=== PATIENT | male | born 1955 | race Caucasian/White ===

== ENCOUNTER 2019-05-18 20:25 | Emergency (ER) | payer MEDICARE, MEDICAID, SELFPAY ==
[2019-05-18 20:44] VITALS: BP 121/67; PULSE 94; RESP 13; TEMP 36.2; O2SAT 99
[2019-05-18 21:15] VITALS: RESP 14
--- NOTE | 2019-05-18 21:28 | ED.WOUNDLAC ---
HPI - Wound/Laceration General Chief Complaint: Wound/Laceration Stated Complaint: toe will not stop bleeding Time Seen by Provider: 05/18/19 20:50 Source: patient Mode of arrival: ambulatory Limitations: no limitations History of Present Illness HPI narrative: Omero is a 64-year-old male patient. He presents ambulatory to the emergency room. He states that he was trimming his toenails. He apparently just pulled the left great toenail out completely. He had bleeding. He was unable to control it at home and he came to the emergency room ambulatory. Denies any pain. Omero is a very poor historian. He did not bring any of his medication bottles with him. . He says that he is on some kind of blood thinner does not know what it is. He does not get regular blood tests for INR. He does not know why he is on a the blood thinner. He denies [place]. He denies history of stroke. Not sure about DVT or PE. However, mother time Omero arrived in the ER, he is completely asymptomatic. There was no bleeding from the left great toenail area. The nail bed is clean. This was further cleansed with wound cleanser. Sterile pressure dressings were applied. Omero says that he will follow-up with his family physician tomorrow. He has no complaints at this time. Onset (ago): minute(s) ( 30 minutes ago) Extremity Location: Left: foot Place: home Context: accidental Associated symptoms: other ( Accidentally pulled of the left great toenail while trying to trim it) Treatments prior to arrival: other ( applied pressure at home) Related Data Home Medications Medication Instructions Recorded Confirmed Unable to Obtain Home Medications 05/18/19 05/18/19 Allergies Allergy/AdvReac Type Severity Reaction Status Date / Time No Known Allergies Allergy Verified 05/18/19 20:43 Review of Systems Review of Systems: All systems reviewed & are unremarkable except as noted in HPI and below Constitutional: Constitutional: Reports as per HPI, Reports no additional constitutional complaints, Denies chills and Denies fever(s) Eyes: Eyes: Reports as per HPI, Reports no additional eye complaints and Denies change in vision ENT: Reports system reviewed and no additional complaints, except as documented, Denies epistaxis and Denies sore throat Cardiovascular: Cardiovascular: Reports as per HPI, Reports no additional cardiovascular complaints, Denies chest pain and Denies radiating jaw, neck or arm pain Respiratory: Respiratory: Reports as per HPI, Denies cough and Denies dyspnea Gastrointestinal: Gastrointestinal: Reports as per HPI, Denies abdominal pain, Denies nausea and Denies vomiting Musculoskeletal: Musculoskeletal: Reports no additional musculoskeletal complaints and Denies back pain Integumentary/Breasts: Skin/Breast: Reports system reviewed and no additional complaints, except as docu Comments: please see HPI narrative for details Neurologic: Reports system reviewed and no additional complaints, except as documented, Reports as per HPI, Denies dizziness, Denies focal weakness and Denies weakness Psychiatric: Psychiatric: Reports no additional psychiatric complaints and Denies anxiety Endocrine: Endocrine: Reports no additional endocrine complaints, Denies polydipsia and Denies polyuria Hematologic/Lymphatic: Hematologic/Lymphatic: Reports no additional hematologic/lymphatic complaints and Reports as per HPI Comments: please see HPI narrative. Omero says that he is on some kind of blood thinner but does not know what it is. Allergic/Immunologic: Allergic/Immunologic: Reports no additional allergic/immunologic complaints, Reports as per HPI, Denies lip swelling and Denies tongue swelling PMF Past Medical History Medical History (Updated 05/18/19 @ 21:40 by Jorge Chacko MD) Medical history unknown Surgical History Surgical History (Updated 05/18/19 @ 21:36 by Jorge Chacko MD) No significant past surgical history Social H
== END 2019-05-18 21:15 | disposition home or self-care (01) ==
PROVIDERS: Emergency Provider Surgery; PCP Family Medicine
DX: S91.209A Unspecified open wound of unspecified toe(s) with damage to nail, initial encounter (principal); W45.8XXA Other foreign body or object entering through skin, initial encounter
CPT/HCPCS: 99282

== ENCOUNTER 2019-09-15 23:49 | Inpatient (IN) | payer MEDICARE, MEDICAID, SELFPAY ==
--- NOTE | ~2019-09-15 | CT_ITS ---
EXAMINATION: CT brain wo con DATE: 09/16/2019 01:04 INDICATION: Syncope. Prefall laceration. Contusion top of the head. TECHNIQUE: Computed tomography (CT) of the head was performed without intravenous contrast. The dose- length product was 681.00 mGy-cm. The mA was adjusted according to patient size. Iterative reconstruc tion technique was employed. COMPARISON: CT dated 02/14/2018 FINDINGS: There are scattered mild periventricular and subcortical white matter changes, most likely related to small vessel ischemic disease (microangiopathy). No acute intracranial hemorrhage, infarct ion, mass or mass effect. No ventriculomegaly or midline shift. Basilar cisterns are patent. Mucosal thickening right maxillary sinus. Mastoids are pneumatized. No depressed skull fractures. Right front al scalp hematoma. No underlying skull fracture. IMPRESSION: 1. No acute intracranial abnormality. 2: Chronic age-related findings. 3: Right maxillary sinusitis. Reviewed, dictated and finalized at location A.
--- NOTE | ~2019-09-15 | CT_ITS ---
EXAMINATION: CT cervical spine wo con DATE: 09/16/2019 01:04 INDICATION: Syncope. Neck pain. TECHNIQUE: Computed tomography (CT) of the cervical spine was performed without intravenous contrast. The dose-length product was 497 mGy-cm. Automated exposure control and iterative reconstruction tech nique were employed. COMPARISON: None FINDINGS: No acute fracture or traumatic malalignment. Straightening of cervical lordosis. There is d egenerative anterolisthesis at C3-4. There is incomplete fusion of the C1 ring, developmental variant . Odontoid process within normal limits. Moderate multilevel uncinate hypertrophy. Lung apices are no rmal. IMPRESSION: 1. No acute abnormality of the cervical spine. Reviewed, dictated and finalized at location A.
[2019-09-15 23:50] VITALS: BP 102/63; PULSE 84; RESP 16; TEMP 35.6; O2SAT 97
[2019-09-16] VITALS (13 sets, daily range): BP systolic 83–116; BP diastolic 47–76; PULSE 88–121; RESP 14–18; TEMP 36.4–37; O2SAT 95–98; BMI 27.4
--- NOTE | 2019-09-16 | ECG_ITS ---
Measurements Intervals [place] Rate: 86 P: -6 MD: 166 QRS: 75 QRSD: 137 T: 35 QT: 392 QTc: 470 Interpretive Statements SINUS RHYTHM RIGHT BUNDLE BRANCH BLOCK ABNORMAL ECG Electronically Signed On 09-16-2019 7:17:08 CDT by Jim Ruiz D.O.
--- NOTE | 2019-09-16 | ED.SYNCOPE ---
HPI - Syncope General Chief Complaint: Fall Stated Complaint: pain Time Seen by Provider: 09/16/19 00:02 Source: patient and EMS Mode of arrival: EMS History of Present Illness HPI narrative: 64-year-old male patient was transported to the ER by EMS from his apartment. Apparently the EMS was called for an unresponsive male of by the neighbor stated the EMS on arrival found the patient initially not answering but immediately he woke up and open his eyes and started responding to them. The EMS noted a lot of blood on the floor and the reilly and apparently the patient had fallen several times the patient does not have recall of any falls. He has apparently passed out. Patient has a history of syncopal episodes and on of this month he was seen by the same EMS crew and [place] [facility] [place] taken to [facility] and apparently had a cardiac workup where he was diagnosed with coronary artery disease but no stents were placed. The patient states that he did have several beers this evening but does not remember falling and has no further addition to his history. He does complain about pain in the head. He denies doing any drugs and does admit to smoking. Patient does admit to using blood thinners. Um he is unclear about the loss of consciousness or feeling faint. He is not complaining of any pain in the neck however he has a C-collar in place. Patient is denying any pain in the chest or abdomen or the extremities. Related Data Home Medications Medication Instructions Recorded Confirmed aripiprazole 5 mg PO DAILY 09/16/19 09/16/19 atorvastatin 40 mg PO HS 09/16/19 09/16/19 clopidogrel 75 mg PO DAILY 09/16/19 09/16/19 duloxetine 60 mg PO DAILY 09/16/19 09/16/19 famotidine 20 mg PO DAILY 09/16/19 09/16/19 lamotrigine 200 mg PO DAILY 09/16/19 09/16/19 meclizine 25 mg PO PRN 09/16/19 09/16/19 metoprolol succinate 25 mg PO DAILY 09/16/19 09/16/19 mirtazapine 15 mg PO DAILY 09/16/19 09/16/19 naproxen 500 mg PO PRN 09/16/19 09/16/19 omeprazole 40 mg PO DAILY 09/16/19 09/16/19 quetiapine 200 mg PO DAILY 09/16/19 09/16/19 tamsulosin 0.4 mg PO DAILY 09/16/19 09/16/19 Allergies Allergy/AdvReac Type Severity Reaction Status Date / Time No Known Allergies Allergy Verified 06/01/19 09:13 Review of Systems Review of Systems: All systems reviewed & are unremarkable except as noted in HPI and below PMFSH Past Medical History Medical History (Updated 09/16/19 @ 01:46 by Elzbieta Shelley MD) CAD (coronary artery disease) GERD (gastroesophageal reflux disease) Hyperlipidemia Hypertension Medical history unknown Surgical History Surgical History (Updated 09/16/19 @ 01:06 by Elzbieta Shelley MD) No significant past surgical history No significant past surgical history Social History Social History (Updated 09/16/19 @ 00:19 by Elzbieta Shelley MD) Years smoked: 40 Smoking status: Current every day smoker Alcohol intake: current Substance use: never Living arrangements: alone Exam Const: General: no acute distress, alert and ill appearing Nutritional Appearance: well nourished Orientation/consciousness: patient oriented x3 Limitations: no limitations HENMT: Head: normal to inspection and laceration (Frontal scalp) Ears: external ears normal Face and sinus: normal facial exam Eyes: Conjunctivae: conjunctivae normal Pupils: Equal, round and reactive pupils present EOM: EOMs intact bilaterally Neck: Neck: normal visual inspection Chest: Chest palpation & inspection: normal inspection of the chest and no tenderness Other: C Collar in place Resp: Effort & Inspection: normal respiratory effort, no retractions and no use of accessory muscles Auscultation: clear to auscultation bilaterally, no rhonchi, no wheezes and lung sounds not diminished Cardio: Rate: regular rate Rhythm: regular rhythm GI: Auscultation: normal bowel sounds Other: soft and nontender abdomen with
[2019-09-16 00:15] LABS: Basophils Absolute Auto 0.04 K/mm3 (0.00-0.10); Basophils Percent Auto 0.4 % (0.0-1.0); Eosinophils Absolute Auto 0.22 K/mm3 (0.02-0.50); Hematocrit 26.8 % (40.0-54.0); Hemoglobin 9.1 g/dL (14.0-18.0); Immature Granulocyte Absolute 0.09 K/mm3 (0.00-0.00); Immature Granulocyte Percent A 0.8 % (0.0-0.0); Lymphocytes Absolute Auto 3.17 K/mm3 (1.10-4.50); Lymphocytes Percent Auto 28.2 % (18.0-42.0); Mean Corpuscular Hemoglobin 30.4 pg (27.0-31.0); Mean Corpuscular Volume 89.6 fL (78.0-102.0); Mean Platelet Volume 8.4 fl (8.7-11.0); Monocytes Absolute Auto 0.98 K/mm3 (0.10-0.90); Monocytes Percent Auto 8.7 % (2.0-11.0); Neutrophils Absolute Auto 6.8 K/mm3 (1.7-7.2); Neutrophils Percent Auto 59.9 % (50.0-70.0); Platelet Count Result 341 K/mm3 (150-420); Red Blood Count 2.99 M/mm3 (4.70-6.10); Red Cell Distribution Width 14.8 % (11.6-14.4); White Blood Count 11.3 K/mm3 (4.8-10.8)
[2019-09-16 00:22] LABS: INR 1.1; Prothrombin Time 11.1 Seconds (9.64-11.0)
[2019-09-16 00:27] LABS: Alanine Aminotransferase 13 U/L (16-63); Albumin Level 3.2 g/dL (3.4-5.0); Anion Gap 14.5 mmol/L (7-16); Aspartate Amino Transferase 15 U/L (15-37); Bilirubin,Total 0.2 mg/dL (0.00-1.00); Blood Urea Nitrogen 8 mg/dL (7-18); Calcium 7.8 mg/dL (8.5-10.1); Carbon Dioxide 24 mmol/L (21-32); Chloride 91 mmol/L (98-108); Estimated CRCL calculation 56 ml/min; Estimated Glomerular Filt Rate > 60; Ethanol 59 mg/dL (0-6); Glucose 147 mg/dL (70-99); Osmolality Calculated 263 mOsm/kg (285-295); Potassium 3.5 mmol/L (3.5-5.1); Sodium 126 mmol/L (136-145); Total Protein 5.8 g/dL (6.4-8.2)
[2019-09-16 00:29] LABS: Add Urine Microscopic? NO; Appearance Urine Clear (Clear); Bilirubin Urine Negative (Negative); Blood Urine Negative (Negative); Color Urine Yellow (Yellow); Glucose Urine UA Negative (Negative); Ketones Urine Negative (Negative); Leukocyte Esterase Ur Negative (Negative); Nitrate Urine Negative (Negative); Protein Urine Negative (Negative); Specific Grav Ur <= 1.005 (1.010-1.020); Urobilinogen Urine 0.2 mg/dL (0.2-1.0); pH Urine 6.5 (5.0-8.0)
[2019-09-16 00:36] LABS: Alkaline Phosphatase 65 U/L (46-116)
[2019-09-16 00:38] LABS: Troponin I < 0.02 ng/mL (0.00-0.056)
--- NOTE | 2019-09-16 00:44 | PC.NURSE ---
1 L NS BOLUS STARTED BY SAAS COMPLETE AT THIS TIME.
--- NOTE | 2019-09-16 00:46 | PC.NURSE ---
REPORT PROVIDED TO JACKLYN DOUGLAS
--- NOTE | 2019-09-16 01:11 | PC.NURSE ---
CT reports received, pts. head lac. cleansed and prepped for alethea. Pt. remains A&Ox3.
[2019-09-16] MEDS: LIDOCAINE HCL 1% LOCAL INJ 20 ML VIAL (01:16)
[2019-09-16 02:43] LABS: Magnesium 1.5 mg/dL (1.8-2.4)
[2019-09-16] MEDS: SODIUM CHLORIDE 0.9% IV 1,000 ML 120 ML IV CONT (03:41)
--- NOTE | 2019-09-16 04:16 | PC.NURSE ---
Dr. Shelley called to clarify diet order. Order received and noted.
--- NOTE | 2019-09-16 04:36 | PC.NURSE ---
Pt alert, oriented, forgetful. Pt has history of memory deficits . Librado in place to head, intact, no weeping of fluids. Naranjo in place draining clear yellow urine.
--- NOTE | 2019-09-16 06:04 | PC.NURSE ---
Telemetry continues SR.
--- NOTE | 2019-09-16 08:38 | PM.IMHP ---
H&P: HPI History of Present Illness Chief complaint: syncope postural hypotension Narrative: Omero Spangler is a 64 year old male that presented to the ED today post fall patient has a past medical history CAD, GERD, hyperlipidemia, hypertension , alcohol addiction and syncope. According to patient he went to bed approximately 8:00 p.m. after having 6 beers he can remember anything after going to bed. Patient's medical records indicate that his neighbor called EMS because he was unresponsive. When EMS arrived patient was found on the floor with a lot of blood on the floor . Patient had a similar episode on September 08 2019 and was transported to [facility]. Patient was diagnosed with CAD and stented by Dr. Meza. patient did that his lightheadedness has been approximately 6 months. his vital signs are 115/76, 100, 16, 97.5, 97% on room air He noted that when he stands up too quickly he gets lightheaded and feels like he is going to faint. patient did receive a laceration to his right frontal head. there is approximately [address] he also has a hematoma to his left parietal scalp. while patient was in the ED patient received IV fluid CT of the head with cervical spinal negative for fractures, intercranial hemorrhage or dislocation. EKG sinus rhythm, patient's sodium level 126 with a blood alcohol level of 59 troponin was negative white count 11. C-collar was placed on patient by EMS. Patient admitted for posteural hypotension, hyponatremia, anemia and syncope. it was reported by nursing staff that patient was unable to stand today for blood pressure due to dizziness, lightheadedness and feeling faint. Review of Systems Review of Systems: Narrative: CONSTITUTIONAL :No weight loss, fever, chills, weakness or fatigue.feeling faint and lightheaded HEENT: Eyes: No diplopia or blurred vision. ENT: No earache, sore throat or runny nose. CARDIOVASCULAR: No pressure, squeezing, strangling, tightness, heaviness or aching about the chest, neck, axilla or epigastrium. RESPIRATORY: No cough, shortness of breath, PND or orthopnea. GASTROINTESTINAL: No nausea, vomiting or diarrhea. GENITOURINARY: No dysuria, frequency or urgency. MUSCULOSKELETAL: No muscle, back pain, joint pain or stiffness. SKIN: laceration to the right side of head. NEUROLOGIC: No paresthesias, fasciculations, seizures or weakness. PSYCHIATRIC: No disorder of thought or mood. ENDOCRINE: No heat or cold intolerance, polyuria or polydipsia. HEMATOLOGICAL: No easy bruising or bleeding. [facility] Past Medical History Medical History (Updated 09/16/19 @ 01:46 by Elzbieta Shelley MD) CAD (coronary artery disease) GERD (gastroesophageal reflux disease) Hyperlipidemia Hypertension Medical history unknown Surgical History Surgical History (Updated 09/16/19 @ 01:06 by Elzbieta Shelley MD) No significant past surgical history No significant past surgical history Family History Family History (Updated 09/16/19 @ 04:24 by Kiara Cui LPN) Father Cancer Mother Cancer Social History Social History (Updated 09/16/19 @ 00:19 by Elzbieta Shelley MD) Years smoked: 40 Smoking status: Former smoker Tobacco type: cigarettes Second hand tobacco smoke exposure: Yes Alcohol intake: current Substance use: never Living arrangements: alone Gender identity (if verbalized by the patient): Male Spiritual care concerns: No Meds Home Medications and Allergies Home Medications Medication Instructions Recorded Confirmed Type aripiprazole 5 mg PO DAILY 09/16/19 09/16/19 History atorvastatin 40 mg PO HS 09/16/19 09/16/19 History clopidogrel 75 mg PO DAILY 09/16/19 09/16/19 History duloxetine 60 mg PO DAILY 09/16/19 09/16/19 History famotidine 20 mg PO DAILY 09/16/19 09/16/19 History lamotrigine 200 mg PO DAILY 09/16/19 09/16/19 History meclizine 25 mg PO PRN 09/16/19 09/16/19 History metoprolol succinate 25 mg PO DAILY 09/16/19
[2019-09-16] MEDS: DULoxetine HCL 30 MG CAPSULE.DR 60 MG PO (09:38)
[2019-09-16] MEDS: MIDODRINE HCL 2.5 MG TABLET 10 MG PO ×3 (09:39→17:12)
[2019-09-16] MEDS: FAMOTIDINE 20 MG TABLET PO (09:40)
[2019-09-16] MEDS: MIRTAZAPINE 15 MG TABLET PO (09:40)
[2019-09-16] MEDS: CLOPIDOGREL BISULFATE 75 MG TABLET PO (09:40)
[2019-09-16] MEDS: PANTOPRAZOLE 40 MG TABLET PO (09:40)
[2019-09-16] MEDS: lamoTRIgine 100 MG TABLET 200 MG PO (09:40)
[2019-09-16] MEDS: THIAMINE HCL 100 MG TABLET PO (10:12)
[2019-09-16] MEDS: FOLIC ACID 1 MG TABLET PO (10:12)
[2019-09-16] MEDS: ARIPIPRAZOLE 10 MG TABLET 5 MG PO (10:25)
[2019-09-16 10:59] LABS: Hematocrit 23.5 % (40.0-54.0); Hemoglobin 8.2 g/dL (14.0-18.0); Mean Corpuscular HGB Conc 34.9 g/dL (32.0-36.0); Mean Corpuscular Hemoglobin 30.9 pg (27.0-31.0); Mean Corpuscular Volume 88.7 fL (78.0-102.0); Mean Platelet Volume 8.3 fl (8.7-11.0); Platelet Count Result 281 K/mm3 (150-420); Red Blood Count 2.65 M/mm3 (4.70-6.10); Red Cell Distribution Width 14.9 % (11.6-14.4); White Blood Count 9.6 K/mm3 (4.8-10.8)
[2019-09-16 11:09] LABS: Creatinine Urine 14.81 mg/dL (40-278); Potassium Urine Random 13.4 mmol/L (12-62); Sodium Urine Random 11 mmol/L (20-110)
[2019-09-16 11:25] LABS: Alanine Aminotransferase 16 U/L (16-63); Albumin Level 3.3 g/dL (3.4-5.0); Anion Gap 10.1 mmol/L (7-16); Aspartate Amino Transferase 13 U/L (15-37); Bilirubin,Total 0.3 mg/dL (0.00-1.00); Blood Urea Nitrogen 9 mg/dL (7-18); Calcium 8.2 mg/dL (8.5-10.1); Carbon Dioxide 28 mmol/L (21-32); Chloride 100 mmol/L (98-108); Estimated CRCL calculation 64 ml/min; Estimated Glomerular Filt Rate > 60; Glucose 113 mg/dL (70-99); Osmolality Calculated 277 mOsm/kg (285-295); Potassium 4.1 mmol/L (3.5-5.1); Sodium 134 mmol/L (136-145)
[2019-09-16 11:41] LABS: Alkaline Phosphatase 69 U/L (46-116)
[2019-09-16 11:42] LABS: Total Protein Urine Random 11.6 mg/dL (0.0-11.9)
[2019-09-16 12:24] LABS: Magnesium 1.9 mg/dL (1.8-2.4)
[2019-09-16] MEDS: MAGNESIUM SULF 2 GM/WATER 50ML 2 GM/50 ML BAG IVPB (12:40)
[2019-09-16] MEDS: ONDANSETRON INJ 4 MG/2 ML VIAL IV PUSH (13:22)
[2019-09-16] MEDS: SODIUM CHLORIDE 0.9% IV 1,000 ML 50 ML IV CONT (14:12)
--- NOTE | 2019-09-16 15:53 | PC.NURSE ---
PT NEIGHBOR KEN CAN WATER RESOURCES BUSINESS SEGMENT LEADER WHEN DISCHARGED, PLEASE CALL: [phone]
--- NOTE | 2019-09-16 19:37 | PC.NURSE ---
PT SISTER CALLED FOR UPDATE ON PATIENT STATUS, PASSWORD OLGA GIVEN, UPDATE PROVIDED. SISTER REPORTS THAT NEIGHBOR CAN NO LONGER ORDER MANAGEMENT SPECIALIST PATIENT AT DISCHARGE, TO PLEASE CALL HER AT [phone] OR [phone] WHEN PATIENT DISCHARGED.
[2019-09-16] MEDS: ATORVASTATIN 40 MG TABLET PO (20:35)
--- NOTE | 2019-09-16 23:51 | PM.EVENT ---
Event Note Event Note Event Note: I examined the patient and reviewed the chart. I discussed the patient's care with Tran Weaver APN and agree with her assessment and plan.
[2019-09-17] VITALS (8 sets, daily range): BP systolic 102–126; BP diastolic 61–79; PULSE 85–98; RESP 18; TEMP 36.7–37; O2SAT 95–96
[2019-09-17 05:28] LABS: Hematocrit 22.8 % (40.0-54.0); Hemoglobin 7.8 g/dL (14.0-18.0); Mean Corpuscular HGB Conc 34.2 g/dL (32.0-36.0); Mean Corpuscular Volume 90.5 fL (78.0-102.0); Mean Platelet Volume 8.5 fl (8.7-11.0); Platelet Count Result 306 K/mm3 (150-420); Red Blood Count 2.52 M/mm3 (4.70-6.10); Red Cell Distribution Width 15.3 % (11.6-14.4); White Blood Count 6.8 K/mm3 (4.8-10.8)
[2019-09-17 05:46] LABS: Alanine Aminotransferase 15 U/L (16-63); Albumin Level 3.2 g/dL (3.4-5.0); Alkaline Phosphatase 66 U/L (46-116); Anion Gap 10.3 mmol/L (7-16); Aspartate Amino Transferase 13 U/L (15-37); Bilirubin,Total 0.2 mg/dL (0.00-1.00); Blood Urea Nitrogen 8 mg/dL (7-18); Calcium 8.1 mg/dL (8.5-10.1); Carbon Dioxide 29 mmol/L (21-32); Chloride 100 mmol/L (98-108); Estimated CRCL calculation 70 ml/min; Estimated Glomerular Filt Rate > 60; Glucose 104 mg/dL (70-99); Magnesium 2.1 mg/dL (1.8-2.4); Osmolality Calculated 278 mOsm/kg (285-295); Potassium 4.3 mmol/L (3.5-5.1); Sodium 135 mmol/L (136-145); Total Protein 6.1 g/dL (6.4-8.2)
--- NOTE | 2019-09-17 08:32 | P.DS_ITS ---
DS: Admitting Diagnosis Admitting Diagnosis Admitting Diagnosis: Syncope and collapse DS: Discharge Diagnosis Discharge Diagnosis (1) Syncope: Code(s): R55 - Syncope and collapse Status: Acute Assessment and Plan: * possibly secondary to alcohol use versus orthostatic hypertension versus hyponatremia * improved * lying 125/75 with a heart rate of 91 sitting 126/79 with a heart rate of 94 standing 121/61 with heart rate of * continue midodrine 10 mg p.o. t.i.d. 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 * EKG sinus rhythm with right bundle block branch * CT of the head and cervical spine negative for fractures, hemorrhage or dislocation * patient with laceration to the right frontal [address] also hematoma to the left parietal scalp * alcohol level 59, patient consumes a 6 pack of beer daily * troponins negative (2) Postural hypotension: Code(s): I95.1 - Orthostatic hypotension Status: Acute Assessment and Plan: * refer to syncope and collapse (3) Hyponatremia: Code(s): E87.1 - Hypo-osmolality and hyponatremia Status: Acute Assessment and Plan: * resolved * patient's sodium on admission 126, call patient's primary care physician office December patient's sodium level was 135. Assuming the patient baselines is135. today patient's sodium level was 135 (4) Anemia: Code(s): D64.9 - Anemia, unspecified Status: Acute Assessment and Plan: * patient H&H 9.1 and 26.8. 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 Meza * September 10 patient diagnosed with CAD stent placed * continue atorvastatin (6) GERD (gastroesophageal reflux disease): Code(s): K21.9 - Gastro-esophageal reflux disease without esophagitis Status: Acute Assessment and Plan: * continue Protonix (7) Hypertension: Code(s): I10 - Essential (primary) hypertension Status: Acute Assessment and Plan: * patient blood pressure stable * metoprolol and Flomax will restart, metoprolol will be decreased to half the amount * (8) Hyperlipidemia: Code(s): E78.5 - Hyperlipidemia, unspecified Status: Acute Assessment and Plan: * continue Plavix (9) Alcohol use: Code(s): Z72.89 - Other problems related to lifestyle Status: Acute Assessment and Plan: * patient educated on alcohol cessation * consult case coordination for referrals for counseling * patient denying alcohol use DS: Summary Hospital Course Hospital Course: Omero Spangler is a 64 year old male that presented to the ED post fall. He has a past medical history CAD, GERD, hyperlipidemia, hypertension , alcohol addiction and syncope. According to patient he went to bed approximately 8:00 p.m. after having 6 beers. he can not remember anything after going to bed. Patient's medical records indicate that his neighbor called EMS because he was unresponsive. When EMS arrived patient was found on the floor with a lot of blood on the floor . Patient had a similar episode on September 08 2019 and was transported to [facility]. Patient was diagnosed with CAD and stented by Dr. Meza. patient did note that his lightheadedness started approximately 6 months ago. He noted that when he stands up too quickly he gets lighth
--- NOTE | 2019-09-17 08:32 | PM.DS ---
DS: Admitting Diagnosis Admitting Diagnosis Admitting Diagnosis: Syncope and collapse DS: Discharge Diagnosis Discharge Diagnosis (1) Syncope: Code(s): R55 - Syncope and collapse Status: Acute Assessment and Plan: possibly secondary to alcohol use versus orthostatic hypertension versus hyponatremia improved lying 125/75 with a heart rate of 91 sitting 126/79 with a heart rate of 94 standing 121/61 with heart rate of continue midodrine [address] 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 EKG sinus rhythm with right bundle block branch CT of the head and cervical spine negative for fractures, hemorrhage or dislocation patient with laceration to the right frontal [address] also hematoma to the left parietal scalp alcohol level 59, patient consumes a 6 pack of beer daily troponins negative (2) Postural hypotension: Code(s): I95.1 - Orthostatic hypotension Status: Acute Assessment and Plan: refer to syncope and collapse (3) Hyponatremia: Code(s): E87.1 - Hypo-osmolality and hyponatremia Status: Acute Assessment and Plan: resolved patient's sodium on admission 126, call patient's primary care physician office December patient's sodium level was 135. Assuming the patient baselines is135. today patient's sodium level was 135 (4) Anemia: Code(s): D64.9 - Anemia, unspecified Status: Acute Assessment and Plan: patient H&H 9.1 and 26.8. patient is at baseline (5) CAD (coronary artery disease): Code(s): I25.10 - Atherosclerotic heart disease of [place] coronary artery without angina pectoris Status: Acute Assessment and Plan: patient lathe setup operator is Dr. Meza September 10 patient diagnosed with CAD stent placed continue atorvastatin (6) GERD (gastroesophageal reflux disease): Code(s): K21.9 - Gastro-esophageal reflux disease without esophagitis Status: Acute Assessment and Plan: continue Protonix (7) Hypertension: Code(s): I10 - Essential (primary) hypertension Status: Acute Assessment and Plan: patient blood pressure stable metoprolol and Flomax will restart, metoprolol will be decreased to half the amount (8) Hyperlipidemia: Code(s): E78.5 - Hyperlipidemia, unspecified Status: Acute Assessment and Plan: continue Plavix (9) Alcohol use: Code(s): Z72.89 - Other problems related to lifestyle Status: Acute Assessment and Plan: patient educated on alcohol cessation consult case coordination for referrals for counseling patient denying alcohol use DS: Summary Hospital Course Hospital Course: Omero Spangler is a 64 year old male that presented to the ED post fall. He has a past medical history CAD, GERD, hyperlipidemia, hypertension , alcohol addiction and syncope. According to patient he went to bed approximately 8:00 p.m. after having 6 beers. he can not remember anything after going to bed. Patient's medical records indicate that his neighbor called EMS because he was unresponsive. When EMS arrived patient was found on the floor with a lot of blood on the floor . Patient had a similar episode on September 08 2019 and was transported to [facility]. Patient was diagnosed with CAD and stented by Dr. Meza. patient did note that his lightheadedness started approximately 6 months ago. He noted that when he stands up too quickly he gets lightheaded and feels like he is going to faint. patient did receive a laceration to his right frontal head. there is approximately [address] he also has a hematoma to his left parietal scalp. patient was placed on mididrone 10 mg tid He will discharge on this. Patient was also prescribed Lopressor 25 mg daily. I contacted Dr. Meza office to inform them of patient admission and informed them that patient Lop
[2019-09-17] MEDS: lamoTRIgine 100 MG TABLET 200 MG PO (08:56)
[2019-09-17] MEDS: ARIPIPRAZOLE 10 MG TABLET 5 MG PO (08:56)
[2019-09-17] MEDS: CLOPIDOGREL BISULFATE 75 MG TABLET PO (08:57)
[2019-09-17] MEDS: FAMOTIDINE 20 MG TABLET PO (08:57)
[2019-09-17] MEDS: MIDODRINE HCL 2.5 MG TABLET 10 MG PO (08:57)
[2019-09-17] MEDS: MIRTAZAPINE 15 MG TABLET PO (08:57)
[2019-09-17] MEDS: THIAMINE HCL 100 MG TABLET PO (08:58)
[2019-09-17] MEDS: FOLIC ACID 1 MG TABLET PO (08:58)
[2019-09-17] MEDS: PANTOPRAZOLE 40 MG TABLET PO (08:58)
[2019-09-17] MEDS: DULoxetine HCL 30 MG CAPSULE.DR 60 MG PO (08:58)
--- NOTE | 2019-09-17 17:41 | PM.EVENT ---
Event Note Event Note Event Note: I have examined the patient and reviewed the chart. I discussed the patient's care with Tran Weaver APN and agree with her assessment and plan.
== END 2019-09-17 11:40 | disposition home or self-care (01) | DRG 312 ==
LOC: CHSED 09-16 01:46 → CHS2ND 09-16 03:19
PROVIDERS: Nurse Practitioner; Admitting Provider Emergency Medicine; Emergency Provider Emergency Medicine; PCP Family Medicine; Visit Provider Emergency Medicine
DX: R55 Syncope and collapse (principal); E87.1 Hypo-osmolality and hyponatremia; I95.81 Postprocedural hypotension; D64.9 Anemia, unspecified; S01.01XA Laceration without foreign body of scalp, initial encounter; J32.0 Chronic maxillary sinusitis; I25.10 Atherosclerotic heart disease of native coronary artery without angina pectoris; K21.9 Gastro-esophageal reflux disease without esophagitis; E78.5 Hyperlipidemia, unspecified; I10 Essential (primary) hypertension; F10.20 Alcohol dependence, uncomplicated; W19.XXXA Unspecified fall, initial encounter; Z87.891 Personal history of nicotine dependence
CPT/HCPCS: 12002; 36415; 70450; 72125; 80053; 80307; 81003; 81050; 82570; 83735; 84133; 84156; 84300; 84484; 85025; 85027; 85610; 93005; 97161; 99283; 99285; A9270; J1650; J2405; J3475; J7030

== ENCOUNTER 2019-09-26 10:27 | Emergency (ER) | payer MEDICARE, MEDICAID, SELFPAY ==
[2019-09-26 10:36] VITALS: BP 112/67; PULSE 101; RESP 15; TEMP 37.1; O2SAT 98
--- NOTE | 2019-09-26 10:51 | ED.GENADULT ---
HPI - General Adult General Chief complaint: Unspecified Stated complaint: Stryker in head Source: patient History of Present Illness HPI narrative: 64-year-old patient presents with some staple removal that were placed approximately 1 week ago had 6 alethea placed in the right frontal scalp approximately 1 week ago after he fell causing laceration and alethea were placed. Patient is well doing well with no current events, no headaches no nausea vomiting the area looks well approximated with no redness no drainage no fever or chills. MD complaint: This is a 64-year-old patient that presents with some staple removal. Onset (ago): week(s) Location: head Relieving factors: none Exacerbating factors: none Associated symptoms: denies other symptoms Treatments prior to arrival: none Related Data Home Medications Medication Instructions Recorded Confirmed aripiprazole 5 mg PO DAILY 09/16/19 09/16/19 atorvastatin 40 mg PO HS 09/16/19 09/16/19 clopidogrel 75 mg PO DAILY 09/16/19 09/16/19 duloxetine 60 mg PO DAILY 09/16/19 09/16/19 famotidine 20 mg PO DAILY 09/16/19 09/16/19 lamotrigine 200 mg PO DAILY 09/16/19 09/16/19 meclizine 25 mg PO PRN 09/16/19 09/16/19 mirtazapine 15 mg PO DAILY 09/16/19 09/16/19 naproxen 500 mg PO PRN 09/16/19 09/16/19 omeprazole 40 mg PO DAILY 09/16/19 09/16/19 quetiapine 200 mg PO DAILY 09/16/19 09/16/19 tamsulosin 0.4 mg PO DAILY 09/16/19 09/16/19 Allergies Allergy/AdvReac Type Severity Reaction Status Date / Time No Known Allergies Allergy Verified 06/01/19 09:13 Review of Systems Review of Systems: All systems reviewed & are unremarkable except as noted in HPI and below PMFSH Past Medical History Medical History CAD (coronary artery disease) GERD (gastroesophageal reflux disease) Hyperlipidemia Hypertension Medical history unknown Surgical History Surgical History No significant past surgical history No significant past surgical history Family History Family History Father Cancer Mother Cancer Social History Social History Years smoked: 40 Smoking status: Former smoker Tobacco type: cigarettes Second hand tobacco smoke exposure: Yes Alcohol intake: current Substance use: never Gender identity (if verbalized by the patient): Male Spiritual care concerns: No Exam Const: General: no acute distress and alert Orientation/consciousness: patient oriented x3 HENMT: Head: normal to inspection Eyes: Conjunctivae: conjunctivae normal Pupils: Equal, round and reactive pupils present Neck: Neck: normal visual inspection Chest: Chest palpation & inspection: normal inspection of the chest Resp: Effort & Inspection: normal respiratory effort Auscultation: clear to auscultation bilaterally Cardio: Rate: regular rate Rhythm: regular rhythm GI: GI Palp: Yes Soft to palpation Skin: Wounds: wounds noted ( Six stables removed from right frontal scalp) Neuro: General: patient oriented x3, moves all extremities, no meningeal signs and no focal motor deficits Psych: Mental Status: mental status grossly normal Course Course Emergency Course: patient had 6 alethea removed from right frontal scalp patient tolerated procedure well. Vital Signs Vital signs: Vital Signs Temperature 37.1 C 09/26/19 10:36 Pulse Rate 101 H 09/26/19 10:36 Respiratory Rate 09/26/19 10:36 Blood Pressure 112/67 09/26/19 10:36 Pulse Oximetry 98 09/26/19 10:36 Temperature 37.1 C 09/26/19 10:36 Pulse Rate 101 H 09/26/19 10:36 Respiratory Rate 15 09/26/19 10:36 Blood Pressure 112/67 09/26/19 10:36 Pulse Oximetry 98 09/26/19 10:36 Procedures Other Procedure Procedure 1: Other Procedure: Six stables removed from rig
== END 2019-09-26 11:04 | disposition home or self-care (01) ==
PROVIDERS: Emergency Provider Emergency Medicine; PCP Family Medicine
DX: Z48.02 Encounter for removal of sutures (principal)
CPT/HCPCS: 99281

== ENCOUNTER 2019-09-27 12:31 | Observation (INO) | payer MEDICARE, MEDICAID, SELFPAY ==
[2019-09-27] VITALS (13 sets, daily range): BP systolic 91–128; BP diastolic 53–76; PULSE 84–114; RESP 15–20; TEMP 36.2–37.1; O2SAT 96–100; BMI 25.9
--- NOTE | ~2019-09-27 | CT_ITS ---
EXAMINATION: CT brain wo con DATE: 09/27/2019 13:25 INDICATION: Syncope. TECHNIQUE: Computed tomography (CT) of the head was performed without intravenous contrast. The mA wa s adjusted according to patient size. Iterative reconstruction technique was employed. The dose-lengt h product was 681.00 mGy-cm. COMPARISON: Head CT 09/16/2019 FINDINGS: There are scattered areas of low attenuation in the cerebral white matter, which is within normal limits for the patient's age. There is no intracranial hemorrhage, acute infarction, or abnorm al intracranial mass lesion. The ventricles are normal in size. There is mucosal thickening in the pa ranasal sinuses. The orbits are normal. The mastoid air cells are normal. IMPRESSION: 1. Normal aging brain. Reviewed, dictated and finalized at location A. IMPRESSION: 1. Normal aging brain.
--- NOTE | ~2019-09-27 | XR_ITS ---
EXAMINATION: XR chest 2V DATE: 09/27/2019 13:24 INDICATION: Tachycardia. Falls. TECHNIQUE: Frontal and lateral views of the chest were obtained. COMPARISON: Chest single view 10/08/2018, chest CT 11/23/2018 FINDINGS: The chest demonstrates clear lungs without pneumonia, pleural effusion, or pneumothorax. Th e heart size is normal. IMPRESSION: 1. No acute cardiopulmonary disease. Reviewed, dictated and finalized at location A.
--- NOTE | 2019-09-27 12:34 | ECG_ITS ---
Measurements Intervals [place] Rate: 119 P: 40 [place]: 173 QRS: 70 QRSD: 130 T: 25 QT: 322 QTc: 454 Interpretive Statements SINUS TACHYCARDIA RIGHT BUNDLE BRANCH BLOCK BASELINE ARTIFACT- I, II, III, AVR, AVL, AVF, V2 ABNORMAL ECG Electronically Signed On 09-28-2019 6:48:09 CDT by Jim Ruiz D.O.
--- NOTE | 2019-09-27 12:43 | ED.WEAKNESS ---
HPI - Weakness General Chief complaint: Fall Stated complaint: Ambulance Time Seen by Provider: 09/27/19 12:34 Source: patient Mode of arrival: ambulatory Limitations: no limitations History of Present Illness HPI Narrative: 64-year-old man brought to the emergency department today after falling at home. He was brought by EMS. He was alert on arrival. He states that he has been feeling weak when he stands up and very lightheaded. He also complains of some mild epigastric pain. He states he last ate last night when he had a hamburger. He denies any recent alcohol use. He has had no vomiting, diarrhea, black stools, bloody stools, bruising, rash, leg swelling, shortness of breath, or chest pain. He denies headache. Denies history of GI bleeding. MD Complaint: generalized weakness Onset (ago): day(s) (1-2) Duration: intermittent Location: generalized Migration: none Severity: severe Relieving factors: rest and other ( Sitting or lying down) Exacerbating factors: other (standing) Context: recent illness Associated symptoms: syncope Related Data Home Medications Medication Instructions Recorded Confirmed aripiprazole 5 mg PO DAILY 09/16/19 09/27/19 atorvastatin 40 mg PO HS 09/16/19 09/27/19 clopidogrel 75 mg PO DAILY 09/16/19 09/27/19 duloxetine 60 mg PO DAILY 09/16/19 09/27/19 famotidine 20 mg PO DAILY 09/16/19 09/27/19 lamotrigine 200 mg PO DAILY 09/16/19 09/27/19 meclizine 25 mg PO PRN 09/16/19 09/27/19 mirtazapine 15 mg PO DAILY 09/16/19 09/27/19 naproxen 500 mg PO PRN 09/16/19 09/27/19 omeprazole 40 mg PO DAILY 09/16/19 09/27/19 quetiapine 400 mg PO HS 09/16/19 09/27/19 tamsulosin 0.4 mg PO DAILY 09/16/19 09/27/19 aspirin 81 mg PO DAILY 09/27/19 09/27/19 folic acid 1 mg PO DAILY 09/27/19 09/27/19 lamotrigine 150 mg PO QA 09/27/19 09/27/19 Allergies Allergy/AdvReac Type Severity Reaction Status Date / Time No Known Allergies Allergy Verified 06/01/19 09:13 Review of Systems Constitutional: Constitutional: Denies chills, Denies fever(s) and Reports weakness Eyes: Eyes: Denies change in vision and Denies photophobia ENT: Denies dysphagia, Denies nasal congestion and Denies sore throat Cardiovascular: Cardiovascular: Reports chest pain, Denies rapid heart rate, Denies radiating jaw, neck or arm pain and Denies slow heart rate Respiratory: Respiratory: Denies cough, Denies dyspnea and Denies wheezing Gastrointestinal: Gastrointestinal: Reports as per HPI, Reports abdominal pain, Denies diarrhea, Denies nausea and Denies vomiting Genitourinary: Genitourinary: Denies hematuria, Denies dysuria and Denies urinary frequency Musculoskeletal: Musculoskeletal: Denies back pain, Denies arthralgias and Denies joint swelling Integumentary/Breasts: Skin/Breast: Denies pruritus, Denies erythema and Denies rash Neurologic: Denies vertigo, Denies dizziness and Denies syncope Psychiatric: Psychiatric: Reports anxiety and Denies depression Endocrine: Endocrine: Denies polydipsia and Denies polyuria Hematologic/Lymphatic: Hematologic/Lymphatic: Denies easy bleeding and Denies easy bruising Allergic/Immunologic: Allergic/Immunologic: Denies lip swelling and Denies wheezing PMFSH Past Medical History Medical History CAD (coronary artery disease) GERD (gastroesophageal reflux disease) Hyperlipidemia Hypertension Medical history unknown Surgical History Surgical History No significant past surgical history No significant past surgical history Social History Social History Years smoked: 40 Smoking status: Former smoker Tobacco type: cigarettes Second hand tobacco smoke exposure: Yes Alcohol intake: current Substance use: never Gender identity (if verbalized by the patient): Male Spiritual care concerns: No Exam Const: G
[2019-09-27 12:54] LABS: Basophils Absolute Auto 0.03 K/mm3 (0.00-0.10); Basophils Percent Auto 0.3 % (0.0-1.0); Eosinophils Absolute Auto 0.16 K/mm3 (0.02-0.50); Eosinophils Percent Auto 1.9 % (1.0-6.0); Hematocrit 21.2 % (40.0-54.0); Immature Granulocyte Absolute 0.03 K/mm3 (0.00-0.00); Immature Granulocyte Percent A 0.3 % (0.0-0.0); Lymphocytes Percent Auto 16.2 % (18.0-42.0); Mean Corpuscular Hemoglobin 29.3 pg (27.0-31.0); Mean Corpuscular Volume 88.7 fL (78.0-102.0); Mean Platelet Volume 7.7 fl (8.7-11.0); Monocytes Absolute Auto 0.85 K/mm3 (0.10-0.90); Monocytes Percent Auto 9.8 % (2.0-11.0); Neutrophils Absolute Auto 6.2 K/mm3 (1.7-7.2); Neutrophils Percent Auto 71.5 % (50.0-70.0); Platelet Count Result 480 K/mm3 (150-420); Red Blood Count 2.39 M/mm3 (4.70-6.10); Red Cell Distribution Width 15.3 % (11.6-14.4); White Blood Count 8.6 K/mm3 (4.8-10.8)
[2019-09-27 13:06] LABS: Alanine Aminotransferase 17 U/L (16-63); Albumin Level 3.7 g/dL (3.4-5.0); Alkaline Phosphatase 65 U/L (46-116); Anion Gap 10.2 mmol/L (7-16); Aspartate Amino Transferase 15 U/L (15-37); Bilirubin,Total 0.4 mg/dL (0.00-1.00); Blood Urea Nitrogen 10 mg/dL (7-18); CRP 0.3 mg/dL (0.0-0.9); Calcium 8.4 mg/dL (8.5-10.1); Carbon Dioxide 28 mmol/L (21-32); Chloride 96 mmol/L (98-108); Estimated Glomerular Filt Rate 59; Glucose 115 mg/dL (70-99); Osmolality Calculated 270 mOsm/kg (285-295); Potassium 4.2 mmol/L (3.5-5.1); Prothrombin Time 10.6 Seconds (9.64-11.0); Sodium 130 mmol/L (136-145); Total Protein 6.6 g/dL (6.4-8.2)
[2019-09-27 13:09] LABS: Lactic Acid Reflex 1.7 mmol/L (0.4-2.0)
[2019-09-27 13:10] LABS: D Dimer 0.91 mg/L (0.19-0.50)
[2019-09-27 13:26] LABS: Troponin I < 0.02 ng/mL (0.00-0.056)
[2019-09-27] MEDS: PANTOPRAZOLE SODIUM IV 40 MG VIAL 80 MG IV PUSH (13:35)
--- NOTE | 2019-09-27 13:44 | PC.NURSE ---
RECTAL EXAM COMPLETED PER ERP
[2019-09-27 13:48] LABS: Occult Blood Negative (Negative)
[2019-09-27 13:53] LABS: Ammonia 36 umol/L (11-32); Salicylate 5.4 mg/dL (2.8-20.0)
[2019-09-27 13:55] LABS: Acetaminophen 0 ug/mL (10-30); Ethanol < 3 mg/dL (0-6)
[2019-09-27 14:02] LABS: Add Urine Microscopic? YES; Appearance Urine Clear (Clear); Bilirubin Urine Negative (Negative); Blood Urine Negative (Negative); Color Urine Yellow (Yellow); Glucose Urine UA Negative (Negative); Ketones Urine Negative (Negative); Leukocyte Esterase Ur Trace LEU/UL (Negative); Nitrate Urine Negative (Negative); Protein Urine Negative (Negative); Specific Grav Ur <= 1.005 (1.010-1.020); Urobilinogen Urine 0.2 mg/dL (0.2-1.0)
[2019-09-27 14:08] LABS: Bacteria Urine None seen /hpf; RBC Urine None seen /hpf (0-2); Squamous Epithelial Cell Urine Rare /hpf (Few); WBC Urine None seen /hpf (0-3)
[2019-09-27 14:10] LABS: Amphetamine Screen Urine Negative (Negative); Barbiturate Screen Urine Negative (Negative); Benzodiazepines Screen Urine Negative (Negative); Cannabinoid Screen Urine Negative (Negative); Cocaine Screen Urine Negative (Negative); Methadone Screen Urine Negative (Negative); Opiate Screen Urine Negative (Negative); Phencyclidine Screen Urine Negative (Negative)
[2019-09-27] MEDS: SODIUM CHLORIDE 0.9% IV 1,000 ML 150 ML IV CONT (14:30)
--- NOTE | 2019-09-27 15:05 | PC.NURSE ---
Patient brought to floor per stretcher from ED. Oriented to room and call call light. Assisted up to commode then back to bed
[2019-09-27 17:02] LABS: Troponin I < 0.02 ng/mL (0.00-0.056)
[2019-09-27] MEDS: MIDODRINE HCL 2.5 MG TABLET 10 MG PO (17:18)
[2019-09-27] MEDS: SODIUM CHLORIDE 0.9% IV 1,000 ML 100 ML IV CONT (18:02)
--- NOTE | 2019-09-27 19:40 | PC.NURSE ---
Patient ambulated to the bathroom with assist of staff writer, a gait belt, and a walker. He reports dizziness upon standing. His gait is unsteady. Patient had a small bowel movement and returned to bed.
[2019-09-27] MEDS: ATORVASTATIN 40 MG TABLET PO (20:31)
[2019-09-27] MEDS: MIRTAZAPINE 15 MG TABLET PO (20:31)
[2019-09-27] MEDS: QUEtiapine FUMARATE 100 MG TABLET 400 MG PO (20:31)
[2019-09-27 20:58] LABS: Hematocrit 24.6 % (40.0-54.0); Hemoglobin 8.1 g/dL (14.0-18.0); Mean Corpuscular HGB Conc 32.9 g/dL (32.0-36.0); Mean Corpuscular Hemoglobin 28.9 pg (27.0-31.0); Mean Corpuscular Volume 87.9 fL (78.0-102.0); Mean Platelet Volume 7.8 fl (8.7-11.0); Platelet Count Result 429 K/mm3 (150-420); Red Cell Distribution Width 15.2 % (11.6-14.4); White Blood Count 6.8 K/mm3 (4.8-10.8)
[2019-09-27 21:17] LABS: Troponin I < 0.02 ng/mL (0.00-0.056)
--- NOTE | 2019-09-27 21:29 | PC.NURSE ---
Patient payee/support person called to find information about patient. Patient gave permission to speak with her and established a password(Crys). She expressed concerns about patients self care at home. Stated patient has not been taking medication correctly and has had increase in falls recently. Will refer to 7th grade social studies teacher. HGB and Hematicrit back. Dr. Hodge notified of results
[2019-09-28] VITALS (7 sets, daily range): BP systolic 115–136; BP diastolic 74–84; PULSE 60–91; RESP 18–20; TEMP 36.4–36.9; O2SAT 96–98
[2019-09-28] MEDS: SODIUM CHLORIDE 0.9% IV 1,000 ML 100 ML IV CONT (03:31)
[2019-09-28 05:10] LABS: Basophils Absolute Auto 0.03 K/mm3 (0.00-0.10); Basophils Percent Auto 0.7 % (0.0-1.0); Eosinophils Absolute Auto 0.21 K/mm3 (0.02-0.50); Eosinophils Percent Auto 4.6 % (1.0-6.0); Hematocrit 26.1 % (40.0-54.0); Hemoglobin 8.3 g/dL (14.0-18.0); Immature Granulocyte Absolute 0.01 K/mm3 (0.00-0.00); Immature Granulocyte Percent A 0.2 % (0.0-0.0); Lymphocytes Absolute Auto 1.56 K/mm3 (1.10-4.50); Lymphocytes Percent Auto 34.5 % (18.0-42.0); Mean Corpuscular HGB Conc 31.8 g/dL (32.0-36.0); Mean Corpuscular Hemoglobin 28.4 pg (27.0-31.0); Mean Corpuscular Volume 89.4 fL (78.0-102.0); Mean Platelet Volume 8.1 fl (8.7-11.0); Monocytes Absolute Auto 0.56 K/mm3 (0.10-0.90); Monocytes Percent Auto 12.4 % (2.0-11.0); Neutrophils Absolute Auto 2.2 K/mm3 (1.7-7.2); Neutrophils Percent Auto 47.6 % (50.0-70.0); Platelet Count Result 487 K/mm3 (150-420); Red Blood Count 2.92 M/mm3 (4.70-6.10); Red Cell Distribution Width 15.5 % (11.6-14.4); White Blood Count 4.5 K/mm3 (4.8-10.8)
[2019-09-28 05:25] LABS: Alanine Aminotransferase 20 U/L (16-63); Albumin Level 3.3 g/dL (3.4-5.0); Alkaline Phosphatase 71 U/L (46-116); Anion Gap 7.8 mmol/L (7-16); Aspartate Amino Transferase 17 U/L (15-37); Bilirubin,Total 0.4 mg/dL (0.00-1.00); Blood Urea Nitrogen 7 mg/dL (7-18); Calcium 8.4 mg/dL (8.5-10.1); Carbon Dioxide 30 mmol/L (21-32); Chloride 103 mmol/L (98-108); Estimated CRCL calculation 67 ml/min; Estimated Glomerular Filt Rate > 60; Glucose 93 mg/dL (70-99); Osmolality Calculated 280 mOsm/kg (285-295); Potassium 4.8 mmol/L (3.5-5.1); Sodium 136 mmol/L (136-145); Total Protein 6.4 g/dL (6.4-8.2)
[2019-09-28 05:30] LABS: Lactic Acid 1.3 mmol/L (0.4-2.0)
[2019-09-28] MEDS: MIDODRINE HCL 2.5 MG TABLET 10 MG PO (10:03)
[2019-09-28] MEDS: PANTOPRAZOLE 40 MG TABLET PO (10:03)
[2019-09-28] MEDS: DULoxetine HCL 30 MG CAPSULE.DR 60 MG PO (10:04)
[2019-09-28] MEDS: FOLIC ACID 1 MG TABLET PO (10:06)
[2019-09-28] MEDS: lamoTRIgine 100 MG TABLET 200 MG PO (10:06)
[2019-09-28] MEDS: METOPROLOL TARTRATE 25 MG TABLET 12.5 MG PO (10:06)
[2019-09-28] MEDS: ARIPiprazole 5 MG TABLET PO (10:07)
[2019-09-28] MEDS: FAMOTIDINE 20 MG TABLET PO (10:07)
[2019-09-28] MEDS: TAMSULOSIN HCL 0.4 MG CAPSULE PO (10:07)
--- NOTE | 2019-09-28 11:36 | PM.SD ---
Same Day Admit/Disch: HPI History of Present Illness Chief complaint: R/O GI Bleed <ALISSA Madrigal - Last Filed: 09/28/19 12:11> Narrative: Omero Spangler is a 64 year old male that presented to the ED post fall.Patient has a past medical history of CAD, GERD hyperlipidemia, hypertension and orthostatic hypotension. patient was recently admitted to this hospital post fall secondary to alcohol use and orthostatic hypotension. Patient was placed on midodrine 10 mg p.o. t.i.d. patient was admitted this time for a mechanical fall. according to patient he has had a problem with unrepaired carpet in his home which caused him to fall. patient drug screen did not indicate any alcohol. according to patient he has spoke with his landlord several times about his carpet. a CT of the head was completed which was unremarkable patient EKG was sinus tach 119 Zutshi 1 was negative x2 his ammonia was slightly elevated at 36, his D-dimer was also elevated at 0.91 patient did not complain of any shortness of breath or difficulty breathing. patient hemoglobin was at 7.0 he was transfused 1 unit of PRBCs Patient able to tolerate all meals , slept well and ambulate at baseline. Patient denies SOB, CP, palpitation, extremity numbness, lightheadness, dizziness, constipation, diarrhea, chills or fever. Patient agree that they are ready for discharge and discharge plan. <ALISSA Madrigal - Last Filed: 09/28/19 12:11> [facility] Past Medical History Medical History: Medical History CAD (coronary artery disease) GERD (gastroesophageal reflux disease) Hyperlipidemia Hypertension Medical history unknown <ALISSA Madrigal - Last Filed: 09/28/19 12:11> Surgical History Surgical History: Surgical History No significant past surgical history No significant past surgical history <ALISSA Madrigal - Last Filed: 09/28/19 12:11> Social History Social History: Social History Smoking packs per day: 0.5 Smoking cigarettes per day: 10.0 Years smoked: 48 Smoking pack-years: 24.00 Smoking status: Current every day smoker Tobacco type: cigarettes Second hand tobacco smoke exposure: No Alcohol intake: former Substance use: never Other substance usage details: No drinking x 1 month per patient report Gender identity (if verbalized by the patient): Male Spiritual care concerns: No <ALISSA Madrigal - Last Filed: 09/28/19 12:11> Same Day Admit/Disch: Med Pre-admit Medications Home Medications: Home Medications Medication Instructions Recorded Confirmed Type aripiprazole 5 mg PO DAILY 09/16/19 09/27/19 History atorvastatin 40 mg PO HS 09/16/19 09/27/19 History clopidogrel 75 mg PO DAILY 09/16/19 09/27/19 History duloxetine 60 mg PO DAILY 09/16/19 09/27/19 History famotidine 20 mg PO DAILY 09/16/19 09/27/19 History meclizine 25 mg PO PRN 09/16/19 09/27/19 History mirtazapine 15 mg PO DAILY 09/16/19 09/27/19 History naproxen 500 mg PO PRN 09/16/19 09/27/19 History omeprazole 40 mg PO DAILY 09/16/19 09/27/19 History quetiapine 400 mg PO HS 09/16/19 09/27/19 History tamsulosin 0.4 mg PO DAILY 09/16/19 09/27/19 History metoprolol tartrate 12.5 mg PO DAILY #30 tablet 09/17/19 09/27/19 Rx midodrine 10 mg PO TID #180 tablet 09/17/19 09/27/19 Rx aspirin 81 mg PO DAILY 09/27/19 09/27/19 History folic acid 1 mg PO DAILY 09/27/19 09/27/19 History lamotrigine 150 mg PO QAM 09/27/19 09/27/19 History <ALISSA Madrigal - Last Filed: 09/28/19 12:11> Exam Narrative: Exam Narrative: General: A well-developed, well-nourished male sitting up in bed no acute distress. HEENT: Normocephalic, atraumatic. PERRL, EOMI. Sclerae anicteric. Oral mucosa moist. Oropharynx clear. Neck: Supple. Respiratory: Lungs are clear t
== END 2019-09-28 14:15 | disposition home or self-care (01) ==
LOC: CHSED 14:06 → CHS2ND 09-28 07:03
PROVIDERS: Admitting Provider Emergency Medicine; Emergency Provider Emergency Medicine; PCP Family Medicine; Visit Provider Emergency Medicine
DX: D64.9 Anemia, unspecified (principal); E87.1 Hypo-osmolality and hyponatremia; I25.10 Atherosclerotic heart disease of native coronary artery without angina pectoris; K21.9 Gastro-esophageal reflux disease without esophagitis; E78.5 Hyperlipidemia, unspecified; I10 Essential (primary) hypertension; R29.6 Repeated falls; F17.210 Nicotine dependence, cigarettes, uncomplicated; Z79.899 Other long term (current) drug therapy
CPT/HCPCS: 36415; 36430; 70450; 71046; 80053; 80307; 81001; 82140; 82272; 83605; 84484; 85025; 85027; 85380; 85610; 85730; 86140; 86850; 86900; 86901; 86920; 87040; 93005; 96360; 96361; 96374; 99284; 99285; A9270; C9113; G0378; G0379; J7030; L0150; P9016

== ENCOUNTER 2020-03-20 12:11 | Emergency (ER) | payer MEDICARE, MEDICAID, SELFPAY ==
[2020-03-20] VITALS (13 sets, daily range): BP systolic 126–138; BP diastolic 74–92; PULSE 78–84; RESP 14–20; TEMP 36.6; O2SAT 98–99
--- NOTE | ~2020-03-20 | CT_ITS ---
EXAMINATION: CTA chest PE protocol DATE: 03/20/2020 14:24 INDICATION: Coughs TECHNIQUE: Computed tomography angiography (CTA) of the chest was performed with 100 mL Omnipaque-350 intravenous contrast timed to evaluate the pulmonary arteries. Coronal maximum intensity projection 3D-reconstructions were created by the technologist. The dose-length product (DLP) was 708.24 mGy-cm. Automated exposure control and iterative reconstruction technique were employed. COMPARISON: None. FINDINGS: The pulmonary arteries are well-opacified. No pulmonary embolism is identified. There are a few clusters of tree-in-bud nodules in the right middle and lower lobes. There is no pleural effusio n or pneumothorax. No pathologically enlarged thoracic lymph nodes are identified. The heart size is normal. Calcified coronary artery atherosclerosis is noted. The gallbladder is surgically absent. The re is a 3.3 cm cyst of the left kidney. There is moderate thoracic spondylosis. IMPRESSION: 1. No pulmonary embolism. 2. Tree-in-bud opacities of the right middle and lower lobes, consistent with infection/inflammation. Reviewed, dictated and finalized at location A. NOLOGY INTERN IMPRESSION: 1. No pulmonary embolism. 2. Tree-in-bud opacities of the right middle and lower lobes, consistent with i nfection/inflammation.
--- NOTE | ~2020-03-20 | CT_ITS ---
EXAMINATION: CT brain wo con DATE: 03/20/2020 12:43 INDICATION: Dizziness. Loss of coordination. TECHNIQUE: Computed tomography (CT) of the head was performed without intravenous contrast. Sagittal and coronal reconstructions were performed. The mA was adjusted according to patient size. Iterative reconstruction technique was employed. The dose-length product was 681.00 mGy-cm. COMPARISON: head CT dated 09/27/2019 FINDINGS: No acute intracranial hemorrhage, acute infarction or abnormal extra axial fluid collection. There is minimal scattered white matter hypoattenuation consistent with chronic small vessel ischemic disease . Ventricles are normal and symmetric. No mass/mass effect. Mild mucoperiosteal thickening the bilate ral ethmoid sinuses. The orbits, paranasal sinuses and mastoid air cells are normal. Intracranial mahesh cified cerebral atherosclerosis is noted. IMPRESSION: 1. Normal aging brain. No acute intracranial process. Reviewed, dictated and finalized at location A. [employer]SEMBLER
--- NOTE | ~2020-03-20 | XR_ITS ---
EXAMINATION: XR chest 2V DATE: 03/20/2020 12:43 INDICATION: Cough TECHNIQUE: PA and lateral views of the chest were obtained. COMPARISON: Chest radiograph dated 09/27/2019 FINDINGS: The lungs remain clear with no focal airspace opacities, pulmonary edema, pleural effusion or pneumot horax. The cardiomediastinal silhouette is normal. Coronary artery stenting. Cholecystectomy clips in the right upper quadrant. Mild thoracic spondylosis. IMPRESSION: 1. No acute cardiopulmonary disease. Reviewed, dictated and finalized at location A. ANGER
--- NOTE | 2020-03-20 12:17 | ECG_ITS ---
Measurements Intervals [place] Rate: 79 P: 55 [place]: 189 QRS: 70 QRSD: 138 T: 26 QT: 371 QTc: 428 Interpretive Statements SINUS RHYTHM RIGHT BUNDLE BRANCH BLOCK BASELINE ARTIFACT- I, II, III ABNORMAL ECG Electronically Signed On 03-21-2020 7:12:41 SCIENTIFIC ARTIST by Jim Ruiz D.O.
[2020-03-20] MEDS: SODIUM CHLORIDE 0.9% IV 1,000 ML 999 ML IV CONT (12:45)
[2020-03-20 12:52] LABS: Basophils Absolute Auto 0.04 K/mm3 (0.00-0.10); Basophils Percent Auto 0.5 % (0.0-1.0); Eosinophils Absolute Auto 0.17 K/mm3 (0.02-0.50); Eosinophils Percent Auto 2.3 % (1.0-6.0); Hematocrit 36.6 % (37.0-46.0); Hemoglobin 12.6 g/dL (12.4-15.3); Immature Granulocyte Absolute 0.03 K/mm3 (0.00-0.00); Immature Granulocyte Percent A 0.4 % (0.0-0.0); Lymphocytes Percent Auto 28.4 % (18.0-42.0); Mean Corpuscular HGB Conc 34.4 g/dL (32.0-36.0); Mean Corpuscular Volume 92.9 fL (78.0-102.0); Mean Platelet Volume 8.3 fl (8.7-11.0); Monocytes Absolute Auto 0.73 K/mm3 (0.10-0.90); Monocytes Percent Auto 9.9 % (2.0-11.0); Neutrophils Absolute Auto 4.3 K/mm3 (1.7-7.2); Neutrophils Percent Auto 58.5 % (50.0-70.0); Platelet Count Result 368 K/mm3 (150-420); Red Blood Count 3.94 M/mm3 (4.70-6.10); Red Cell Distribution Width 13.7 % (11.6-14.4); White Blood Count 7.4 K/mm3 (4.8-10.8)
[2020-03-20 13:05] LABS: INR 0.9; Partial Thromboplastin Time 24.3 SEC (23.90-30.70); Prothrombin Time 10.1 Seconds (9.50-12.10)
[2020-03-20 13:08] LABS: Alanine Aminotransferase 24 U/L (16-63); Albumin Level 4.6 g/dL (3.4-5.0); Alkaline Phosphatase 73 U/L (46-116); Anion Gap 9 mmol/L (8-16); Aspartate Amino Transferase 12 U/L (15-37); Bilirubin,Total 0.3 mg/dL (0.00-1.00); Blood Urea Nitrogen 12 mg/dL (7-18); Calcium 9.2 mg/dL (8.5-10.1); Carbon Dioxide 28 mmol/L (21-32); Chloride 94 mmol/L (98-108); Estimated CRCL calculation 54 ml/min; Estimated Glomerular Filt Rate > 60; Glucose 129 mg/dL (70-99); Lipase 88 U/L (73-393); Osmolality Calculated 273 mOsm/kg (285-295); Potassium 4.3 mmol/L (3.5-5.1); Sodium 131 mmol/L (136-145); Total Protein 7.8 g/dL (6.4-8.2); Troponin I 4.6 ng/L (0.00-60.4)
[2020-03-20 13:11] LABS: D Dimer 0.86 mg/L (0.19-0.50)
[2020-03-20] MEDS: SODIUM CHLORIDE 0.9% IV 1,000 ML 150 ML IV CONT (13:45)
[2020-03-20 13:49] LABS: Add Urine Microscopic? NO; Appearance Urine Clear (Clear); Bilirubin Urine Negative (Negative); Blood Urine Negative (Negative); Color Urine Yellow (Yellow); Glucose Urine UA Negative (Negative); Ketones Urine Negative (Negative); Leukocyte Esterase Ur Negative LEU/UL (Negative); Nitrate Urine Negative (Negative); Protein Urine Negative (Negative); Specific Grav Ur <= 1.005 (1.010-1.020); Urobilinogen Urine 0.2 mg/dL (0.2-1.0); pH Urine 6.5 (5.0-8.0)
--- NOTE | 2020-03-20 13:51 | ED.WEAKNESS ---
HPI - Weakness General Chief complaint: Weakness Stated complaint: 65 YO male w/ 2-3 week h.o generalized weakness associated w/ postural dizziness. He states he is on multiple medications and has not been feeling well. Denies chest pain, SOB, N/V, Fever, CHills Related Data Home Medications Medication Instructions Recorded Confirmed aripiprazole 5 mg PO DAILY 09/16/19 03/20/20 atorvastatin 40 mg PO HS 09/16/19 03/20/20 clopidogrel 75 mg PO DAILY 09/16/19 03/20/20 duloxetine 60 mg PO DAILY 09/16/19 03/20/20 famotidine 20 mg PO DAILY 09/16/19 03/20/20 meclizine 25 mg PO PRN 09/16/19 03/20/20 mirtazapine 15 mg PO DAILY 09/16/19 03/20/20 naproxen 500 mg PO PRN 09/16/19 03/20/20 omeprazole 40 mg PO DAILY 09/16/19 03/20/20 quetiapine 400 mg PO HS 09/16/19 03/20/20 tamsulosin 0.4 mg PO DAILY 09/16/19 03/20/20 aspirin 81 mg PO DAILY 09/27/19 03/20/20 folic acid 1 mg PO DAILY 09/27/19 03/20/20 dutasteride 0.5 mg PO DAILY 03/20/20 03/20/20 ferrous sulfate 325 mg PO DAILY 03/20/20 03/20/20 lamotrigine 200 mg PO DAILY 03/20/20 03/20/20 Allergies Allergy/AdvReac Type Severity Reaction Status Date / Time No Known Allergies Allergy Verified 06/01/19 09:13 Review of Systems Review of Systems: All systems reviewed & are unremarkable except as noted in HPI and below Constitutional: Constitutional: Reports weakness ENT: Reports system reviewed and no additional complaints, except as documented Cardiovascular: Cardiovascular: Reports no additional cardiovascular complaints Respiratory: Respiratory: Reports no additional respiratory complaints Gastrointestinal: Gastrointestinal: Reports no additional gastrointestinal complaints Musculoskeletal: Musculoskeletal: Reports no additional musculoskeletal complaints Integumentary/Breasts: Skin/Breast: Reports system reviewed and no additional complaints, except as docu Neurologic: Reports weakness Psychiatric: Psychiatric: Reports no additional psychiatric complaints Endocrine: Endocrine: Reports no additional endocrine complaints Hematologic/Lymphatic: Hematologic/Lymphatic: Reports no additional hematologic/lymphatic complaints Allergic/Immunologic: Allergic/Immunologic: Reports no additional allergic/immunologic complaints [facility] Past Medical History Medical History (Updated 03/20/20 @ 15:14 by Edwin Sanchez MD) CAD (coronary artery disease) GERD (gastroesophageal reflux disease) Hyperlipidemia Hypertension Medical history unknown Surgical History Surgical History No significant past surgical history No significant past surgical history Family History Family History Father Cancer Mother Cancer Social History Social History Smoking packs per day: 0.5 Smoking cigarettes per day: 10.0 Years smoked: 48 Smoking pack-years: 24.00 Smoking status: Current every day smoker Tobacco type: cigarettes Second hand tobacco smoke exposure: No Alcohol intake: former Substance use: never Other substance usage details: No drinking x 1 month per patient report Gender identity (if verbalized by the patient): Male Spiritual care concerns: No Exam Const: General: healthy appearing, no acute distress and alert Orientation/consciousness: patient oriented x3 HENMT: Head: normal to inspection Eyes: Conjunctivae: conjunctivae normal Pupils: Equal, round and reactive pupils present Neck: Neck: no lymphadenopathy Chest: Chest palpation & inspection: normal inspection of the chest Resp: Effort & Inspection: normal respiratory effort, not labored, no retractions, not tachypneic and no use of accessory muscles Auscultation: clear to auscultation bilaterally, no rales, rhonchi right upper and no wheezes Cardio: Rate: regular rate Rhythm: regular rhythm GI: Inspection: non-disten
[2020-03-20 13:56] LABS: Amphetamine Screen Urine Negative (Negative); Barbiturate Screen Urine Negative (Negative); Benzodiazepines Screen Urine Negative (Negative); Cannabinoid Screen Urine Negative (Negative); Cocaine Screen Urine Negative (Negative); Methadone Screen Urine Negative (Negative); Opiate Screen Urine Negative (Negative); Phencyclidine Screen Urine Negative (Negative)
[2020-03-20 14:41] LABS: BNP < 5.0 pg/mL (0-100)
[2020-03-20] MEDS: MECLIZINE HCL 25 MG TABLET PO (15:20)
[2020-03-20] MEDS: levoFLOXacin TAB 500 MG, levoFLOXacin TAB 250 MG 750 MG PO (15:20)
== END 2020-03-20 15:24 | disposition home or self-care (01) ==
PROVIDERS: Emergency Provider Family Medicine; PCP Family Medicine
DX: J20.9 Acute bronchitis, unspecified (principal); H81.10 Benign paroxysmal vertigo, unspecified ear; Z79.899 Other long term (current) drug therapy; I25.10 Atherosclerotic heart disease of native coronary artery without angina pectoris; K21.9 Gastro-esophageal reflux disease without esophagitis; E78.5 Hyperlipidemia, unspecified; I10 Essential (primary) hypertension; F17.200 Nicotine dependence, unspecified, uncomplicated
CPT/HCPCS: 36415; 70450; 71046; 71275; 80053; 80307; 81003; 83690; 83880; 84484; 85025; 85380; 85610; 85730; 93005; 96360; 96361; 99283; 99284; A9270; J7030; Q9965; Q9967

== ENCOUNTER 2020-03-30 13:49 | Emergency (ER) | payer MEDICARE, MEDICAID, SELFPAY ==
--- NOTE | ~2020-03-30 | XR_ITS ---
EXAMINATION: XR knee RT 3V DATE: 03/30/2020 15:31 INDICATION: Right knee injury and anterior tenderness. TECHNIQUE: 3 views of right knee were obtained. COMPARISON: None. FINDINGS: Bone alignment is normal. No fracture. Joint spaces are well maintained. There is no knee j oint effusion. There is anterior knee soft tissue swelling. There is a 4 mm subcutaneous foreign body medial to tibial metaphysis. IMPRESSION: 1. No fracture. 2. 4 mm subcutaneous foreign body medial to tibial metaphysis. Reviewed, dictated and finalized at location [facility]. 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
[2020-03-30 14:30] VITALS: BP 152/97; PULSE 97; RESP 20; TEMP 36.1; O2SAT 95
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
[2020-03-30 15:30] VITALS: BP 149/75; PULSE 91; RESP 15; O2SAT 92
[2020-03-30] MEDS: TETANUS,DIPHTHERIA,AC PERTUSSIS ADULT 0.5 ML (ADACEL) IM (16:14)
[2020-03-30 16:30] VITALS: BP 141/92; PULSE 89; RESP 16; O2SAT 92
--- NOTE | 2020-03-30 16:41 | PC.NURSE ---
KNEE IMMOBILIZER PLACED ON PATIENTS RIGHT KNEE
== END 2020-03-30 16:39 | disposition home or self-care (01) ==
PROVIDERS: Emergency Provider Emergency Medicine; PCP Family Medicine
DX: S80.01XA Contusion of right knee, initial encounter (principal); S83.91XA Sprain of unspecified site of right knee, initial encounter; W19.XXXA Unspecified fall, initial encounter; I25.10 Atherosclerotic heart disease of native coronary artery without angina pectoris; K21.9 Gastro-esophageal reflux disease without esophagitis; E78.5 Hyperlipidemia, unspecified; I10 Essential (primary) hypertension; F17.200 Nicotine dependence, unspecified, uncomplicated
CPT/HCPCS: 73562; 90471; 90715; 99283; L1830

== ENCOUNTER 2020-04-05 15:44 | Emergency (ER) | payer MEDICARE, MEDICAID, SELFPAY ==
--- NOTE | ~2020-04-05 | CT_ITS ---
EXAMINATION: CT knee RT wo con DATE: 04/05/2020 16:59 INDICATION: Right knee pain TECHNIQUE: Computed tomography (CT) of the right knee was performed without intravenous contrast. The dose-length product (DLP) was 720.07 mGy-cm. Automated exposure control and iterative reconstruction technique were employed. COMPARISON: None FINDINGS: Bone alignment is normal. There is no fracture. No joint effusion is identified. There is i nfrapatellar soft tissue swelling of the knee. A mixed lytic and sclerotic lesion of the distal femur has the appearance of an enchondroma. A metallic radiopaque foreign body projects in the soft tissue s medial to the proximal tibia. IMPRESSION: 1. Infrapatellar soft tissue swelling without acute osseous abnormality. Reviewed, dictated and finalized at location A. 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
[2020-04-05 16:00] VITALS: BP 186/91; PULSE 92; RESP 20; TEMP 37.1; O2SAT 97
--- NOTE | 2020-04-05 16:15 | ED.EXTPRO ---
HPI - Extremity Problem General Chief complaint: Extremity Problem,Nontraumatic Stated complaint: knee pain Time Seen by Provider: 04/05/20 16:15 Source: patient Mode of arrival: ambulatory Limitations: no limitations History of Present Illness HPI Narrative: Patient comes in with complaint of right knee pain ongoing for about 2 weeks. He happened to step wrong when he put his right foot in a hole, and then fell on his right knee. He has complained of right knee pain since then. Pain is moderately severe, comes and goes. and is more severe after activity. He describes the pain at his kneecap area. Rest makes the leg feel better. No discoloration or swelling is noted. Onset (ago): week(s) (2) Pain Consistency: intermittent Location: right Severity scale (1-10): 4 Quality: burning and aching Relieving factors: rest Exacerbating factors: weight bearing, walking and exertion Associated symptoms: denies other symptoms Related Data Home Medications Medication Instructions Recorded Confirmed aripiprazole 5 mg PO DAILY 09/16/19 04/05/20 atorvastatin 40 mg PO HS 09/16/19 04/05/20 clopidogrel 75 mg PO DAILY 09/16/19 04/05/20 duloxetine 60 mg PO DAILY 09/16/19 04/05/20 famotidine 20 mg PO DAILY 09/16/19 04/05/20 mirtazapine 15 mg PO DAILY 09/16/19 04/05/20 naproxen 500 mg PO PRN 09/16/19 04/05/20 omeprazole 40 mg PO DAILY 09/16/19 04/05/20 quetiapine 400 mg PO HS 09/16/19 04/05/20 tamsulosin 0.4 mg PO DAILY 09/16/19 04/05/20 aspirin 81 mg PO DAILY 09/27/19 04/05/20 folic acid 1 mg PO DAILY 09/27/19 04/05/20 dutasteride 0.5 mg PO DAILY 03/20/20 04/05/20 ferrous sulfate 325 mg PO DAILY 03/20/20 04/05/20 lamotrigine 200 mg PO DAILY 03/20/20 04/05/20 Allergies Allergy/AdvReac Type Severity Reaction Status Date / Time No Known Allergies Allergy Verified 06/01/19 09:13 Review of Systems Constitutional: Constitutional: Reports no additional constitutional complaints Eyes: Eyes: Reports no additional eye complaints ENT: Reports system reviewed and no additional complaints, except as documented Cardiovascular: Cardiovascular: Reports no additional cardiovascular complaints Respiratory: Respiratory: Reports no additional respiratory complaints Gastrointestinal: Gastrointestinal: Reports no additional gastrointestinal complaints Genitourinary: Genitourinary: Reports no additional male genitourinary complaints Musculoskeletal: Musculoskeletal: Reports no additional musculoskeletal complaints Integumentary/Breasts: Skin/Breast: Reports system reviewed and no additional complaints, except as docu Neurologic: Reports system reviewed and no additional complaints, except as documented Psychiatric: Psychiatric: Reports no additional psychiatric complaints Endocrine: Endocrine: Reports no additional endocrine complaints Hematologic/Lymphatic: Hematologic/Lymphatic: Reports no additional hematologic/lymphatic complaints Allergic/Immunologic: Allergic/Immunologic: Reports no additional allergic/immunologic complaints [facility] Past Medical History Medical History CAD (coronary artery disease) GERD (gastroesophageal reflux disease) Hyperlipidemia Hypertension Medical history unknown Surgical History Surgical History No significant past surgical history No significant past surgical history Family History Family History Father Cancer Mother Cancer Social History Social History Smoking packs per day: 0.5 Smoking cigarettes per day: 10.0 Years smoked: 48 Smoking pack-years: 24.00 Smoking status: Current every day smoker Tobacco type: cigarettes Second hand tobacco smoke exposure: No Alcohol intake: former Substance use: never Other substance usage details: No drinking x 1 month per patient report Gender
[2020-04-05] MEDS: DEXAMETHASONE SOD PHOS INJ 4 MG/ML VIAL 10 MG IM (16:22)
[2020-04-05] MEDS: KETOROLAC (*BKC) 60 MG/2 ML VIAL IM (16:23)
[2020-04-05 17:31] VITALS: RESP 18
== END 2020-04-05 17:31 | disposition home or self-care (01) ==
PROVIDERS: Emergency Provider Emergency Medicine; PCP Family Medicine
DX: M25.561 Pain in right knee (principal)
CPT/HCPCS: 73700; 96372; 99283; 99284; J1100; J1885

== ENCOUNTER 2020-06-15 10:12 | Outpatient (CLI) | payer MEDICARE, SELFPAY ==
[2020-06-15 10:39] LABS: Basophils Absolute Auto 0.04 K/mm3 (0.00-0.10); Basophils Percent Auto 0.7 % (0.0-1.0); Eosinophils Absolute Auto 0.26 K/mm3 (0.02-0.50); Eosinophils Percent Auto 4.6 % (1.0-6.0); Hematocrit 38.1 % (37.0-46.0); Hemoglobin 13.2 g/dL (12.4-15.3); Immature Granulocyte Absolute 0.02 K/mm3 (0.00-0.00); Immature Granulocyte Percent A 0.4 % (0.0-0.0); Lymphocytes Absolute Auto 2.14 K/mm3 (1.10-4.50); Lymphocytes Percent Auto 37.7 % (18.0-42.0); Mean Corpuscular HGB Conc 34.6 g/dL (32.0-36.0); Mean Corpuscular Volume 89.4 fL (78.0-102.0); Mean Platelet Volume 8.2 fl (8.7-11.0); Monocytes Absolute Auto 0.58 K/mm3 (0.10-0.90); Monocytes Percent Auto 10.2 % (2.0-11.0); Neutrophils Absolute Auto 2.6 K/mm3 (1.7-7.2); Neutrophils Percent Auto 46.4 % (50.0-70.0); Platelet Count Result 320 K/mm3 (150-420); Red Blood Count 4.26 M/mm3 (4.70-6.10); Red Cell Distribution Width 12.7 % (11.6-14.4); White Blood Count 5.7 K/mm3 (4.8-10.8)
[2020-06-15 11:07] LABS: BNP 5.5 pg/mL (0-100)
[2020-06-15 11:09] LABS: Alanine Aminotransferase 28 U/L (16-63); Albumin Level 4.1 g/dL (3.4-5.0); Alkaline Phosphatase 69 U/L (46-116); Anion Gap 9 mmol/L (8-16); Aspartate Amino Transferase 18 U/L (15-37); Bilirubin,Total 0.4 mg/dL (0.00-1.00); Blood Urea Nitrogen 3 mg/dL (7-18); Calcium 8.5 mg/dL (8.5-10.1); Carbon Dioxide 29 mmol/L (21-32); Chloride 95 mmol/L (98-108); D Dimer 0.48 mg/L (0.19-0.50); Estimated Glomerular Filt Rate > 60; Glucose 110 mg/dL (70-99); Osmolality Calculated 273 mOsm/kg (285-295); Potassium 3.7 mmol/L (3.5-5.1); Sodium 133 mmol/L (136-145)
[2020-06-15 11:38] LABS: Thyroid Stimulating Hormone Reflex 0.81 u/IU/mL (0.36-3.74)
== END 2020-06-15 10:13 | disposition home or self-care (01) ==
PROVIDERS: PCP Family Medicine; Visit Provider Nurse Practitioner
DX: R06.02 Shortness of breath (principal); F43.23 Adjustment disorder with mixed anxiety and depressed mood; F41.9 Anxiety disorder, unspecified
CPT/HCPCS: 36415; 80053; 83880; 84443; 85025; 85380

== ENCOUNTER 2020-06-27 19:24 | Emergency (ER) | payer MEDICARE, MEDICAID, SELFPAY ==
--- NOTE | ~2020-06-27 | CT_ITS ---
EXAMINATION: CTA chest PE protocol DATE: 06/27/2020 20:58 INDICATION: Chest pain, chest tightness, cough, shortness of breath for 3 days. Elevated D-dimer. TECHNIQUE: Computed tomography angiography (CTA) of the chest was performed with 100 mL Omnipaque-350 intravenous contrast timed to evaluate the pulmonary arteries. Coronal maximum intensity projection 3D-reconstructions were created by the technologist. Automated exposure control and iterative reconst ruction technique were employed. Exam dose: 957.76 mGy-cm total exam DLP. COMPARISON: 03/20/2020 CT pulmonary scan FINDINGS: The pulmonary arteries are moderately opacified, without evidence of pulmonary embolism. No thoracic aortic aneurysm or dissection. Normal heart size. Coronary artery calcifications. No hilar or mediastinal mass lesion or lymphadenopathy. No pulmonary infiltrate or consolidation or suspicious pulmonary mass lesion is evident. Normal morphology of the adrenal glands. 3.2 cm upper pole left renal cyst. Status post cholecystectomy. No suspicious osteolytic or osteoblastic lesions. IMPRESSION: No evidence of pulmonary embolism Reviewed, dictated and finalized at [facility]. Reviewed, dictated and finalized at location A.
[2020-06-27 19:25] VITALS: BP 130/83; PULSE 106; RESP 20; O2SAT 97
--- NOTE | 2020-06-27 19:29 | ED.CHESTPAIN ---
HPI - Chest Pain General Chief Complaint: Chest Pain Stated Complaint: no energy, chest pain, trouble breathing Source: patient Mode of arrival: ambulatory Limitations: no limitations History of Present Illness HPI narrative: Patient comes in stating he has had moderately severe epigastric pain and points to the epigastric region. This has been ongoing for weeks, and seems to be more severe after he eats, or lays down. He states he has had trouble with reflux before. He has had no complaints of cheat pain. Pertinent past history: coronary artery disease Timing of current episode: episodic Onset: after eating Pain radiation: none Severity: moderate Quality: dull (relief with belching) Risk Factors Coronary artery disease risk factors: smoking history and hyperlipidemia Related Data Home Medications Medication Instructions Recorded Confirmed aripiprazole 5 mg PO DAILY 09/16/19 06/27/20 atorvastatin 40 mg PO HS 09/16/19 06/27/20 clopidogrel 75 mg PO DAILY 09/16/19 06/27/20 duloxetine 60 mg PO DAILY 09/16/19 06/27/20 famotidine 20 mg PO DAILY 09/16/19 06/27/20 mirtazapine 15 mg PO DAILY 09/16/19 06/27/20 naproxen 500 mg PO PRN 09/16/19 06/27/20 omeprazole 40 mg PO DAILY 09/16/19 06/27/20 quetiapine 400 mg PO HS 09/16/19 06/27/20 tamsulosin 0.4 mg PO DAILY 09/16/19 06/27/20 aspirin 81 mg PO DAILY 09/27/19 06/27/20 folic acid 1 mg PO DAILY 09/27/19 06/27/20 dutasteride 0.5 mg PO DAILY 03/20/20 06/27/20 ferrous sulfate 325 mg PO DAILY 03/20/20 06/27/20 lamotrigine 200 mg PO DAILY 03/20/20 06/27/20 Allergies Allergy/AdvReac Type Severity Reaction Status Date / Time No Known Allergies Allergy Verified 05/05/20 09:50 Review of Systems Constitutional: Constitutional: Reports no additional constitutional complaints Eyes: Eyes: Reports no additional eye complaints ENT: Reports system reviewed and no additional complaints, except as documented Cardiovascular: Cardiovascular: Reports no additional cardiovascular complaints Respiratory: Respiratory: Reports no additional respiratory complaints Gastrointestinal: Gastrointestinal: Reports no additional gastrointestinal complaints Genitourinary: Genitourinary: Reports no additional male genitourinary complaints Musculoskeletal: Musculoskeletal: Reports no additional musculoskeletal complaints Integumentary/Breasts: Skin/Breast: Reports system reviewed and no additional complaints, except as docu Neurologic: Reports system reviewed and no additional complaints, except as documented Psychiatric: Psychiatric: Reports no additional psychiatric complaints Endocrine: Endocrine: Reports no additional endocrine complaints Hematologic/Lymphatic: Hematologic/Lymphatic: Reports no additional hematologic/lymphatic complaints Allergic/Immunologic: Allergic/Immunologic: Reports no additional allergic/immunologic complaints PMFSH Past Medical History Medical History CAD (coronary artery disease) GERD (gastroesophageal reflux disease) Hyperlipidemia Hypertension Medical history unknown Surgical History Surgical History (Updated 06/28/20 @ 02:43 by Isai Wynne MD) Stented coronary artery Family History Family History Father Cancer Mother Cancer Social History Social History Smoking packs per day: 0.5 Smoking cigarettes per day: 10.0 Years smoked: 48 Smoking pack-years: 24.00 Smoking status: Current some day smoker Tobacco type: cigarettes Second hand tobacco smoke exposure: No Alcohol intake: former Substance use: never Other substance usage details: No drinking x 1 month per patient report Gender identity (if verbalized by the patient): Male Spiritual care concerns: No Exam Const: General: no acute distress and alert Orientation/consciousness: patient oriented x3 HENMT: Head:
--- NOTE | 2020-06-27 19:30 | ECG_ITS ---
Measurements Intervals [place] Rate: 107 P: 24 [place]: 177 QRS: 63 QRSD: 118 T: 3 QT: 340 QTc: 455 Interpretive Statements SINUS TACHYCARDIA RIGHT BUNDLE BRANCH BLOCK BASELINE ARTIFACT- I, II, III, AVR, AVL, AVF, V1-V5 ABNORMAL ECG Electronically Signed On 06-28-2020 8:08:29 CDT by Jim Ruiz D.O.
[2020-06-27 19:48] LABS: Basophils Absolute Auto 0.05 K/mm3 (0.00-0.10); Basophils Percent Auto 0.6 % (0.0-1.0); Eosinophils Percent Auto 2.4 % (1.0-6.0); Hematocrit 37.4 % (37.0-46.0); Hemoglobin 12.9 g/dL (12.4-15.3); Immature Granulocyte Absolute 0.02 K/mm3 (0.00-0.00); Immature Granulocyte Percent A 0.2 % (0.0-0.0); Lymphocytes Absolute Auto 2.69 K/mm3 (1.10-4.50); Lymphocytes Percent Auto 32.7 % (18.0-42.0); Mean Corpuscular HGB Conc 34.5 g/dL (32.0-36.0); Mean Corpuscular Hemoglobin 31.3 pg (27.0-31.0); Mean Corpuscular Volume 90.8 fL (78.0-102.0); Mean Platelet Volume 8.4 fl (8.7-11.0); Monocytes Absolute Auto 0.74 K/mm3 (0.10-0.90); Neutrophils Absolute Auto 4.5 K/mm3 (1.7-7.2); Neutrophils Percent Auto 55.1 % (50.0-70.0); Platelet Count Result 357 K/mm3 (150-420); Red Blood Count 4.12 M/mm3 (4.70-6.10); Red Cell Distribution Width 13.2 % (11.6-14.4); White Blood Count 8.2 K/mm3 (4.8-10.8)
[2020-06-27 19:59] VITALS: PULSE 106
[2020-06-27] MEDS: ALPRAZolam (*CRX) 0.5 MG TABLET PO (20:00)
[2020-06-27] MEDS: MAG HYDROX/ALUMINUM HYD/SIMETH 30 ML, PHENobarb/HYOSCY/ATROPINE/SCOP 32.4 MG, LIDOCAINE... PO (20:00)
[2020-06-27 20:02] LABS: D Dimer 0.95 mg/L (0.19-0.50)
[2020-06-27 20:04] LABS: BNP 5.8 pg/mL (0-100)
[2020-06-27 20:05] LABS: Alanine Aminotransferase 28 U/L (16-63); Albumin Level 4.3 g/dL (3.4-5.0); Alkaline Phosphatase 68 U/L (46-116); Anion Gap 10 mmol/L (8-16); Aspartate Amino Transferase 14 U/L (15-37); Bilirubin,Total 0.5 mg/dL (0.00-1.00); Blood Urea Nitrogen 6 mg/dL (7-18); Calcium 8.7 mg/dL (8.5-10.1); Carbon Dioxide 26 mmol/L (21-32); Chloride 98 mmol/L (98-108); Estimated CRCL calculation 48 ml/min; Estimated Glomerular Filt Rate 52; Glucose 117 mg/dL (70-99); Osmolality Calculated 276 mOsm/kg (285-295); Potassium 3.9 mmol/L (3.5-5.1); Sodium 134 mmol/L (136-145); Troponin I 6.7 ng/L (0.00-60.4)
[2020-06-27 20:46] LABS: Partial Thromboplastin Time 25.8 SEC (23.90-30.70); Prothrombin Time 10.8 Seconds (9.50-12.10)
--- NOTE | 2020-06-27 22:02 | ECG_ITS ---
Measurements Intervals [place] Rate: 86 P: 38 [place]: 171 QRS: 57 QRSD: 130 T: 12 QT: 386 QTc: 462 Interpretive Statements SINUS RHYTHM RIGHT BUNDLE BRANCH BLOCK BASELINE ARTIFACT- I, II, III, AVF, V2 ABNORMAL ECG Electronically Signed On 06-28-2020 8:09:18 CDT by Jim Ruiz D.O.
[2020-06-27 22:13] VITALS: BP 110/96; PULSE 91; RESP 20; TEMP 36.7; O2SAT 98
== END 2020-06-27 22:14 | disposition home or self-care (01) ==
PROVIDERS: Emergency Provider Emergency Medicine; PCP Family Medicine
DX: K21.9 Gastro-esophageal reflux disease without esophagitis (principal); I25.10 Atherosclerotic heart disease of native coronary artery without angina pectoris; E78.5 Hyperlipidemia, unspecified; I10 Essential (primary) hypertension; F17.200 Nicotine dependence, unspecified, uncomplicated
CPT/HCPCS: 36415; 71275; 80053; 83880; 84484; 85025; 85380; 85610; 85730; 93005; 99283; 99284; A9270; Q9967

== ENCOUNTER 2020-07-18 12:05 | Outpatient (CLI) | payer MEDICARE, MEDICAID, SELFPAY ==
--- NOTE | 2020-07-19 10:39 | WPDPFTINT ---
PFT Interpretation DOS: 07/18/2020 REQUESTING: Kade Arambula MD REASON FOR TESTING: Dyspnea PULMONARY FUNCTION TESTS Results are reliable and reproducible. Spirometry: FEV1 is 87% predicted, 2.73 L. FVC is 95% predicted. The FEV1/FVC is normal. There is no change after bronchodilator. Lung volumes: TLC is normal 105%. Slow VC is 95%, similar to FVC. Residual volume is 118%, upper limit of normal. RV/TLC increased 43, consistent with air trapping. Increased airway resistance. Diffusion: DLCO is 95%, normal. Flow volume loop: Mild coving of the expiratory limb consistent with airflow obstruction. IMPRESSION: There is a mild obstructive ventilatory defect noted with air trapping. Spirometry, total lung capacity, and diffusion are all normal. Lack of response to bronchodilator should not preclude use if clinically indicated. Ct Flowers MD
--- NOTE | 2020-07-19 10:50 | WPDPFTINT ---
PFT Procedure Performed PFT Procedure Performed Spirometry with Pre/Post Bronchodilator Plethysmography (Lung Vol) Diffusing Cap (DLCO) Flow Vol Loop
== END 2020-07-18 12:06 | disposition home or self-care (01) ==
LOC: CHSCARD 12:08
PROVIDERS: PCP Family Medicine; Visit Provider Nurse Practitioner
DX: R06.02 Shortness of breath (principal)
CPT/HCPCS: 94060; 94726; 94729

== ENCOUNTER 2020-09-26 11:20 | Outpatient (CLI) | payer MEDICARE, SELFPAY ==
[2020-09-26 12:42] LABS: Alanine Aminotransferase 26 U/L (16-63); Alkaline Phosphatase 72 U/L (46-116); Anion Gap 13 mmol/L (8-16); Aspartate Amino Transferase 16 U/L (15-37); Bilirubin,Total 0.4 mg/dL (0.00-1.00); Blood Urea Nitrogen 5 mg/dL (7-18); Calcium 8.8 mg/dL (8.5-10.1); Carbon Dioxide 26 mmol/L (21-32); Chloride 95 mmol/L (98-108); Estimated Glomerular Filt Rate > 60; Glucose 115 mg/dL (70-99); Osmolality Calculated 276 mOsm/kg (285-295); Potassium 3.5 mmol/L (3.5-5.1); Sodium 134 mmol/L (136-145); Total Protein 6.4 g/dL (6.4-8.2)
== END 2020-09-26 11:21 | disposition home or self-care (01) ==
LOC: CHSLAB 11:25
PROVIDERS: PCP Family Medicine; Visit Provider Nurse Practitioner
DX: R25.2 Cramp and spasm (principal)
CPT/HCPCS: 36415; 80053

== ENCOUNTER 2020-10-04 22:05 | Emergency (ER) | payer MEDICARE, MEDICAID, SELFPAY ==
--- NOTE | ~2020-10-04 | XR_ITS ---
EXAMINATION: XR chest 1V portable EXAM DATE: 10/04/2020 23:25 INDICATION: weakness TECHNIQUE: Portable AP frontal chest x-ray was obtained. Comparison is made to prior examination from 03/20/2020. FINDINGS: The lungs are clear. There are no pleural effusions. The cardiomediastinal silhouette is within normal limits. There is no pneumothorax suspected. The bones and soft tissues are unremarkab le. IMPRESSION: No acute cardiopulmonary findings. Reviewed, dictated and finalized at location G.
--- NOTE | ~2020-10-04 | CT_ITS ---
EXAMINATION: CT brain wo con EXAM DATE: 10/04/2020 23:24 INDICATION: Lack of coordination. Generalized weakness weakness x 2 months. TECHNIQUE: Spiral CT of the head was performed without contrast. Axial, coronal and sagittal images were reviewed. The dose-length product (DLP) for this examination was 681.00 mGy-cm. The exposure w as tailored according to patient size, and iterative reconstruction (ASIR) was used as additional dos e reduction technique. Comparison is made to prior examination from 03/20/2020. FINDINGS: There is no acute intraparenchymal hemorrhage. No evidence of intraparenchymal brain mass lesion. No evidence of acute infarction. Please note that initial head CT has limited sensitivity f or small or acute infarctions. There is mild periventricular and subcortical hypodensity, nonspecific but probably related to small vessel ischemic disease. There is moderate prominence of the sulci a nd ventricles related to cerebral atrophy. There is intracranial carotid arteriosclerosis. There a re no extra-axial collections. There is no mass effect or midline shift. The orbits are unremarkabl e. Soft tissue is unremarkable. The visualized sinuses and mastoid air cells are well aerated. IMPRESSION: 1. No acute intracranial findings. 2. Chronic age related findings. Reviewed, dictated and finalized at location G.
[2020-10-04 22:15] VITALS: BP 106/78; PULSE 103; RESP 20; TEMP 37.1; O2SAT 100
--- NOTE | 2020-10-04 22:58 | ECG_ITS ---
Measurements Intervals [place] Rate: 86 P: 32 [place]: 187 QRS: 73 QRSD: 137 T: 22 QT: 389 QTc: 467 Interpretive Statements SINUS RHYTHM RIGHT BUNDLE BRANCH BLOCK BASELINE WANDER- I, III, AVR, AVL, AVF, V4 ABNORMAL ECG Electronically Signed On 10-05-2020 6:28:09 CDT by Jim Ruiz D.O.
[2020-10-04] MEDS: SODIUM CHLORIDE 0.9% IV 1,000 ML 999 ML IV CONT (23:04)
[2020-10-04 23:19] LABS: Basophils Absolute Auto 0.06 K/mm3 (0.00-0.10); Basophils Percent Auto 0.6 % (0.0-1.0); Eosinophils Absolute Auto 0.17 K/mm3 (0.02-0.50); Eosinophils Percent Auto 1.8 % (1.0-6.0); Hematocrit 37.5 % (37.0-46.0); Hemoglobin 12.8 g/dL (12.4-15.3); Immature Granulocyte Absolute 0.05 K/mm3 (0.00-0.00); Immature Granulocyte Percent A 0.5 % (0.0-0.0); Lymphocytes Absolute Auto 2.49 K/mm3 (1.10-4.50); Lymphocytes Percent Auto 26.9 % (18.0-42.0); Mean Corpuscular HGB Conc 34.1 g/dL (32.0-36.0); Mean Corpuscular Hemoglobin 31.2 pg (27.0-31.0); Mean Corpuscular Volume 91.5 fL (78.0-102.0); Mean Platelet Volume 8.3 fl (8.7-11.0); Monocytes Absolute Auto 0.95 K/mm3 (0.10-0.90); Monocytes Percent Auto 10.3 % (2.0-11.0); Neutrophils Absolute Auto 5.5 K/mm3 (1.7-7.2); Neutrophils Percent Auto 59.9 % (50.0-70.0); Platelet Count Result 381 K/mm3 (150-420); Red Cell Distribution Width 13.5 % (11.6-14.4); White Blood Count 9.3 K/mm3 (4.8-10.8)
[2020-10-04 23:42] LABS: Alanine Aminotransferase 25 U/L (16-63); Albumin Level 4.1 g/dL (3.4-5.0); Alkaline Phosphatase 66 U/L (46-116); Anion Gap 8 mmol/L (8-16); Aspartate Amino Transferase 14 U/L (15-37); Bilirubin,Total 0.5 mg/dL (0.00-1.00); Blood Urea Nitrogen 9 mg/dL (7-18); Calcium 8.8 mg/dL (8.5-10.1); Carbon Dioxide 27 mmol/L (21-32); Chloride 97 mmol/L (98-108); Estimated CRCL calculation 55 ml/min; Estimated Glomerular Filt Rate > 60; Glucose 92 mg/dL (70-99); Osmolality Calculated 272 mOsm/kg (285-295); Potassium 5.1 mmol/L (3.5-5.1); Sodium 132 mmol/L (136-145); Total Protein 6.7 g/dL (6.4-8.2); Troponin I 4.6 ng/L (0.00-60.4)
[2020-10-04 23:47] LABS: Add Urine Microscopic? NO; Appearance Urine Clear (Clear); Bilirubin Urine Negative (Negative); Blood Urine Negative (Negative); Color Urine Light Yellow (Yellow); Glucose Urine UA Negative (Negative); Ketones Urine Negative (Negative); Leukocyte Esterase Ur Negative (Negative); Nitrate Urine Negative (Negative); Protein Urine Negative (Negative); Specific Grav Ur <= 1.005 (1.010-1.020); Urobilinogen Urine 0.2 mg/dL (0.2-1.0)
--- NOTE | 2020-10-05 00:07 | ED.WEAKNESS ---
HPI - Weakness General Chief complaint: Weakness Stated complaint: AMB Time Seen by Provider: 10/04/20 22:18 Source: patient, EMS and RN notes reviewed Mode of arrival: EMS Limitations: no limitations History of Present Illness HPI Narrative: Pt felt weaker than usual this late PM. no acute injury or fall. no chest pain, SOB or fever MD Complaint: generalized weakness, lack of energy and difficulty walking Onset (ago): hour(s) (1) Duration: intermittent Location: generalized Migration: none Severity: mild Severity scale (1-10): 3 Relieving factors: rest Exacerbating factors: none Associated symptoms: denies other symptoms Related Data Home Medications Medication Instructions Recorded Confirmed aripiprazole 5 mg PO DAILY 09/16/19 10/04/20 atorvastatin 40 mg PO HS 09/16/19 10/04/20 clopidogrel 75 mg PO DAILY 09/16/19 10/04/20 duloxetine 60 mg PO DAILY 09/16/19 10/04/20 famotidine 20 mg PO DAILY 09/16/19 10/04/20 mirtazapine 15 mg PO DAILY 09/16/19 10/04/20 naproxen 500 mg PO PRN 09/16/19 10/04/20 omeprazole 40 mg PO DAILY 09/16/19 10/04/20 quetiapine 400 mg PO HS 09/16/19 10/04/20 tamsulosin 0.4 mg PO DAILY 09/16/19 10/04/20 aspirin 81 mg PO DAILY 09/27/19 10/04/20 folic acid 1 mg PO DAILY 09/27/19 10/04/20 dutasteride 0.5 mg PO DAILY 03/20/20 10/04/20 ferrous sulfate 325 mg PO DAILY 03/20/20 10/04/20 lamotrigine 200 mg PO DAILY 03/20/20 10/04/20 Allergies Allergy/AdvReac Type Severity Reaction Status Date / Time No Known Allergies Allergy Verified 05/05/20 09:50 Review of Systems Review of Systems: All systems reviewed & are unremarkable except as noted in HPI and below Constitutional: Constitutional: Reports as per HPI and Reports no additional constitutional complaints Eyes: Eyes: Reports as per HPI and Reports no additional eye complaints ENT: Reports system reviewed and no additional complaints, except as documented and Reports as per HPI Cardiovascular: Cardiovascular: Reports as per HPI and Reports no additional cardiovascular complaints Respiratory: Respiratory: Reports as per HPI and Reports no additional respiratory complaints Gastrointestinal: Gastrointestinal: Reports as per HPI and Reports no additional gastrointestinal complaints Genitourinary: Genitourinary: Reports no additional male genitourinary complaints and Reports as per HPI Musculoskeletal: Musculoskeletal: Reports as per HPI Integumentary/Breasts: Skin/Breast: Reports system reviewed and no additional complaints, except as docu and Reports as per HPI Neurologic: Reports system reviewed and no additional complaints, except as documented, Reports as per HPI and Reports weakness Psychiatric: Psychiatric: Reports no additional psychiatric complaints and Reports as per HPI Endocrine: Endocrine: Reports no additional endocrine complaints and Reports as per HPI Hematologic/Lymphatic: Hematologic/Lymphatic: Reports no additional hematologic/lymphatic complaints and Reports as per HPI Allergic/Immunologic: Allergic/Immunologic: Reports no additional allergic/immunologic complaints and Reports as per HPI PMFSH Past Medical History Medical History CAD (coronary artery disease) GERD (gastroesophageal reflux disease) Hyperlipidemia Hypertension Medical history unknown Surgical History Surgical History Stented coronary artery Family History Family History Father Cancer Mother Cancer Social History Social History Smoking packs per day: 0.5 Smoking cigarettes per day: 10.0 Years smoked: 48 Smoking pack-years: 24.00 Smoking status: Current some day smoker Tobacco type: cigarettes Second hand tobacco smoke exposure: No Alcohol intake: former Alcohol use details: denies alcohol use Substa
[2020-10-05 00:13] VITALS: BP 135/88; PULSE 81; RESP 20; O2SAT 98
== END 2020-10-05 00:48 | disposition home or self-care (01) ==
PROVIDERS: Emergency Provider Emergency Medicine; PCP Family Medicine
DX: R53.1 Weakness (principal); I25.10 Atherosclerotic heart disease of native coronary artery without angina pectoris; E78.5 Hyperlipidemia, unspecified; I10 Essential (primary) hypertension; F17.200 Nicotine dependence, unspecified, uncomplicated
CPT/HCPCS: 36415; 70450; 71045; 80053; 81003; 84484; 85025; 93005; 96360; 99283; 99284; J7030

== ENCOUNTER 2020-12-27 20:21 | Observation (INO) | payer MEDICARE, MEDICAID, SELFPAY ==
--- NOTE | ~2020-12-27 | XR_ITS ---
EXAMINATION: XR chest 2V DATE: 12/27/2020 23:07 INDICATION: Chest pain. Dyspnea. TECHNIQUE: Frontal and lateral views of the chest were obtained on 3 radiographs. COMPARISON: Chest single view 10/04/2020, chest CT 06/27/2020 FINDINGS: The chest demonstrates clear lungs without pneumonia, pleural effusion, or pneumothorax. Th e heart size is normal. Surgical clips in the right upper quadrant are likely from cholecystectomy. IMPRESSION: 1. No acute cardiopulmonary disease. Reviewed, dictated and finalized at location A.
--- NOTE | 2020-12-27 20:27 | ECG_ITS ---
Measurements Intervals [place] Rate: 103 P: 29 [place]: 171 QRS: 69 QRSD: 133 T: 19 QT: 348 QTc: 457 Interpretive Statements SINUS TACHYCARDIA RIGHT BUNDLE BRANCH BLOCK ABNORMAL ECG Electronically Signed On 12-28-2020 7:14:44 CDT by Jim Ruiz D.O.
--- NOTE | 2020-12-27 20:28 | ED.CHESTPAIN ---
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) Onset (ago): hour(s) (1.5) Timing of current episode: constant Prior episodes: Yes Onset: during rest Pain location: left chest Pain radiation: left arm (Tingling) Severity: moderate Quality: sharp Relieving factors: nothing Exacerbating factors: nothing Associated symptoms: nausea, dyspnea and other (Weakness) Treatment prior to arrival: none Risk Factors Coronary artery disease risk factors: smoking history, hyperlipidemia and hypertension Related Data Home Medications Medication Instructions Recorded Confirmed aripiprazole 5 mg PO DAILY 09/16/19 12/27/20 atorvastatin 40 mg PO HS 09/16/19 12/27/20 clopidogrel 75 mg PO DAILY 09/16/19 12/27/20 duloxetine 60 mg PO DAILY 09/16/19 12/27/20 famotidine 20 mg PO DAILY 09/16/19 12/27/20 mirtazapine 15 mg PO DAILY 09/16/19 12/27/20 naproxen 500 mg PO PRN 09/16/19 12/27/20 omeprazole 40 mg PO DAILY 09/16/19 12/27/20 quetiapine 400 mg PO HS 09/16/19 12/27/20 tamsulosin 0.4 mg PO DAILY 09/16/19 12/27/20 aspirin 81 mg PO DAILY 09/27/19 12/27/20 folic acid 1 mg PO DAILY 09/27/19 12/27/20 dutasteride 0.5 mg PO DAILY 03/20/20 12/27/20 ferrous sulfate 325 mg PO DAILY 03/20/20 12/27/20 lamotrigine 200 mg PO DAILY 03/20/20 12/27/20 Allergies Allergy/AdvReac Type Severity Reaction Status Date / Time No Known Allergies Allergy Verified 05/05/20 09:50 Review of Systems Review of Systems: All systems reviewed & are unremarkable except as noted in HPI and below Constitutional: Constitutional: Denies chills, Denies fever(s) and Reports weakness Eyes: Eyes: Denies change in vision and Denies photophobia ENT: Denies nasal congestion and Denies sore throat Cardiovascular: Cardiovascular: Reports chest pain, Denies rapid heart rate and Reports radiating jaw, neck or arm pain Respiratory: Respiratory: Denies cough, Reports dyspnea and Denies wheezing Gastrointestinal: Gastrointestinal: Denies abdominal pain, Denies diarrhea, Reports nausea and Denies vomiting Genitourinary: Genitourinary: Denies dysuria and Denies urinary frequency Musculoskeletal: Musculoskeletal: Denies back pain, Denies arthralgias and Denies joint swelling Integumentary/Breasts: Skin/Breast: Denies pruritus, Denies erythema and Denies rash Neurologic: Denies vertigo, Denies dizziness, Denies syncope, Denies focal weakness and Denies numbness Hematologic/Lymphatic: Hematologic/Lymphatic: Denies easy bleeding and Denies easy bruising Allergic/Immunologic: Allergic/Immunologic: Denies lip swelling and Denies tongue swelling PMFSH Past Medical History Medical History CAD (coronary artery disease) GERD (gastroesophageal reflux disease) Hyperlipidemia Hypertension Medical history unknown Surgical History Surgical History Stented coronary artery Family History Family History Father Cancer Mother Cancer Social History Social History Smoking packs per day: 0.5 Smoking cigarettes per day: 10.0 Years smoked: 48 Smoking pack-years: 24.00 Smoking status: Current some day smoker Tobacco type: cigarettes Second hand tobacco smoke exposure: No Alcohol intake: former Alcohol use details: denies alcohol use Substance use: never Other substance usage details: No drinking x 1 month per patient report Gender identity (if verbalized by the patient): Male Spiritual care concerns: No Exam Const: General: alert and ill appearing chronically Other:
[2020-12-27 20:40] VITALS: BP 141/93; PULSE 105; RESP 20; TEMP 37.3; O2SAT 97
[2020-12-27 20:47] LABS: Basophils Absolute Auto 0.05 K/mm3 (0.00-0.10); Basophils Percent Auto 0.6 % (0.0-1.0); Eosinophils Absolute Auto 0.19 K/mm3 (0.02-0.50); Eosinophils Percent Auto 2.2 % (1.0-6.0); Hematocrit 32.1 % (37.0-46.0); Hemoglobin 11.1 g/dL (12.4-15.3); Immature Granulocyte Absolute 0.06 K/mm3 (0.00-0.00); Immature Granulocyte Percent A 0.7 % (0.0-0.0); Lymphocytes Absolute Auto 1.42 K/mm3 (1.10-4.50); Lymphocytes Percent Auto 16.3 % (18.0-42.0); Mean Corpuscular HGB Conc 34.6 g/dL (32.0-36.0); Mean Corpuscular Volume 89.7 fL (78.0-102.0); Mean Platelet Volume 7.8 fl (8.7-11.0); Monocytes Absolute Auto 0.74 K/mm3 (0.10-0.90); Monocytes Percent Auto 8.5 % (2.0-11.0); Neutrophils Absolute Auto 6.2 K/mm3 (1.7-7.2); Neutrophils Percent Auto 71.7 % (50.0-70.0); Platelet Count Result 399 K/mm3 (150-420); Red Blood Count 3.58 M/mm3 (4.70-6.10); Red Cell Distribution Width 13.2 % (11.6-14.4); White Blood Count 8.7 K/mm3 (4.8-10.8)
[2020-12-27] MEDS: ONDANSETRON INJ 4 MG/2 ML VIAL IV PUSH (20:50)
[2020-12-27] MEDS: ASPIRIN 81 MG CHEWABLE TABLET 324 MG PO (20:50)
[2020-12-27 20:56] VITALS: BP 135/84; PULSE 102
[2020-12-27] MEDS: NITROGLYCERIN SL 0.4 MG TABLET (20:58)
--- NOTE | 2020-12-27 20:58 | PC.NURSE ---
2058 nitro#1 given b/p 137/87 chest pain 09/24
[2020-12-27 21:00] LABS: Prothrombin Time 10.8 Seconds (9.50-12.10)
--- NOTE | 2020-12-27 21:03 | PC.NURSE ---
pt is a poor historian. pt oriented to self and place. pt unable to state current date, month or year. pt unable to identify current president.
[2020-12-27 21:04] LABS: D Dimer 0.97 mg/L (0.19-0.50)
[2020-12-27 21:06] VITALS: O2SAT 92
[2020-12-27 21:06] LABS: Lactic Acid Reflex 1.7 mmol/L (0.4-2.0)
[2020-12-27 21:10] LABS: Alanine Aminotransferase 29 U/L (16-63); Albumin Level 4.1 g/dL (3.4-5.0); Alkaline Phosphatase 77 U/L (46-116); Anion Gap 11 mmol/L (8-16); Aspartate Amino Transferase 18 U/L (15-37); Bilirubin,Total 0.3 mg/dL (0.00-1.00); Blood Urea Nitrogen 4 mg/dL (7-18); Calcium 8.6 mg/dL (8.5-10.1); Carbon Dioxide 27 mmol/L (21-32); Chloride 94 mmol/L (98-108); Estimated CRCL calculation 57 ml/min; Estimated Glomerular Filt Rate > 60; Glucose 114 mg/dL (70-99); Lipase 61 U/L (73-393); NT Pro B Type Natriuretic Pept 219 pg/mL (0-125); Osmolality Calculated 271 mOsm/kg (285-295); Sodium 132 mmol/L (136-145); Total Protein 7.1 g/dL (6.4-8.2)
[2020-12-27 21:11] LABS: Troponin I 4.7 ng/L (0.00-60.4)
[2020-12-27 21:59] LABS: Ethanol < 3 mg/dL (0-6)
[2020-12-27 22:28] LABS: Add Urine Microscopic? YES; Appearance Urine Clear (Clear); Bilirubin Urine Negative (Negative); Blood Urine Negative (Negative); Color Urine Light Yellow (Yellow); Glucose Urine UA Negative (Negative); Ketones Urine Negative (Negative); Leukocyte Esterase Ur 3+ LEU/UL (Negative); Nitrate Urine Positive (Negative); Protein Urine Negative (Negative); Specific Grav Ur <= 1.005 (1.010-1.020); Urobilinogen Urine 0.2 mg/dL (0.2-1.0)
[2020-12-27 22:36] LABS: Bacteria Urine 3+ /hpf; RBC Urine 0-2 /hpf (0-2); Squamous Epithelial Cell Urine Rare /hpf (Few)
[2020-12-27 22:37] LABS: Amphetamine Screen Urine Negative (Negative); Barbiturate Screen Urine Negative (Negative); Benzodiazepines Screen Urine Negative (Negative); Cannabinoid Screen Urine Negative (Negative); Cocaine Screen Urine Negative (Negative); Methadone Screen Urine Negative (Negative); Opiate Screen Urine Negative (Negative); Phencyclidine Screen Urine Negative (Negative)
[2020-12-27 22:40] LABS: SARS-CoV-2 RNA PCR Negative (Negative)
--- NOTE | 2020-12-27 22:51 | PC.NURSE ---
pt is confused, orientated to self and place only. pt unable to verify home medications at this time. pt states that he gets his medications from [facility] in [place] once a week.
[2020-12-27] MEDS: SODIUM CHLORIDE 0.9% IV 1,000 ML 100 ML IV CONT (23:15)
[2020-12-27 23:24] VITALS: BP 126/91; PULSE 94; RESP 18; TEMP 36.3; O2SAT 95
--- NOTE | 2020-12-27 23:50 | PC.NURSE ---
neuro check, patient alert to self and place, follows commands, legs and arms strength strong, swallow pills whole with no problems. need assist to bathroom, has unsteady gait, patient states he is supposed to walk with a cane or walker at home but it's broke. voids well per urinal.
[2020-12-27 23:53] LABS: Troponin I 5.2 ng/L (0.00-60.4)
[2020-12-28] VITALS: BP 139/78; PULSE 81; RESP 18; TEMP 36.4; O2SAT 98
[2020-12-28 00:35] VITALS: BMI 30.4
[2020-12-28] MEDS: QUEtiapine FUMARATE 100 MG TABLET 400 MG PO (00:39)
[2020-12-28] MEDS: ATORVASTATIN 40 MG TABLET PO (00:40)
[2020-12-28 02:56] LABS: Troponin I 6.5 ng/L (0.00-60.4)
[2020-12-28 04:00] VITALS: BP 144/84; PULSE 92; RESP 18; TEMP 36.3; O2SAT 96
[2020-12-28 05:16] LABS: Basophils Absolute Auto 0.03 K/mm3 (0.00-0.10); Basophils Percent Auto 0.4 % (0.0-1.0); Eosinophils Absolute Auto 0.16 K/mm3 (0.02-0.50); Eosinophils Percent Auto 2.2 % (1.0-6.0); Hematocrit 29.8 % (37.0-46.0); Hemoglobin 10.2 g/dL (12.4-15.3); Immature Granulocyte Absolute 0.03 K/mm3 (0.00-0.00); Immature Granulocyte Percent A 0.4 % (0.0-0.0); Lymphocytes Absolute Auto 1.98 K/mm3 (1.10-4.50); Lymphocytes Percent Auto 27.5 % (18.0-42.0); Mean Corpuscular HGB Conc 34.2 g/dL (32.0-36.0); Mean Corpuscular Hemoglobin 30.8 pg (27.0-31.0); Mean Platelet Volume 7.9 fl (8.7-11.0); Monocytes Absolute Auto 0.58 K/mm3 (0.10-0.90); Monocytes Percent Auto 8.1 % (2.0-11.0); Neutrophils Absolute Auto 4.4 K/mm3 (1.7-7.2); Neutrophils Percent Auto 61.4 % (50.0-70.0); Platelet Count Result 350 K/mm3 (150-420); Red Blood Count 3.31 M/mm3 (4.70-6.10); Red Cell Distribution Width 13.3 % (11.6-14.4); White Blood Count 7.2 K/mm3 (4.8-10.8)
[2020-12-28 05:36] LABS: Alanine Aminotransferase 28 U/L (16-63); Albumin Level 3.4 g/dL (3.4-5.0); Alkaline Phosphatase 69 U/L (46-116); Anion Gap 8 mmol/L (8-16); Aspartate Amino Transferase 13 U/L (15-37); Bilirubin,Total 0.3 mg/dL (0.00-1.00); Blood Urea Nitrogen 4 mg/dL (7-18); Calcium 8.5 mg/dL (8.5-10.1); Carbon Dioxide 28 mmol/L (21-32); Chloride 101 mmol/L (98-108); Estimated CRCL calculation 74 ml/min; Estimated Glomerular Filt Rate > 60; Glucose 98 mg/dL (70-99); Osmolality Calculated 280 mOsm/kg (285-295); Potassium 3.9 mmol/L (3.5-5.1); Sodium 137 mmol/L (136-145); Total Protein 6.1 g/dL (6.4-8.2); Troponin I 6.5 ng/L (0.00-60.4)
--- NOTE | 2020-12-28 06:13 | ADMGEN ---
Addendum entered by Maine Ramos RN 12/28/20 06:17: patient was admitted on 12/27/20 around 2330. Original Note: This patient, Omero Spangler, was admitted to 2nd Floor Room 207-2. Patient/family oriented to hospital policies and general routines including ID bracelet, bed and alarms, visiting hours, pain management, procedures, bathroom and other care routines, personal items, smoking policy, room service/diet, and visiting hours. Information on how to activate the Rapid Response Team has been discussed. Patient is alert x 2 confused of date and time, patient cooperative and following commands, no apparent distress noted, see admission and vital signs. ivf's infusing well, Patient/Family are encouraged to report perceived risks to care and to ask questions if they do not understand what they are told or what they should do.
[2020-12-28 07:37] VITALS: BP 148/87; PULSE 100; PULSE 96; RESP 20; TEMP 36.7
--- NOTE | 2020-12-28 08:38 | PC.NURSE ---
Patient up in chair for breakfast consuming 100% with no c/o pain or discomfort.
[2020-12-28 08:44] VITALS: PULSE 96
[2020-12-28] MEDS: METOPROLOL TARTRATE 12.5 MG TABLET PO (08:44)
[2020-12-28] MEDS: ARIPiprazole 5 MG TABLET PO (08:44)
[2020-12-28] MEDS: DUTASTERIDE 0.5 MG CAPSULE PO (08:45)
[2020-12-28] MEDS: MIRTAZAPINE 15 MG TABLET PO (08:45)
[2020-12-28] MEDS: FOLIC ACID 1 MG TABLET PO (08:45)
[2020-12-28] MEDS: lamoTRIgine 100 MG TABLET 200 MG PO (08:45)
[2020-12-28] MEDS: ASPIRIN 81 MG ENTERIC TABLET PO (08:46)
[2020-12-28] MEDS: DULoxetine HCL 30 MG CAPSULE.DR 60 MG PO (08:46)
[2020-12-28] MEDS: CLOPIDOGREL BISULFATE 75 MG TABLET PO (08:46)
[2020-12-28] MEDS: TAMSULOSIN HCL 0.4 MG CAPSULE PO (08:46)
[2020-12-28] MEDS: PANTOPRAZOLE 40 MG TABLET PO (08:46)
[2020-12-28] MEDS: FERROUS SULFATE 324 MG TABLET PO (08:46)
[2020-12-28] MEDS: SODIUM CHLORIDE 0.9% IV 1,000 ML 100 ML IV CONT (09:01)
[2020-12-28 12:00] VITALS: BP 151/89; PULSE 86; PULSE 88; RESP 20; TEMP 36.4; O2SAT 99
[2020-12-28 12:10] LABS: Occult Blood Negative (Negative)
--- NOTE | 2020-12-28 12:18 | PC.NURSE ---
Rocephin IV ABT given early d/t discharging home. Patient up in chair for lunch. Occult stool collected w/negative results.
--- NOTE | 2020-12-28 13:03 | PM.SD2 ---
Same Day Admit/Disch: HPI History of Present Illness Chief complaint: UTI CP CONFUSION Narrative: Omero Spangler is a 65 year old male admitted under Observation to r/o NM while treating his UTI and monitoring his mental status for improvement. Pt came to the hospital for chest pain. He states his pain is gone as of this AM. He denies flank pain, lower abdominal pain, burning with urination. He does admit to difficulty starting a stream and that once in a while his urine is darker in color. Pt admits that he is not the smartest person and that he takes care of what he needs to take care of and pretty much avoids people. He uses the bus to get to his PCP appointments and his medications are mailed to him. Pt has no other complaints or concerns at this time. [facility] Past Medical History Medical History CAD (coronary artery disease) GERD (gastroesophageal reflux disease) Hyperlipidemia Hypertension Medical history unknown Surgical History Surgical History Stented coronary artery Family History Family History Father Cancer Mother Cancer Social History Social History Smoking packs per day: 3 Smoking cigarettes per day: 60.0 Years smoked: 48 Smoking pack-years: 144.00 Smoking status: Current every day smoker Tobacco type: cigarettes Second hand tobacco smoke exposure: Yes Alcohol intake: former Alcohol use details: denies alcohol use Substance use: former Other substance usage details: No drinking x 1 month per patient report Gender identity (if verbalized by the patient): Male Spiritual care concerns: No Same Day Admit/Disch: Med Pre-admit Medications Home Medications Medication Instructions Recorded Confirmed Type aripiprazole 5 mg PO DAILY 09/16/19 12/27/20 History atorvastatin 40 mg PO HS 09/16/19 12/27/20 History clopidogrel 75 mg PO DAILY 09/16/19 12/27/20 History duloxetine 60 mg PO DAILY 09/16/19 12/27/20 History famotidine 20 mg PO DAILY 09/16/19 12/27/20 History mirtazapine 15 mg PO DAILY 09/16/19 12/27/20 History naproxen 500 mg PO PRN 09/16/19 12/27/20 History omeprazole 40 mg PO DAILY 09/16/19 12/27/20 History quetiapine 400 mg PO HS 09/16/19 12/27/20 History tamsulosin 0.4 mg PO DAILY 09/16/19 12/27/20 History metoprolol tartrate 12.5 mg PO DAILY #30 tablet 09/17/19 12/27/20 Rx midodrine 10 mg PO TID #180 tablet 09/17/19 12/27/20 Rx aspirin 81 mg PO DAILY 09/27/19 12/27/20 History folic acid 1 mg PO DAILY 09/27/19 12/27/20 History dutasteride 0.5 mg PO DAILY 03/20/20 12/27/20 History ferrous sulfate 325 mg PO DAILY 03/20/20 12/27/20 History lamotrigine 200 mg PO DAILY 03/20/20 12/27/20 History meclizine 25 mg PO TID PRN #30 tablet 03/20/20 12/27/20 Rx dexamethasone 8 mg PO DAILY #8 tablet 04/05/20 12/27/20 Rx cephalexin [Keflex] 750 mg PO Q12H #7 cap 12/28/20 Rx Exam Const: General: cooperative, comfortable, no acute distress, alert, awake and Physically active Nutritional Appearance: overweight Resp: Effort & Inspection: normal respiratory effort Auscultation: rhonchi, wheezes (expiratory wheezing) and other (lung sounds improve with cough. Admits to being a smoker) Cardio: Rate: regular rate Heart sounds: S1 normal heart sound present and S2 normal heart sound present GI: GI Palp: Yes Soft to palpation and No Tenderness to palpation present (GI) Auscultation: Hypoactive bowel sounds present Skin: General skin exam: normal color and dry skin Neuro: General: oriented to person and oriented to place Cranial nerves: Yes CN's II-XII intact bilaterally (grossly intact) Cognition (Neuro): normal cognition (Pt comes across as a simple private person) Speech: normal speech (a little slow) Extrem: General: full ROM and no pedal edema Psych: Appearance:
--- NOTE | 2020-12-28 15:00 | PC.NURSE ---
Patient discharged home transported via public transportation. IV discontinued and removed prior to discharge. All personal belongings bagged and sent with patient. Discharge instructions given and patient acknowledges understanding of instructions. Staff transported patient via WC to main entrance and assisted into public van for transport home.
[2020-12-31 06:47] LABS: Lamotrigine Lamictal 6.7 mcg/mL (4.0-18.0)
--- NOTE | 2021-01-03 11:06 | PC.NURSE ---
Unable to contact for discharge call back.
== END 2020-12-28 15:00 | disposition home or self-care (01) ==
LOC: CHSED 22:48 → CHS2ND 12-28 07:25
PROVIDERS: Nurse Practitioner Family; Admitting Provider Emergency Medicine; Emergency Provider Emergency Medicine; PCP Family Medicine; Visit Provider Emergency Medicine
DX: R07.9 Chest pain, unspecified (principal); N39.0 Urinary tract infection, site not specified; I25.10 Atherosclerotic heart disease of native coronary artery without angina pectoris; I10 Essential (primary) hypertension; R41.0 Disorientation, unspecified; R06.00 Dyspnea, unspecified; E78.5 Hyperlipidemia, unspecified; K21.9 Gastro-esophageal reflux disease without esophagitis; F17.210 Nicotine dependence, cigarettes, uncomplicated; Z20.822 Contact with and (suspected) exposure to COVID-19; Z95.5 Presence of coronary angioplasty implant and graft; Z79.899 Other long term (current) drug therapy
CPT/HCPCS: 36415; 71046; 80053; 80175; 80307; 81001; 83605; 83690; 83880; 84484; 85025; 85380; 85610; 85730; 87040; 87077; 87086; 87088; 87186; 93005; 96361; 96365; 96366; 96374; 96375; 99285; A9270; C9803; G0378; J0696; J2405; J7030; U0003; U0005

== ENCOUNTER 2021-01-31 08:52 | Outpatient (RCR) | payer MEDICARE, MEDICAID, SELFPAY ==
--- NOTE | 2021-01-31 10:02 | PTOPEVAL ---
Thank you for referring Omero Spangler to [facility].? The patient is scheduled to be seen for therapy? ____x/week for ___ weeks. Please review, sign, date and return this plan of care SANJAY. I agree with and certify that the following plan of care is medically necessary. Referring Physician Date Admitting Provider: Attending Provider: Sol Bermudez, AIRBRUSH ARTIST TECHNICAL Referring Provider: *PT Outpatient Evaluation Start: 01/31/21 09:02 Freq: Status: Active Protocol: Document 01/31/21 09:02 [facility] (Rec: 01/31/21 10:02 [facility] [id number]) Therapy Assessment Status Assessment Status Assessment Status Evaluation Outpatient Past Medical History Neurological History Hx Other Neurological Disorders Yes: COGNITIVE IMPAIRMENT Cardiovascular History Hx Coronary Artery Disease Yes Hx Coronary Stent Yes Hx Hypercholesterolemia Yes Hx Hypertension Yes Respiratory History Hx Chronic Obstructive Pulmonary Disease Yes (COPD) Gastrointestinal History Hx Gastroesophageal Reflux Disease Yes Genitourinary History Hx Benign Prostatic Hyperplasia Yes Musculoskeletal History Hx Orthopedic Surgery Yes: right knee Hematological History Hx Anemia Yes Psychosocial History Hx Anxiety Yes Hx Depression Yes Evaluation Information Problem Diagnosis bilateral knee pain Onset 12/01/20 Additional Evaluation Detail LEFS = 51% functionally declined Subjective Information patient reports he is having Query Text:As Reported By Patient/ pain and giving out in the Family knees. he reports this pain and sensation is worse on the L side. he reports he is scared to walk most of the time. he reports he has had a few falls due to his knees giving out on him. he reports he has had no recent xrays of the knees, but reports he did have a CT about 6-7 months ago. he reports he has increased symptoms in the knees with increased walking. he reports he lives by himself . he reports he is retired from working. he reports he gave up working about 10 years ago with difficulty walking and completing his job. he reports sym
== END 2021-01-31 10:18 | disposition home or self-care (01) ==
LOC: CHSPT 08:52
PROVIDERS: PCP Family Medicine; Visit Provider Nurse Practitioner
DX: M25.561 Pain in right knee (principal); M25.562 Pain in left knee
CPT/HCPCS: 97014; 97110; 97161; G0283

== ENCOUNTER 2021-02-13 12:00 | Emergency (ER) | payer MEDICARE, MEDICAID, SELFPAY ==
--- NOTE | ~2021-02-13 | XR_ITS ---
XR chest 1V portable 02/13/2021 12:33 Indication: Dyspnea, shortness of breath and chest discomfort Procedure: AP portable chest Comparison: Comparison to multiple prior studies sequentially, with oldest reviewed study dated 09/26. Findings: Heart size normal. Bibasilar infiltrates may represent atelectasis or developing pneumonia. No pleural effusion, edema or pneumothorax. Impression: 1: Bibasilar infiltrates, atelectasis versus developing pneumonia. Reviewed, dictated and finalized at location B. PACK WORKER Impression: 1: Bibasilar infiltrates, atelectasis versus developing pneumonia.
--- NOTE | ~2021-02-13 | CT_ITS ---
EXAMINATION: CTA chest PE protocol EXAM DATE: 02/13/2021 14:25 INDICATION: Dyspnea elevated D-Dimer. Shortness of breath, dyspnea. Weakness. Near syncope. TECHNIQUE: Spiral CTA of the chest (pulmonary arteries) was performed with 100 cc Omnipaque 350 intr avenous contrast injection. Images were acquired during the pulmonary arterial phase. Coronal maxi mum intensity projection 3D-reconstructions were created by the technologist on dedicated workstation . Axial, coronal and sagittal reformatted images were reviewed. The dose-length product (DLP) for t his examination was 611.32 mGy-cm. The exposure was tailored according to patient size (auto mA exp osure control), and iterative reconstruction (ASIR) was used as additional dose reduction technique. Comparison is made to prior examination from 06/27/2020. FINDINGS: There are no pulmonary emboli in the 1st through 3rd order (central and interlobar) pulmon krystle arteries. There is loss of attenuation in the segmental pulmonary arteries from respiratory motio n, not confidently evaluated. No thoracic aortic dissection. No acute airspace disease. There are n o pleural or pericardial effusions. Tracheobronchial tree is patent. There is no mediastinal, hil ar or axillary lymphadenopathy. There is no pneumothorax. Heart normal in size. No evidence of coronary arterial calcification. Left renal 3 cm cyst. Cholecystectomy clips. There is thoracic spo ndylosis without osteoblastic or osteolytic lesions identified. IMPRESSION: 1. No central pulmonary emboli. Segmental arteries not evaluated. 2. Clear lungs. Reviewed, dictated and finalized at location A. UCT ASSURANCE ENGINEER
[2021-02-13 12:16] VITALS: BP 152/96; PULSE 128; RESP 20; O2SAT 99
[2021-02-13 12:31] LABS: Basophils Absolute Auto 0.04 K/mm3 (0.00-0.10); Basophils Percent Auto 0.4 % (0.0-1.0); Eosinophils Absolute Auto 0.32 K/mm3 (0.02-0.50); Eosinophils Percent Auto 3.5 % (1.0-6.0); Hematocrit 33.4 % (37.0-46.0); Hemoglobin 11.6 g/dL (12.4-15.3); Immature Granulocyte Absolute 0.05 K/mm3 (0.00-0.00); Immature Granulocyte Percent A 0.6 % (0.0-0.0); Lymphocytes Percent Auto 24.4 % (18.0-42.0); Mean Corpuscular HGB Conc 34.7 g/dL (32.0-36.0); Mean Corpuscular Hemoglobin 31.4 pg (27.0-31.0); Mean Corpuscular Volume 90.3 fL (78.0-102.0); Mean Platelet Volume 8.2 fl (8.7-11.0); Monocytes Absolute Auto 0.81 K/mm3 (0.10-0.90); Neutrophils Absolute Auto 5.6 K/mm3 (1.7-7.2); Neutrophils Percent Auto 62.1 % (50.0-70.0); Platelet Count Result 374 K/mm3 (150-420); Red Cell Distribution Width 13.5 % (11.6-14.4)
--- NOTE | 2021-02-13 12:36 | ED.SOB ---
HPI - SOB/Dyspnea General Chief Complaint: Shortness of Breath/Dyspnea Stated Complaint: spitting up blood/SOB Source: patient and RN notes reviewed Mode of arrival: ambulatory Limitations: no limitations History of Present Illness MD elicited complaint: shortness of breath and cough Onset (ago): day(s) (3) Timing: constant and progressively worsening Severity: moderate Exacerbating factors: exertion Relieving factors: rest Associated symptoms: chest pain, cough, nausea/vomiting and lightheadedness Treatment prior to arrival: none Related Data Home oxygen amount: none Home Medications Medication Instructions Recorded Confirmed aripiprazole 5 mg PO DAILY 09/16/19 12/27/20 atorvastatin 40 mg PO HS 09/16/19 12/27/20 clopidogrel 75 mg PO DAILY 09/16/19 12/27/20 duloxetine 60 mg PO DAILY 09/16/19 12/27/20 famotidine 20 mg PO DAILY 09/16/19 12/27/20 mirtazapine 15 mg PO DAILY 09/16/19 12/27/20 naproxen 500 mg PO PRN 09/16/19 12/27/20 omeprazole 40 mg PO DAILY 09/16/19 12/27/20 quetiapine 400 mg PO HS 09/16/19 12/27/20 tamsulosin 0.4 mg PO DAILY 09/16/19 12/27/20 aspirin 81 mg PO DAILY 09/27/19 12/27/20 folic acid 1 mg PO DAILY 09/27/19 12/27/20 dutasteride 0.5 mg PO DAILY 03/20/20 12/27/20 ferrous sulfate 325 mg PO DAILY 03/20/20 12/27/20 lamotrigine 200 mg PO DAILY 03/20/20 12/27/20 Allergies Allergy/AdvReac Type Severity Reaction Status Date / Time No Known Allergies Allergy Verified 02/13/21 12:15 Review of Systems Review of Systems: All systems reviewed & are unremarkable except as noted in HPI and below Constitutional: Constitutional: Denies chills and Denies fever(s) Cardiovascular: Cardiovascular: Reports chest pain, Denies rapid heart rate, Denies radiating jaw, neck or arm pain and Denies slow heart rate Respiratory: Respiratory: Reports cough and Reports dyspnea Gastrointestinal: Gastrointestinal: Denies abdominal pain, Denies diarrhea, Reports nausea and Denies vomiting [facility] Past Medical History Medical History (Updated 02/13/21 @ 15:14 by Isai Zapien MD) Anemia CAD (coronary artery disease) GERD (gastroesophageal reflux disease) Hyperlipidemia Hypertension Postural hypotension Surgical History Surgical History (Updated 02/13/21 @ 15:14 by Isai Zapien MD) History of cholecystectomy Stented coronary artery Family History Family History Father Cancer Mother Cancer Social History Social History Smoking packs per day: 3 Smoking cigarettes per day: 60.0 Years smoked: 48 Smoking pack-years: 144.00 Smoking status: Current every day smoker Tobacco type: cigarettes Second hand tobacco smoke exposure: Yes Alcohol intake: former Alcohol use details: denies alcohol use Substance use: former Other substance usage details: No drinking x 1 month per patient report Gender identity (if verbalized by the patient): Male Spiritual care concerns: No Exam Const: General: cooperative, alert, acute distress mild and respiratory, anxious and ill appearing acutely Nutritional Appearance: obese centrally obese Orientation/consciousness: patient oriented x3 Limitations: no limitations HENMT: Head: normal to inspection Ears: external ears normal General nose exam: Normal external nose present Face and sinus: normal facial exam Mouth: Yes moist mucous membranes Eyes: Conjunctivae: conjunctivae normal Pupils: Equal, round and reactive pupils present EOM: EOMs intact bilaterally Neck: Neck: normal visual inspection and no lymphadenopathy Resp: Effort & Inspection: normal respiratory effort Auscultation: wheezes expiratory wheezes and posterior Cardio: Rate: tachycardic Rhythm: regular rhythm Heart sounds: no murmurs GI: GI Palp: Yes Soft to palpation, No Tenderness to palpation present (GI), No Guarding due to palpation present (GI) and No Rebound tende
[2021-02-13] MEDS: ASPIRIN 81 MG CHEWABLE TABLET 324 MG PO (12:37)
[2021-02-13 12:42] LABS: Prothrombin Time 10.4 Seconds (9.50-12.10)
[2021-02-13 12:49] LABS: CRP < 0.5 mg/dL (0.0-0.9)
--- NOTE | 2021-02-13 12:53 | PC.NURSE ---
Lab called with elevated D-Dimer 0.56. Dr. Zapien notified.
[2021-02-13 12:54] LABS: D Dimer 0.56 mg/L (0.19-0.50)
[2021-02-13 12:55] VITALS: BP 119/68; PULSE 116; RESP 14; O2SAT 94
[2021-02-13 12:56] LABS: Alanine Aminotransferase 32 U/L (16-63); Albumin Level 3.9 g/dL (3.4-5.0); Alkaline Phosphatase 65 U/L (46-116); Anion Gap 13 mmol/L (8-16); Aspartate Amino Transferase 11 U/L (15-37); Bilirubin,Total 0.3 mg/dL (0.00-1.00); Blood Urea Nitrogen 9 mg/dL (7-18); Calcium 9.2 mg/dL (8.5-10.1); Carbon Dioxide 27 mmol/L (21-32); Chloride 92 mmol/L (98-108); Estimated CRCL calculation 52 ml/min; Estimated Glomerular Filt Rate 58; Glucose 112 mg/dL (70-99); NT Pro B Type Natriuretic Pept 35 pg/mL (0-125); Osmolality Calculated 273 mOsm/kg (285-295); Sodium 132 mmol/L (136-145); Total Protein 6.8 g/dL (6.4-8.2)
--- NOTE | 2021-02-13 12:56 | ECG_ITS ---
Measurements Intervals [place] Rate: 125 P: 36 RI: 163 QRS: 80 QRSD: 130 T: 24 QT: 300 QTc: 433 Interpretive Statements SINUS TACHYCARDIA RIGHT BUNDLE BRANCH BLOCK BASELINE WANDER- V2 ABNORMAL ECG Electronically Signed On 02-13-2021 13:29:33 EXHIBITS COORDINATOR by Jim Ruiz D.O.
[2021-02-13 12:57] LABS: Troponin I 7.7 ng/L (0.00-60.4)
[2021-02-13 13:19] LABS: SARS-CoV-2 RNA PCR Negative (Negative)
[2021-02-13] MEDS: IPRATROPIUM 0.5 MG/ALBUTEROL SULFATE 2.5 MG AMPUL.NEB 3 ML INHALATION (14:42)
[2021-02-13 14:43] VITALS: PULSE 117; RESP 18; O2SAT 99
[2021-02-13 14:52] VITALS: PULSE 118; RESP 18; O2SAT 100
[2021-02-13 15:13] VITALS: BP 143/91; PULSE 126; RESP 18; O2SAT 97
[2021-02-13] MEDS: methylPREDNISolone SOD SUCC 125 MG VIAL IV PUSH (15:13)
--- NOTE | 2021-02-13 15:35 | PC.NURSE ---
[facility] called for transport home.
== END 2021-02-13 15:36 | disposition home or self-care (01) ==
PROVIDERS: Emergency Provider Emergency Medicine; PCP Family Medicine
DX: J44.1 Chronic obstructive pulmonary disease with (acute) exacerbation (principal); I25.10 Atherosclerotic heart disease of native coronary artery without angina pectoris; I10 Essential (primary) hypertension; K21.9 Gastro-esophageal reflux disease without esophagitis; E78.5 Hyperlipidemia, unspecified; F17.210 Nicotine dependence, cigarettes, uncomplicated; Z90.49 Acquired absence of other specified parts of digestive tract; Z95.5 Presence of coronary angioplasty implant and graft; Z20.822 Contact with and (suspected) exposure to COVID-19
CPT/HCPCS: 36415; 71045; 71275; 80053; 83880; 84484; 85025; 85380; 85610; 86140; 93005; 94640; 96374; 99283; 99284; A9270; C9803; J2930; Q9967; U0003; U0005

== ENCOUNTER 2021-02-20 14:30 | Emergency (ER) | payer OTHER, SELFPAY ==
--- NOTE | ~2021-02-20 | XR_ITS ---
EXAMINATION: XR knee LT 3V EXAM DATE: 02/20/2021 15:16 INDICATION: Fall, anterior pain and lac. TECHNIQUE: Left knee frontal, crosstable lateral, orthogonal oblique projections for interpretation. There is no prior study for comparison. FINDINGS: No evidence osteochondral defect or joint body in the left knee joint. There are no acute fractures or dislocations identified. There is no subcutaneous gas. There is soft tissue swelling o steph the knee anteriorly. There are no radiopaque foreign bodies. There is mild patellofemoral comp artment primary osteoarthritis. IMPRESSION: 1. Left knee exam without acute osseous findings. Reviewed, dictated and finalized at location A. [employer] APPLICATION ARCHITECT
--- NOTE | 2021-02-20 14:49 | ED.GENADULT ---
HPI - General Adult General Chief complaint: Unspecified Stated complaint: leg pain and hip Time Seen by Provider: 02/20/21 14:49 Source: patient Mode of arrival: ambulatory Limitations: no limitations Related Data Home Medications Medication Instructions Recorded Confirmed aripiprazole 5 mg PO DAILY 09/16/19 02/20/21 atorvastatin 40 mg PO HS 09/16/19 02/20/21 duloxetine 60 mg PO DAILY 09/16/19 02/20/21 famotidine 20 mg PO DAILY 09/16/19 02/20/21 mirtazapine 15 mg PO DAILY 09/16/19 02/20/21 omeprazole 40 mg PO DAILY 09/16/19 02/20/21 quetiapine 400 mg PO HS 09/16/19 02/20/21 tamsulosin 0.4 mg PO DAILY 09/16/19 02/20/21 aspirin 81 mg PO DAILY 09/27/19 02/20/21 folic acid 1 mg PO DAILY 09/27/19 02/20/21 dutasteride 0.5 mg PO DAILY 03/20/20 02/20/21 ferrous sulfate 325 mg PO DAILY 03/20/20 02/20/21 lamotrigine 200 mg PO DAILY 03/20/20 02/20/21 Allergies Allergy/AdvReac Type Severity Reaction Status Date / Time No Known Allergies Allergy Verified 02/13/21 12:15 [facility] Past Medical History Medical History (Updated 02/14/21 @ 00:00 by Jany Middleton) Anemia CAD (coronary artery disease) GERD (gastroesophageal reflux disease) Hyperlipidemia Hypertension Postural hypotension Surgical History Surgical History (Updated 02/13/21 @ 15:14 by Isai Zapien MD) History of cholecystectomy Stented coronary artery Family History Family History Father Cancer Mother Cancer Social History Social History Smoking packs per day: 3 Smoking cigarettes per day: 60.0 Years smoked: 48 Smoking pack-years: 144.00 Smoking status: Current every day smoker Tobacco type: cigarettes Second hand tobacco smoke exposure: Yes Alcohol intake: former Alcohol use details: denies alcohol use Substance use: former Other substance usage details: No drinking x 1 month per patient report Gender identity (if verbalized by the patient): Male Spiritual care concerns: No Discharge Plan Discharge Prescriptions: No Action aspirin 81 mg tablet,delayed release (DR/EC) 81 mg PO DAILY RF: 0 folic acid 1 mg tablet 1 mg PO DAILY RF: 0 lamotrigine 200 mg tablet 200 mg PO DAILY RF: 0 ferrous sulfate 325 mg (65 mg iron) tablet 325 mg PO DAILY RF: 0 dutasteride 0.5 mg capsule 0.5 mg PO DAILY RF: 0 atorvastatin 40 mg tablet 40 mg PO HS RF: 0 quetiapine 200 mg tablet 400 mg PO HS RF: 0 omeprazole 40 mg capsule,delayed release(DR/EC) 40 mg PO DAILY RF: 0 famotidine 20 mg tablet 20 mg PO DAILY RF: 0 tamsulosin 0.4 mg capsule 0.4 mg PO DAILY RF: 0 mirtazapine 15 mg tablet 15 mg PO DAILY RF: 0 aripiprazole 5 mg tablet 5 mg PO DAILY RF: 0 duloxetine 60 mg capsule,delayed release(DR/EC) 60 mg PO DAILY RF: 0 metoprolol tartrate 25 mg tablet 12.5 mg PO DAILY Qty: 30 RF: 0 midodrine 2.5 mg Tablet 10 mg PO TID Qty: 180 RF: 0 dexamethasone 4 mg tablet 8 mg PO DAILY Qty: 8 RF: 0
[2021-02-20 14:58] VITALS: BP 138/88; PULSE 78; RESP 18; TEMP 37.2; O2SAT 98
--- NOTE | 2021-02-20 15:07 | ED.LOWEXIN ---
HPI - Extremity Injury (Lower) General Chief Complaint: Unspecified Stated Complaint: leg pain and hip Time Seen by Provider: 02/20/21 14:49 Source: patient Mode of arrival: ambulatory Limitations: no limitations History of Present Illness HPI Narrative: 66-year-old man with a history of coronary artery disease, hypertension, GERD and dyslipidemia comes in today complaining of pain in his left anterior knee after he fell 2 days ago. He states his knee gave out and fell forward on it causing abrasions to both knees. Today he is complaining of pain in his anterior left knee. He denies numbness or tingling, calf pain or swelling, and weakness. He denies any preceding weakness, chest pain, shortness of breath, palpitations or dizziness. He had a tetanus in March of 2020 when he fell on his right knee. Type of Injury: blunt Place: street/outdoors Severity: moderate Relieving factors: rest Exacerbating factors: weight bearing, movement and palpation Context: fall Associated symptoms: ambulatory Other symptoms: none Related Data Home Medications Medication Instructions Recorded Confirmed aripiprazole 5 mg PO DAILY 09/16/19 02/20/21 atorvastatin 40 mg PO HS 09/16/19 02/20/21 duloxetine 60 mg PO DAILY 09/16/19 02/20/21 famotidine 20 mg PO DAILY 09/16/19 02/20/21 mirtazapine 15 mg PO DAILY 09/16/19 02/20/21 omeprazole 40 mg PO DAILY 09/16/19 02/20/21 quetiapine 400 mg PO HS 09/16/19 02/20/21 tamsulosin 0.4 mg PO DAILY 09/16/19 02/20/21 aspirin 81 mg PO DAILY 09/27/19 02/20/21 folic acid 1 mg PO DAILY 09/27/19 02/20/21 dutasteride 0.5 mg PO DAILY 03/20/20 02/20/21 ferrous sulfate 325 mg PO DAILY 03/20/20 02/20/21 lamotrigine 200 mg PO DAILY 03/20/20 02/20/21 Allergies Allergy/AdvReac Type Severity Reaction Status Date / Time No Known Allergies Allergy Verified 02/13/21 12:15 Review of Systems Review of Systems: All systems reviewed & are unremarkable except as noted in HPI and below Constitutional: Constitutional: Denies chills and Denies fever(s) ENT: Denies nasal congestion and Denies sore throat Cardiovascular: Cardiovascular: Denies chest pain and Denies radiating jaw, neck or arm pain Respiratory: Respiratory: Denies cough and Denies dyspnea Gastrointestinal: Gastrointestinal: Denies nausea and Denies vomiting Musculoskeletal: Musculoskeletal: Denies back pain, Reports arthralgias and Denies joint swelling Integumentary/Breasts: Skin/Breast: Denies pruritus, Denies rash and Denies skin ulcer Neurologic: Denies vertigo, Denies dizziness, Denies syncope, Denies focal weakness and Denies numbness Hematologic/Lymphatic: Hematologic/Lymphatic: Denies easy bleeding and Denies easy bruising Allergic/Immunologic: Allergic/Immunologic: Denies lip swelling and Denies throat swelling PMFSH Past Medical History Medical History Anemia CAD (coronary artery disease) GERD (gastroesophageal reflux disease) Hyperlipidemia Hypertension Postural hypotension Surgical History Surgical History History of cholecystectomy Stented coronary artery Family History Family History Father Cancer Mother Cancer Social History Social History Smoking packs per day: 3 Smoking cigarettes per day: 60.0 Years smoked: 48 Smoking pack-years: 144.00 Smoking status: Current every day smoker Tobacco type: cigarettes Second hand tobacco smoke exposure: Yes Alcohol intake: former Alcohol use details: denies alcohol use Substance use: former Other substance usage details: No drinking x 1 month per patient report Gender identity (if verbalized by the patient): Male Spiritual care concerns: No Exam Const: General: healthy appearing and alert Orientation/consciousness: patient oriented
--- NOTE | 2021-02-20 15:22 | PC.NURSE ---
offered pain med, patient declined
[2021-02-20] MEDS: NEOMYCIN/POLYMYXIN/BACITRACIN OINTMENT PACKET 3 PACKET TOPICAL (15:30)
[2021-02-20 15:48] VITALS: BP 132/89; PULSE 72; RESP 18; TEMP 36.4; O2SAT 99
== END 2021-02-20 15:52 | disposition home or self-care (01) ==
PROVIDERS: Emergency Provider Emergency Medicine; PCP Family Medicine
DX: S80.02XA Contusion of left knee, initial encounter (principal); L03.116 Cellulitis of left lower limb; W19.XXXA Unspecified fall, initial encounter
CPT/HCPCS: 73562; 99283

== ENCOUNTER 2021-02-21 20:41 | Emergency (ER) | payer OTHER, SELFPAY ==
[2021-02-21 20:55] VITALS: BP 154/96; PULSE 113; RESP 26; TEMP 36.8; O2SAT 98
--- NOTE | 2021-02-21 21:08 | ED.LOWEXIN ---
HPI - Extremity Injury (Lower) General Chief Complaint: Extremity Injury, Lower Stated Complaint: knee swelling, bruised(both) Time Seen by Provider: 02/21/21 21:08 Source: patient Mode of arrival: wheelchair History of Present Illness HPI Narrative: 66-year-old male with a history of alcohol use, smoking with hypertension, coronary artery disease status post stents, dyslipidemia, COPD, recurrent falls fell a few days ago. he fell on both his knees and sustained abrasions of the left greater than the right. He presented to the ER yesterday. he returns to the ER with ongoing left knee pain and abrasion. No fever or chills. He walked the ER. No head injury. No other injuries noted. History of chronic left knee pain patient had an x-ray done yesterday of the left knee which did not show any acute osseous findings. complaint: knee injury Onset (ago): day(s) ( Three days ago) Injury: Right: knee Type of Injury: blunt Severity: moderate Relieving factors: nothing Exacerbating factors: weight bearing and movement Context: fall Associated symptoms: snap/pop sensation ( no swelling. Able to bear weight.) Other symptoms: none Related Data Home Medications Medication Instructions Recorded Confirmed aripiprazole 5 mg PO DAILY 09/16/19 02/21/21 atorvastatin 40 mg PO HS 09/16/19 02/21/21 duloxetine 60 mg PO DAILY 09/16/19 02/20/21 famotidine 20 mg PO DAILY 09/16/19 02/20/21 mirtazapine 15 mg PO DAILY 09/16/19 02/21/21 omeprazole 40 mg PO DAILY 09/16/19 02/21/21 quetiapine 400 mg PO HS 09/16/19 02/21/21 tamsulosin 0.4 mg PO DAILY 09/16/19 02/21/21 aspirin 81 mg PO DAILY 09/27/19 02/20/21 folic acid 1 mg PO DAILY 09/27/19 02/20/21 dutasteride 0.5 mg PO DAILY 03/20/20 02/20/21 ferrous sulfate 325 mg PO DAILY 03/20/20 02/20/21 lamotrigine 200 mg PO DAILY 03/20/20 02/21/21 Allergies Allergy/AdvReac Type Severity Reaction Status Date / Time No Known Allergies Allergy Verified 02/21/21 21:10 Review of Systems Review of Systems: All systems reviewed & are unremarkable except as noted in HPI and below Constitutional: Constitutional: Reports as per HPI and Reports no additional constitutional complaints Eyes: Eyes: Reports as per HPI and Reports no additional eye complaints ENT: Reports system reviewed and no additional complaints, except as documented Cardiovascular: Cardiovascular: Reports as per HPI and Reports no additional cardiovascular complaints Respiratory: Respiratory: Reports cough, Reports dyspnea and Reports other ( Chronic cough with sputum production and shortness of breath.) Gastrointestinal: Gastrointestinal: Reports as per HPI and Reports no additional gastrointestinal complaints Genitourinary: Genitourinary: Reports no additional male genitourinary complaints Musculoskeletal: Musculoskeletal: Reports other ( Bilateral knee pain.) Integumentary/Breasts: Skin/Breast: Reports as per HPI Comments: bilateral knee abrasions worst on the left side. No erythema. No discharge. Neurologic: Reports system reviewed and no additional complaints, except as documented and Reports as per HPI Comments: History of recurrent falls. Psychiatric: Psychiatric: Reports no additional psychiatric complaints Endocrine: Endocrine: Reports no additional endocrine complaints and Reports as per HPI Hematologic/Lymphatic: Hematologic/Lymphatic: Reports no additional hematologic/lymphatic complaints and Reports as per HPI Allergic/Immunologic: Allergic/Immunologic: Reports no additional allergic/immunologic complaints and Reports as per HPI PMF Past Medical History Medical History Anemia CAD (coronary artery disease) GERD (gastroesophageal reflux disease) Hyperlipidemia Hypertension Postural hypotension Surgical History Surgical History History of cholecystectomy Stented coronary artery Family
[2021-02-21 21:50] VITALS: BP 157/96; PULSE 108; RESP 16; O2SAT 97
== END 2021-02-21 22:05 | disposition home or self-care (01) ==
PROVIDERS: Emergency Provider Internal Medicine Critical Care Medicine; PCP Family Medicine
DX: S80.212A Abrasion, left knee, initial encounter (principal); S80.211A Abrasion, right knee, initial encounter; W19.XXXD Unspecified fall, subsequent encounter
CPT/HCPCS: 99282; 99283

== ENCOUNTER 2021-03-04 12:44 | Emergency (ER) | payer OTHER, SELFPAY ==
--- NOTE | ~2021-03-04 | XR_ITS ---
EXAMINATION: XR knee LT 3V DATE: 03/04/2021 13:40 INDICATION: Left knee pain. Fall. TECHNIQUE: 3 views of left knee were obtained. COMPARISON: Left knee radiographs 02/20/2021 FINDINGS: Bone alignment is normal. No fracture. Joint spaces are well maintained. There is no knee j oint effusion. IMPRESSION: 1. No fracture. Reviewed, dictated and finalized at location A. NE STEWARD IMPRESSION: 1. No fracture.
[2021-03-04 12:50] VITALS: BP 128/60; PULSE 107; RESP 20; TEMP 36; O2SAT 98
--- NOTE | 2021-03-04 13:04 | ED.LOWEXIN ---
HPI - Extremity Injury (Lower) General Chief Complaint: Extremity Injury, Lower Stated Complaint: L knee pain after fall 24hrs ago Time Seen by Provider: 03/04/21 13:04 Source: patient Mode of arrival: ambulatory History of Present Illness HPI Narrative: 66-year-old male smoker, history of alcohol use with hypertension, dyslipidemia, coronary artery disease status post stent, psychosis, right knee pain he lost balance and fell on his left knee 3 days ago. Subsequently he has been ambulatory but presents with -- left knee pain with decreased range of motion -- left knee abrasion with scabs no head injury. No other injury. up-to-date on tetanus immunization. MD complaint: knee injury Injury: Left: knee Type of Injury: blunt Place: street/outdoors Severity: moderate Severity scale (1-10): 4 Relieving factors: nothing Exacerbating factors: nothing Context: fall Associated symptoms: ambulatory Other symptoms: none Related Data Home Medications Medication Instructions Recorded Confirmed aripiprazole 5 mg PO DAILY 09/16/19 03/04/21 atorvastatin 40 mg PO HS 09/16/19 03/04/21 duloxetine 60 mg PO DAILY 09/16/19 03/04/21 famotidine 20 mg PO DAILY 09/16/19 03/04/21 mirtazapine 15 mg PO DAILY 09/16/19 03/04/21 omeprazole 40 mg PO DAILY 09/16/19 03/04/21 quetiapine 400 mg PO HS 09/16/19 03/04/21 tamsulosin 0.4 mg PO DAILY 09/16/19 03/04/21 aspirin 81 mg PO DAILY 09/27/19 03/04/21 folic acid 1 mg PO DAILY 09/27/19 03/04/21 dutasteride 0.5 mg PO DAILY 03/20/20 03/04/21 ferrous sulfate 325 mg PO DAILY 03/20/20 03/04/21 lamotrigine 200 mg PO DAILY 03/20/20 03/04/21 Allergies Allergy/AdvReac Type Severity Reaction Status Date / Time No Known Allergies Allergy Verified 02/21/21 21:10 Review of Systems Review of Systems: All systems reviewed & are unremarkable except as noted in HPI and below Constitutional: Constitutional: Reports as per HPI and Reports no additional constitutional complaints Eyes: Eyes: Reports as per HPI and Reports no additional eye complaints ENT: Reports system reviewed and no additional complaints, except as documented and Reports as per HPI Cardiovascular: Cardiovascular: Reports as per HPI and Reports no additional cardiovascular complaints Respiratory: Respiratory: Reports as per HPI and Reports cough Comments: Chronic cough sputum production and shortness of breath Gastrointestinal: Gastrointestinal: Reports as per HPI and Reports no additional gastrointestinal complaints Genitourinary: Genitourinary: Reports as per HPI ( symptoms of prostatism) Musculoskeletal: Comments: left knee pain Integumentary/Breasts: Comments: abrasion of the left knee with healed scabs Neurologic: Reports system reviewed and no additional complaints, except as documented and Reports as per HPI Psychiatric: Psychiatric: Reports no additional psychiatric complaints Endocrine: Endocrine: Reports no additional endocrine complaints Hematologic/Lymphatic: Hematologic/Lymphatic: Reports no additional hematologic/lymphatic complaints Allergic/Immunologic: Allergic/Immunologic: Reports no additional allergic/immunologic complaints PMFSH Past Medical History Medical History Anemia CAD (coronary artery disease) GERD (gastroesophageal reflux disease) Hyperlipidemia Hypertension Postural hypotension Surgical History Surgical History History of cholecystectomy Stented coronary artery Family History Family History Father Cancer Mother Cancer Social History Social History Smoking packs per day: 3 Smoking cigarettes per day: 60.0 Years smoked: 48 Smoking pack-years: 144.00 Smoking status: Current every day smoker Tobacco type: cigarettes Second hand tobacco smoke exposure: Y
== END 2021-03-04 14:15 | disposition home or self-care (01) ==
PROVIDERS: Emergency Provider Internal Medicine Critical Care Medicine; PCP Family Medicine
DX: S80.212A Abrasion, left knee, initial encounter (principal); M25.562 Pain in left knee; W19.XXXA Unspecified fall, initial encounter
CPT/HCPCS: 73562; 99282; 99283

== ENCOUNTER 2021-03-15 10:21 | Emergency (ER) | payer OTHER, SELFPAY ==
[2021-03-15 10:30] VITALS: BP 159/92; PULSE 102; RESP 20; TEMP 36.1; O2SAT 98
--- NOTE | 2021-03-15 11:10 | ED.EXTPRO ---
HPI - Extremity Problem General Chief complaint: Extremity Problem,Nontraumatic Stated complaint: ambulance Source: patient, EMS and RN notes reviewed Mode of arrival: EMS Limitations: no limitations History of Present Illness HPI Narrative: patient states he woke up this morning with severe bilateral shoulder pain. Hurts when he moves his shoulders or touches them. He denies any falls. Denies any injury. Also denies any fever chills nausea vomiting. MD Complaint: joint paint ( Bilateral shoulders) Onset (ago): hour(s) (4) Pain Consistency: constant Location: upper extremity ( bilateral shoulder) Quality: aching and constant Radiation: none Relieving factors: nothing Exacerbating factors: range of motion and palpation Associated symptoms: denies other symptoms Related Data Home Medications Medication Instructions Recorded Confirmed aripiprazole 5 mg PO DAILY 09/16/19 03/15/21 atorvastatin 40 mg PO HS 09/16/19 03/15/21 duloxetine 60 mg PO DAILY 09/16/19 03/15/21 famotidine 20 mg PO DAILY 09/16/19 03/15/21 mirtazapine 15 mg PO DAILY 09/16/19 03/15/21 omeprazole 40 mg PO DAILY 09/16/19 03/15/21 quetiapine 400 mg PO HS 09/16/19 03/15/21 tamsulosin 0.4 mg PO DAILY 09/16/19 03/15/21 aspirin 81 mg PO DAILY 09/27/19 03/15/21 folic acid 1 mg PO DAILY 09/27/19 03/15/21 dutasteride 0.5 mg PO DAILY 03/20/20 03/15/21 ferrous sulfate 325 mg PO DAILY 03/20/20 03/04/21 lamotrigine 200 mg PO DAILY 03/20/20 03/04/21 clopidogrel 75 mg PO DAILY 03/15/21 03/15/21 lamotrigine 150 mg PO DAILY 03/15/21 03/15/21 meclizine 25 mg PO DAILY 03/15/21 03/15/21 Allergies Allergy/AdvReac Type Severity Reaction Status Date / Time No Known Allergies Allergy Verified 03/15/21 10:29 Review of Systems Review of Systems: All systems reviewed & are unremarkable except as noted in HPI and below Constitutional: Constitutional: Denies chills and Denies fever(s) Cardiovascular: Cardiovascular: Denies chest pain Respiratory: Respiratory: Denies cough and Denies dyspnea Gastrointestinal: Gastrointestinal: Denies nausea and Denies vomiting [facility] Past Medical History Medical History Anemia CAD (coronary artery disease) GERD (gastroesophageal reflux disease) Hyperlipidemia Hypertension Postural hypotension Surgical History Surgical History History of cholecystectomy Stented coronary artery Family History Family History Father Cancer Mother Cancer Social History Social History Smoking packs per day: 3 Smoking cigarettes per day: 60.0 Years smoked: 48 Smoking pack-years: 144.00 Smoking status: Current every day smoker Tobacco type: cigarettes Second hand tobacco smoke exposure: Yes Alcohol intake: former Alcohol use details: denies alcohol use Substance use: former Other substance usage details: No drinking x 1 month per patient report Gender identity (if verbalized by the patient): Male Spiritual care concerns: No Exam Const: General: no acute distress and alert Nutritional Appearance: obese centrally obese Orientation/consciousness: patient oriented x3 HENMT: Head: normal to inspection Ears: external ears normal Face and sinus: normal facial exam Eyes: Conjunctivae: conjunctivae normal Pupils: Equal, round and reactive pupils present Neck: Neck: normal visual inspection Resp: Effort & Inspection: normal respiratory effort Auscultation: clear to auscultation bilaterally Cardio: Rate: regular rate Rhythm: regular rhythm GI: GI Palp: Yes Soft to palpation and No Tenderness to palpation present (GI) Auscultation: normal bowel sounds Back/Spine/Pelvis: Cervical Spine: cervical ROM normal Thoracic/Lumbar Spine: thoraco-lumbar ROM normal Skin: General skin exam: normal
[2021-03-15] MEDS: KETOROLAC (*BKC) 60 MG/2 ML VIAL IM (11:17)
[2021-03-15 11:55] VITALS: BP 182/90; PULSE 99; RESP 18; O2SAT 97
--- NOTE | 2021-03-15 12:00 | PC.NURSE ---
Sister called and unable to pick patient up at this time. Pt notified. Wheeled to waiting room to wait for ride. Pt able to transition to wheelchair without difficulty.
== END 2021-03-15 11:55 | disposition home or self-care (01) ==
PROVIDERS: Emergency Provider Emergency Medicine; PCP Family Medicine
DX: M25.511 Pain in right shoulder (principal)
CPT/HCPCS: 96372; 99283; J1885

== ENCOUNTER 2021-03-25 13:05 | Emergency (ER) | payer MEDICARE, MEDICAID, SELFPAY ==
--- NOTE | ~2021-03-25 | CT_ITS ---
EXAMINATION: CT cervical spine wo con DATE: 03/25/2021 14:16 INDICATION: Head injury. TECHNIQUE: Computed tomography (CT) of the cervical spine was performed without intravenous contrast. Automated exposure control and iterative reconstruction technique were employed. The dose-length pro duct was 639.48 mGy-cm. COMPARISON: CT cervical spine 09/16/2019 FINDINGS: C1 ring is chronically ununited anteriorly and posteriorly. There is 13 degrees levoscolios is of cervical thoracic spine. There is kyphosis of cervical spine. There is 2 mm retrolisthesis of C 3 on C4. There is mild chronic anterior wedging of C5 vertebral body. There is severely decreased dis c height at C4-C5, moderately decreased disc height at C5-C6 and C6-C7, and severely decreased disc h eight at C7-T1. Again seen is a 14 mm sebaceous cyst in left posterior neck. The following disc level s are specifically discussed: C2-C3: There is mild left uncovertebral joint osteoarthritis. There is severe bilateral facet joint o steoarthritis. There is no neural foraminal stenosis. There is no central canal stenosis. C3-C4: There is mild right and moderate left uncovertebral joint osteoarthritis. There is mild right and severe left facet joint osteoarthritis. There is mild bilateral neural foraminal stenosis. There is mild central canal stenosis. C4-C5: There is severe bilateral uncovertebral joint osteoarthritis. There is moderate right and mild left facet joint osteoarthritis. There is mild bilateral neural foraminal stenosis. There is mild ce ntral canal stenosis. C5-C6: There is mild right and moderate left uncovertebral joint osteoarthritis. There is mild bilate ral facet joint osteoarthritis. There is mild left neural foraminal stenosis. There is mild central c anal stenosis. C6-C7: There is severe bilateral uncovertebral joint osteoarthritis. There is mild bilateral facet hola int osteoarthritis. There is mild right and moderate left neural foraminal stenosis. There is mild ce ntral canal stenosis. C7-T1: There is severe bilateral uncovertebral joint osteoarthritis. There is mild bilateral facet hola int osteoarthritis. There is mild bilateral neural foraminal stenosis. There is mild central canal st enosis. IMPRESSION: 1. No fracture. 2. Severe cervical spondylosis. Reviewed, dictated and finalized at location A. AL PROGRAM MANAGER
--- NOTE | ~2021-03-25 | CT_ITS ---
EXAMINATION: CT brain wo con DATE: 03/25/2021 14:15 INDICATION: Head injury. TECHNIQUE: Computed tomography (CT) of the head was performed without intravenous contrast. The mA wa s adjusted according to patient size. Iterative reconstruction technique was employed. The dose-lengt h product was 681.00 mGy-cm. COMPARISON: Head CT 10/04/2020 FINDINGS: There are scattered areas of low attenuation in the cerebral white matter. There is no intr acranial hemorrhage, acute infarction, or abnormal intracranial mass lesion. The ventricles are danny l in size. There is mild mucosal thickening in the paranasal sinuses. The mastoid air cells are danny l. There are no pathologically enlarged lymph nodes. IMPRESSION: 1. Stable mild nonspecific cerebral white matter disease, which likely represents chronic small vesse l ischemic disease. Reviewed, dictated and finalized at location A. E [employer]Y IMPRESSION: 1. Stable mild nonspecific cerebral white matter disease, which likely represen ts chronic small vessel ischemic disease.
--- NOTE | 2021-03-25 13:10 | PC.NURSE ---
Pt arrives via EMS. Pt assessed. Pt noted to have skin tear to back of head. Bleeding controlled. Pt denies LOC. No acute distress noted. Pt to waiting room for triage and open room.
[2021-03-25 14:03] VITALS: BP 148/96; PULSE 96; RESP 16; TEMP 36.2; O2SAT 96
[2021-03-25 14:52] LABS: Basophils Absolute Auto 0.04 K/mm3 (0.00-0.10); Basophils Percent Auto 0.5 % (0.0-1.0); Eosinophils Absolute Auto 0.25 K/mm3 (0.02-0.50); Hematocrit 35.5 % (37.0-46.0); Hemoglobin 12.1 g/dL (12.4-15.3); Immature Granulocyte Absolute 0.05 K/mm3 (0.00-0.00); Immature Granulocyte Percent A 0.6 % (0.0-0.0); Lymphocytes Absolute Auto 1.47 K/mm3 (1.10-4.50); Lymphocytes Percent Auto 17.7 % (18.0-42.0); Mean Corpuscular HGB Conc 34.1 g/dL (32.0-36.0); Mean Corpuscular Hemoglobin 29.9 pg (27.0-31.0); Mean Corpuscular Volume 87.7 fL (78.0-102.0); Mean Platelet Volume 8.4 fl (8.7-11.0); Monocytes Absolute Auto 0.64 K/mm3 (0.10-0.90); Monocytes Percent Auto 7.7 % (2.0-11.0); Neutrophils Absolute Auto 5.9 K/mm3 (1.7-7.2); Neutrophils Percent Auto 70.5 % (50.0-70.0); Platelet Count Result 427 K/mm3 (150-420); Red Blood Count 4.05 M/mm3 (4.70-6.10); Red Cell Distribution Width 13.3 % (11.6-14.4); White Blood Count 8.3 K/mm3 (4.8-10.8)
[2021-03-25 15:03] LABS: Alanine Aminotransferase 30 U/L (16-63); Albumin Level 4.3 g/dL (3.4-5.0); Alkaline Phosphatase 117 U/L (46-116); Anion Gap 9 mmol/L (8-16); Aspartate Amino Transferase 14 U/L (15-37); Bilirubin,Total 0.4 mg/dL (0.00-1.00); Blood Urea Nitrogen 11 mg/dL (7-18); Calcium 9.4 mg/dL (8.5-10.1); Carbon Dioxide 29 mmol/L (21-32); Chloride 98 mmol/L (98-108); Estimated CRCL calculation 52 ml/min; Estimated Glomerular Filt Rate 58; Glucose 110 mg/dL (70-99); Osmolality Calculated 282 mOsm/kg (285-295); Potassium 4.6 mmol/L (3.5-5.1); Sodium 136 mmol/L (136-145); Total Protein 7.5 g/dL (6.4-8.2)
[2021-03-25 15:09] LABS: Partial Thromboplastin Time 25.6 SEC (23.90-30.70); Prothrombin Time 10.3 Seconds (9.50-12.10)
[2021-03-25 15:14] LABS: Add Urine Microscopic? NO; Appearance Urine Clear (Clear); Bilirubin Urine Negative (Negative); Blood Urine Negative (Negative); Color Urine Light Yellow (Yellow); Glucose Urine UA Negative (Negative); Ketones Urine Negative (Negative); Leukocyte Esterase Ur Negative (Negative); Nitrate Urine Negative (Negative); Protein Urine Negative (Negative); Specific Grav Ur <= 1.005 (1.010-1.020); Urobilinogen Urine 0.2 mg/dL (0.2-1.0)
--- NOTE | 2021-03-25 15:44 | ED.HEATRA ---
HPI - Head Injury General Chief complaint: Head Injury Stated complaint: fall, hit head Source: patient Mode of arrival: ambulatory History of Present Illness HPI Narrative: this 66-year-old gentleman that presents after he slipped on a patch of ice hitting the back of his head causing abrasion with no loss of consciousness no nausea vomiting no headache no blurry vision no neurological deficits has good range of motion all extremities no neck pain or stiffness no fever chills. Complaint: head injury Onset (ago): hour(s) Mechanism of Injury: fall ( slipped on a patch of ice) Place: home Loss of Consciousness: no Location of injury: occipital Severity: mild Radiation: none Other Injuries: none Related Data Home Medications Medication Instructions Recorded Confirmed aripiprazole 5 mg PO DAILY 09/16/19 03/15/21 atorvastatin 40 mg PO HS 09/16/19 03/15/21 duloxetine 60 mg PO DAILY 09/16/19 03/15/21 famotidine 20 mg PO DAILY 09/16/19 03/15/21 mirtazapine 15 mg PO DAILY 09/16/19 03/15/21 omeprazole 40 mg PO DAILY 09/16/19 03/15/21 quetiapine 400 mg PO HS 09/16/19 03/15/21 tamsulosin 0.4 mg PO DAILY 09/16/19 03/15/21 aspirin 81 mg PO DAILY 09/27/19 03/15/21 folic acid 1 mg PO DAILY 09/27/19 03/15/21 dutasteride 0.5 mg PO DAILY 03/20/20 03/15/21 ferrous sulfate 325 mg PO DAILY 03/20/20 03/04/21 lamotrigine 200 mg PO DAILY 03/20/20 03/04/21 clopidogrel 75 mg PO DAILY 03/15/21 03/15/21 lamotrigine 150 mg PO DAILY 03/15/21 03/15/21 meclizine 25 mg PO DAILY 03/15/21 03/15/21 Allergies Allergy/AdvReac Type Severity Reaction Status Date / Time No Known Allergies Allergy Verified 03/25/21 14:26 Review of Systems Review of Systems: All systems reviewed & are unremarkable except as noted in HPI and below PMFSH Past Medical History Medical History Anemia CAD (coronary artery disease) GERD (gastroesophageal reflux disease) Hyperlipidemia Hypertension Postural hypotension Surgical History Surgical History History of cholecystectomy Stented coronary artery Family History Family History Father Cancer Mother Cancer Social History Social History Smoking packs per day: 3 Smoking cigarettes per day: 60.0 Years smoked: 48 Smoking pack-years: 144.00 Smoking status: Current every day smoker Tobacco type: cigarettes Second hand tobacco smoke exposure: Yes Alcohol intake: former Alcohol use details: denies alcohol use Substance use: former Other substance usage details: No drinking x 1 month per patient report Gender identity (if verbalized by the patient): Male Spiritual care concerns: No Exam Const: General: no acute distress Orientation/consciousness: patient oriented x3 HENMT: Head: normal to inspection and contusion Eyes: Conjunctivae: conjunctivae normal Pupils: Equal, round and reactive pupils present Neck: Neck: normal visual inspection, no lymphadenopathy and no meningeal signs Chest: Chest palpation & inspection: normal inspection of the chest Resp: Effort & Inspection: normal respiratory effort Auscultation: clear to auscultation bilaterally Cardio: Rate: regular rate Rhythm: regular rhythm GI: GI Palp: Yes Soft to palpation : Testes: Testes normal Skin: General skin exam: normal color Rashes: no rashes Neuro: General: patient oriented x3 and moves all extremities Extrem: General: normal to inspection and no pedal edema Psych: Mental Status: mental status grossly normal Affect: normal affect Course Course Emergency Course: Patient is baseline, reviewed scans and blood work patient and can go home take Tylenol or Motrin and follow-up primary care physician. Vital Signs Vital signs: Vital Signs Temperature 36.2 C L 03/25/21
== END 2021-03-25 16:04 | disposition home or self-care (01) ==
PROVIDERS: Emergency Provider Emergency Medicine; PCP Family Medicine
DX: S09.90XA Unspecified injury of head, initial encounter (principal); W00.0XXA Fall on same level due to ice and snow, initial encounter; I25.10 Atherosclerotic heart disease of native coronary artery without angina pectoris; K21.9 Gastro-esophageal reflux disease without esophagitis; E78.5 Hyperlipidemia, unspecified; I10 Essential (primary) hypertension; F17.200 Nicotine dependence, unspecified, uncomplicated; Z79.899 Other long term (current) drug therapy
CPT/HCPCS: 36415; 70450; 72125; 80053; 81003; 83605; 85025; 85610; 85730; 99282; 99284

== ENCOUNTER 2021-05-18 14:22 | Emergency (ER) | payer MEDICARE, MEDICAID, SELFPAY ==
--- NOTE | ~2021-05-18 | XR_ITS ---
EXAMINATION: XR chest 1V portable DATE: 05/18/2021 15:00 INDICATION: Shortness of breath. TECHNIQUE: A single frontal view of the chest was obtained on 2 radiographs. COMPARISON: Chest single view 02/13/2021 FINDINGS: There is mild atelectasis in the lower lung zones. No pleural effusion or pneumothorax. The heart is normal. IMPRESSION: 1. Mild atelectasis in the lower lung zones. Reviewed, dictated and finalized at location A. HARDENER
--- NOTE | ~2021-05-18 | CT_ITS ---
EXAMINATION: CTA chest PE protocol DATE: 05/18/2021 16:27 INDICATION: Shortness of breath. Cough. TECHNIQUE: Computed tomography angiography (CTA) of the chest was performed with 100 mL Omnipaque-350 intravenous contrast timed to evaluate the pulmonary arteries. Coronal maximum intensity projection 3D-reconstructions were created by the technologist. Automated exposure control and iterative reconst ruction technique were employed. The dose-length product was 789.13 mGy-cm. COMPARISON: Chest CT 02/13/2021 FINDINGS: There is minimal atelectasis in right lower lobe. No pleural effusion. The heart size is no rmal. No pericardial effusion. There are coronary artery calcifications. There is no pulmonary embolu s. There are changes of cholecystectomy. There is a 3.4 cm cyst in left kidney. There is severe thora cic spondylosis. IMPRESSION: 1. No pulmonary embolus. Sensitivity in the segmental arteries is severely decreased by motion artifa ct. Reviewed, dictated and finalized at location A. ERCIAL LINES UNDERWRITER IMPRESSION: 1. No pulmonary embolus. Sensitivity in the segmental arteries is severely decr eased by motion artifact.
--- NOTE | 2021-05-18 14:44 | ECG_ITS ---
Measurements Intervals [place] Rate: 98 P: 15 UT: 165 QRS: 73 QRSD: 130 T: 28 QT: 350 QTc: 448 Interpretive Statements SINUS RHYTHM RIGHT BUNDLE BRANCH BLOCK [120+ ms QRS DURATION, UPRIGHT V1, 40+ ms S IN I/aVL/V4/V5/V6] RIGHT AXIS DEVIATION ABNORMAL ECG Electronically Signed On 05-18-2021 15:19:14 [employer] GENER[employer] REPAIR MECHANIC by Laci Voss M.D.
[2021-05-18 14:49] VITALS: BP 150/88; PULSE 99; RESP 20; TEMP 36.7; O2SAT 99
[2021-05-18] MEDS: methylPREDNISolone SOD SUCC 125 MG VIAL IV PUSH (15:21)
--- NOTE | 2021-05-18 15:22 | ED.SOB ---
HPI - SOB/Dyspnea General Chief Complaint: Shortness of Breath/Dyspnea Stated Complaint: Ambulance Source: patient and EMS Mode of arrival: EMS Limitations: no limitations History of Present Illness HPI Narrative: This is a 66-year-old gentleman with history of COPD history of hyperlipidemia presents via EMS with increased shortness of breath has some audible wheezes currently there is no fever chills vitals are stable there is no chest pain there is no abdominal pain there is no peripheral edema no nausea or vomiting no cough or congestion. MD elicited complaint: shortness of breath Pertinent past history: COPD Onset (ago): hour(s) Context: anxiety Severity: moderate Related Data Home Medications Medication Instructions Recorded Confirmed aripiprazole 2 mg PO DAILY 09/16/19 05/18/21 atorvastatin 40 mg PO HS 09/16/19 05/18/21 famotidine 20 mg PO BID 09/16/19 05/18/21 mirtazapine 15 mg PO DAILY 09/16/19 05/18/21 omeprazole 40 mg PO DAILY 09/16/19 05/18/21 quetiapine 400 mg PO HS 09/16/19 05/18/21 tamsulosin 0.4 mg PO DAILY 09/16/19 05/18/21 aspirin 81 mg PO DAILY 09/27/19 05/18/21 folic acid 1 mg PO DAILY 09/27/19 05/18/21 dutasteride 0.5 mg PO DAILY 03/20/20 05/18/21 ferrous sulfate 325 mg PO DAILY 03/20/20 05/18/21 lamotrigine 200 mg PO DAILY 03/20/20 05/18/21 clopidogrel 75 mg PO DAILY 03/15/21 05/18/21 lamotrigine 150 mg PO DAILY 03/15/21 05/18/21 meclizine 25 mg PO DAILY 03/15/21 05/18/21 naproxen 500 mg PO BID 05/18/21 05/18/21 Allergies Allergy/AdvReac Type Severity Reaction Status Date / Time No Known Allergies Allergy Verified 05/18/21 14:56 Review of Systems Review of Systems: All systems reviewed & are unremarkable except as noted in HPI and below PMFSH Past Medical History Medical History Anemia CAD (coronary artery disease) GERD (gastroesophageal reflux disease) Hyperlipidemia Hypertension Postural hypotension Surgical History Surgical History History of cholecystectomy Stented coronary artery Family History Family History Father Cancer Mother Cancer Social History Social History Smoking packs per day: 3 Smoking cigarettes per day: 60.0 Years smoked: 48 Smoking pack-years: 144.00 Smoking status: Current every day smoker Tobacco type: cigarettes Second hand tobacco smoke exposure: Yes Alcohol intake: former Alcohol use details: denies alcohol use Substance use: former Other substance usage details: No drinking x 1 month per patient report Gender identity (if verbalized by the patient): Male Spiritual care concerns: No Exam Const: General: no acute distress and alert Orientation/consciousness: patient oriented x3 HENMT: Head: normal to inspection Eyes: Conjunctivae: conjunctivae normal Pupils: Equal, round and reactive pupils present Neck: Neck: normal visual inspection, no lymphadenopathy and no meningeal signs Chest: Chest palpation & inspection: normal inspection of the chest Resp: Effort & Inspection: normal respiratory effort Auscultation: wheezes and diminished lung sounds Cardio: Rate: regular rate Rhythm: regular rhythm GI: GI Palp: Yes Soft to palpation Percussion: Yes normal to percussion : Other: Difficulty passing urine Back/Spine/Pelvis: Back: no CVA tenderness Skin: General skin exam: normal color Rashes: no rashes Neuro: General: patient oriented x3, moves all extremities, no meningeal signs and no focal motor deficits Extrem: General: normal to inspection and no pedal edema Psych: Mental Status: mental status grossly normal Affect: normal affect Attitude: cooperative Course Course Emergency Course: patient had x-ray performed patient was given DuoNebs and IV Solu-Medrol labs reviewed
[2021-05-18 15:25] VITALS: PULSE 98; RESP 20; O2SAT 97
[2021-05-18] MEDS: IPRATROPIUM 0.5 MG/ALBUTEROL SULFATE 2.5 MG AMPUL.NEB 3 ML INHALATION (15:27)
[2021-05-18 15:28] LABS: Basophils Absolute Auto 0.05 K/mm3 (0.00-0.10); Basophils Percent Auto 0.5 % (0.0-1.0); Eosinophils Absolute Auto 0.36 K/mm3 (0.02-0.50); Eosinophils Percent Auto 3.6 % (1.0-6.0); Hemoglobin 11.7 g/dL (12.4-15.3); Immature Granulocyte Absolute 0.03 K/mm3 (0.00-0.00); Immature Granulocyte Percent A 0.3 % (0.0-0.0); Lymphocytes Absolute Auto 1.54 K/mm3 (1.10-4.50); Lymphocytes Percent Auto 15.4 % (18.0-42.0); Mean Corpuscular HGB Conc 33.4 g/dL (32.0-36.0); Mean Corpuscular Hemoglobin 29.5 pg (27.0-31.0); Mean Corpuscular Volume 88.4 fL (78.0-102.0); Mean Platelet Volume 8.8 fl (8.7-11.0); Monocytes Absolute Auto 1.12 K/mm3 (0.10-0.90); Monocytes Percent Auto 11.2 % (2.0-11.0); Neutrophils Absolute Auto 6.9 K/mm3 (1.7-7.2); Platelet Count Result 347 K/mm3 (150-420); Red Blood Count 3.96 M/mm3 (4.70-6.10)
[2021-05-18 15:36] VITALS: PULSE 96; RESP 20; O2SAT 99
[2021-05-18 15:41] LABS: INR 0.9; Prothrombin Time 9.9 Seconds (9.50-12.10)
[2021-05-18 15:49] LABS: Partial Thromboplastin Time 26.5 SEC (23.90-30.70)
[2021-05-18 15:52] LABS: Alanine Aminotransferase 29 U/L (16-63); Albumin Level 4.3 g/dL (3.4-5.0); Alkaline Phosphatase 90 U/L (46-116); Anion Gap 9 mmol/L (8-16); Aspartate Amino Transferase 17 U/L (15-37); Bilirubin,Total 0.3 mg/dL (0.00-1.00); Blood Urea Nitrogen 9 mg/dL (7-18); Calcium 9.1 mg/dL (8.5-10.1); Carbon Dioxide 27 mmol/L (21-32); Chloride 97 mmol/L (98-108); Estimated CRCL calculation 61 ml/min; Estimated Glomerular Filt Rate > 60; Glucose 103 mg/dL (70-99); NT Pro B Type Natriuretic Pept 33 pg/mL (0-125); Osmolality Calculated 274 mOsm/kg (285-295); Potassium 4.2 mmol/L (3.5-5.1); Sodium 133 mmol/L (136-145); Total Protein 7.5 g/dL (6.4-8.2); Troponin I 8.2 ng/L (0.00-60.4)
[2021-05-18 16:00] LABS: Magnesium 1.7 mg/dL (1.8-2.4)
[2021-05-18 17:20] VITALS: BP 144/84; PULSE 94; RESP 20; TEMP 36.7; O2SAT 98
== END 2021-05-18 17:22 | disposition home or self-care (01) ==
PROVIDERS: Emergency Provider Emergency Medicine; PCP Family Medicine
DX: J44.9 Chronic obstructive pulmonary disease, unspecified (principal); I25.10 Atherosclerotic heart disease of native coronary artery without angina pectoris; K21.9 Gastro-esophageal reflux disease without esophagitis; E78.5 Hyperlipidemia, unspecified; I10 Essential (primary) hypertension; F17.200 Nicotine dependence, unspecified, uncomplicated
CPT/HCPCS: 36415; 71045; 71275; 80053; 83735; 83880; 84484; 85025; 85380; 85610; 85730; 87040; 93005; 94640; 96374; 99284; J2930; Q9967

== ENCOUNTER 2021-06-12 21:30 | Emergency (ER) | payer MEDICARE, MEDICAID, SELFPAY ==
[2021-06-12 21:49] VITALS: BP 176/101; PULSE 103; RESP 21; TEMP 36.3; O2SAT 97
[2021-06-12 21:50] VITALS: BP 176/101; PULSE 103; RESP 21; TEMP 36.3; O2SAT 97
--- NOTE | 2021-06-12 22:02 | PC.NURSE ---
EMS stated that pt called 911 for shortness of breath upon arrival pt informed EMS that he has people threatening him and wanted to come to the hospital. pt stated, I have people threatening me and wanted to get away . [place] police at bed side. pt spoke with [place] police. this staff member asked the pt if there was anything medically that he needs? pt stated, No . pt stated, I guess i should not have called . I don't need to see the doctor . I can just go home . Just take this stuff off and i can walk home . pt signed AMA form prior to being seen by doctor.
== END 2021-06-12 21:50 | disposition left against medical advice (07) ==
LOC: CHSED 21:35
PROVIDERS: Emergency Provider Emergency Medicine; PCP Family Medicine
DX: Z04.9 Encounter for examination and observation for unspecified reason (principal)
CPT/HCPCS: 99199

== ENCOUNTER 2021-08-17 12:46 | Emergency (ER) | payer MEDICARE, MEDICAID, SELFPAY ==
--- NOTE | ~2021-08-17 | XR_ITS ---
EXAMINATION: XR chest 2V 08/17/2021 13:18 INDICATION: Chest pain PROCEDURE: 2 view chest COMPARISON: Comparison to multiple prior studies sequentially, with oldest reviewed study dated 10/04. FINDINGS: The lungs are clear. The cardiomediastinal silhouette is within normal limits. There are no pleural effusions. There is no pneumothorax suspected. There is a coronary artery stent. IMPRESSION: 1: NO ACUTE CARDIOPULMONARY DISEASE. Reviewed, dictated and finalized at location A.
--- NOTE | 2021-08-17 13:00 | ECG_ITS ---
Measurements Intervals [place] Rate: 87 P: 44 [place]: 183 QRS: 25 QRSD: 134 T: 37 QT: 361 QTc: 435 Interpretive Statements SINUS RHYTHM RIGHT BUNDLE BRANCH BLOCK [120+ ms QRS DURATION, UPRIGHT V1, 40+ ms S IN I/aVL/V4/V5/V6] ABNORMAL ECG COMPARED TO ECG 05/18/2021 15:00:51 NO SIGNIFICANT CHANGES Electronically Signed On 08-17-2021 17:37:40 CDT by Rakan Herrmann M.D.
[2021-08-17 13:15] VITALS: BP 144/83; PULSE 92; RESP 20; TEMP 36.7; O2SAT 99
[2021-08-17 13:20] VITALS: O2SAT 99
[2021-08-17 13:28] LABS: Basophils Absolute Auto 0.05 K/mm3 (0.00-0.10); Basophils Percent Auto 0.9 % (0.0-1.0); Eosinophils Percent Auto 3.4 % (1.0-6.0); Hematocrit 33.9 % (37.0-46.0); Hemoglobin 11.2 g/dL (12.4-15.3); Immature Granulocyte Absolute 0.03 K/mm3 (0.00-0.00); Immature Granulocyte Percent A 0.5 % (0.0-0.0); Lymphocytes Absolute Auto 1.68 K/mm3 (1.10-4.50); Lymphocytes Percent Auto 28.9 % (18.0-42.0); Mean Corpuscular Hemoglobin 28.5 pg (27.0-31.0); Mean Corpuscular Volume 86.3 fL (78.0-102.0); Mean Platelet Volume 8.3 fl (8.7-11.0); Monocytes Absolute Auto 0.76 K/mm3 (0.10-0.90); Monocytes Percent Auto 13.1 % (2.0-11.0); Neutrophils Absolute Auto 3.1 K/mm3 (1.7-7.2); Neutrophils Percent Auto 53.2 % (50.0-70.0); Platelet Count Result 326 K/mm3 (150-420); Red Blood Count 3.93 M/mm3 (4.70-6.10); Red Cell Distribution Width 14.4 % (11.6-14.4); White Blood Count 5.8 K/mm3 (4.8-10.8)
[2021-08-17 13:41] LABS: Partial Thromboplastin Time 24.7 SEC (23.90-30.70); Prothrombin Time 10.6 Seconds (9.50-12.10)
[2021-08-17] MEDS: KETOROLAC 30 MG/ML VIAL (*BKC) IV PUSH (13:45)
[2021-08-17] MEDS: MAG HYDROX/ALUMINUM HYD/SIMETH 30 ML, PHENobarb/HYOSCY/ATROPINE/SCOP 32.4 MG, LIDOCAINE... PO (13:46)
[2021-08-17 13:54] LABS: Alanine Aminotransferase 35 U/L (16-63); Albumin Level 4.3 g/dL (3.4-5.0); Alkaline Phosphatase 75 U/L (46-116); Anion Gap 6 mmol/L (8-16); Aspartate Amino Transferase 17 U/L (15-37); Bilirubin,Total 0.3 mg/dL (0.00-1.00); Blood Urea Nitrogen 6 mg/dL (7-18); Calcium 9.1 mg/dL (8.5-10.1); Carbon Dioxide 28 mmol/L (21-32); Chloride 97 mmol/L (98-108); Estimated CRCL calculation 62 ml/min; Estimated Glomerular Filt Rate > 60; Glucose 100 mg/dL (70-99); Lipase 74 U/L (73-393); NT Pro B Type Natriuretic Pept 22 pg/mL (0-125); Osmolality Calculated 269 mOsm/kg (285-295); Potassium 4.3 mmol/L (3.5-5.1); Sodium 131 mmol/L (136-145); Total Protein 7.2 g/dL (6.4-8.2)
[2021-08-17 13:56] LABS: Troponin I 7.5 ng/L (0.00-60.4)
--- NOTE | 2021-08-17 14:04 | ED.CHESTPAIN ---
HPI - Chest Pain General Chief Complaint: Chest Pain Stated Complaint: amb Source: patient and EMS Mode of arrival: EMS Limitations: no limitations History of Present Illness HPI narrative: this is a 66-year-old with history COPD, hypertension presents via EMS with chest discomfort that started last night mainly epigastric with a burning sensation and a reproducible chest pain with palpation with no nausea or vomiting patient is a smoker with no alcohol use no diaphoresis no shortness of breath no abdominal pain no flank pain no cough or congestion no fever chills. MD complaint: chest discomfort Onset (ago): day(s) Timing of current episode: episodic Prior episodes: Yes Onset: during rest Pain location: epigastric and subxiphoid Pain radiation: none Severity: mild Quality: aching and burning Related Data Home Medications Medication Instructions Recorded Confirmed aripiprazole 5 mg tablet 2 mg PO DAILY 09/16/19 08/17/21 atorvastatin 40 mg tablet 40 mg PO HS 09/16/19 08/17/21 famotidine 20 mg tablet 20 mg PO BID 09/16/19 08/17/21 mirtazapine 15 mg tablet 15 mg PO DAILY 09/16/19 08/17/21 omeprazole 40 mg capsule,delayed 40 mg PO DAILY 09/16/19 08/17/21 release quetiapine 200 mg tablet 400 mg PO HS 09/16/19 08/17/21 tamsulosin 0.4 mg capsule 0.4 mg PO DAILY 09/16/19 08/17/21 aspirin 81 mg tablet,delayed 81 mg PO DAILY 09/27/19 08/17/21 release folic acid 1 mg tablet 1 mg PO DAILY 09/27/19 08/17/21 dutasteride 0.5 mg capsule 0.5 mg PO DAILY 03/20/20 08/17/21 lamotrigine 200 mg tablet 200 mg PO DAILY 03/20/20 08/17/21 clopidogrel 75 mg tablet 75 mg PO DAILY 03/15/21 08/17/21 meclizine 25 mg chewable tablet 25 mg PO DAILY 03/15/21 08/17/21 naproxen 500 mg tablet 500 mg PO BID 05/18/21 08/17/21 escitalopram oxalate 20 mg tablet 20 tablet PO DAILY 08/17/21 08/17/21 Allergies Allergy/AdvReac Type Severity Reaction Status Date / Time No Known Allergies Allergy Verified 08/17/21 13:21 Review of Systems Review of Systems: All systems reviewed & are unremarkable except as noted in HPI and below PMFSH Past Medical History Medical History Anemia CAD (coronary artery disease) GERD (gastroesophageal reflux disease) Hyperlipidemia Hypertension Postural hypotension Surgical History Surgical History History of cholecystectomy Stented coronary artery Family History Family History Father Cancer Mother Cancer Social History Social History Smoking packs per day: 3 Smoking cigarettes per day: 60.0 Years smoked: 48 Smoking pack-years: 144.00 Smoking status: Current every day smoker Tobacco type: cigarettes Second hand tobacco smoke exposure: Yes Alcohol intake: former Alcohol use details: denies alcohol use Substance use: former Other substance usage details: No drinking x 1 month per patient report Gender identity (if verbalized by the patient): Male Spiritual care concerns: No Exam Const: General: healthy appearing, no acute distress and alert Limitations: no limitations HENMT: Head: normal to inspection Eyes: Conjunctivae: conjunctivae normal Pupils: Equal, round and reactive pupils present EOM: EOMs intact bilaterally Direct Ophthalmoscopy: no photophobia Chest: Chest palpation & inspection: normal inspection of the chest Resp: Effort & Inspection: normal respiratory effort Cardio: Rate: regular rate GI: GI Palp: Yes Soft to palpation Auscultation: normal bowel sounds Other: Epigastric tenderness with palpation Back/Spine/Pelvis: Back: no CVA tenderness Skin: General skin exam: normal color Rashes: no rashes Neuro: General: patient oriented x3 and moves all extremities Extrem: General: normal to inspection Psych: Mental Status: mental
[2021-08-17] MEDS: SODIUM CHLORIDE 0.9% IV 500 ML 999 ML IV CONT (14:06)
[2021-08-17 14:51] VITALS: BP 145/85; PULSE 81; RESP 20; TEMP 36.6; O2SAT 98
== END 2021-08-17 15:04 | disposition home or self-care (01) ==
PROVIDERS: Emergency Provider Emergency Medicine; PCP Family Medicine
DX: E87.1 Hypo-osmolality and hyponatremia (principal); K21.00 Gastro-esophageal reflux disease with esophagitis, without bleeding; I25.10 Atherosclerotic heart disease of native coronary artery without angina pectoris; E78.5 Hyperlipidemia, unspecified; I10 Essential (primary) hypertension; F17.200 Nicotine dependence, unspecified, uncomplicated
CPT/HCPCS: 36415; 71046; 80053; 83690; 83880; 84484; 85025; 85610; 85730; 93005; 96374; 99284; A9270; J1885; J7040

== ENCOUNTER 2021-09-06 15:03 | Outpatient (CLI) | payer MEDICARE, MEDICAID, SELFPAY ==
[2021-09-06 15:55] LABS: Anion Gap 7 mmol/L (8-16); Blood Urea Nitrogen 9 mg/dL (7-18); Carbon Dioxide 28 mmol/L (21-32); Chloride 97 mmol/L (98-108); Estimated Glomerular Filt Rate > 60; Glucose 137 mg/dL (70-99); Osmolality Calculated 274 mOsm/kg (285-295); Potassium 4.1 mmol/L (3.5-5.1); Sodium 132 mmol/L (136-145)
== END 2021-09-06 15:04 | disposition home or self-care (01) ==
LOC: CHSLAB 15:07
PROVIDERS: PCP Family Medicine; Visit Provider Nurse Practitioner
DX: E87.1 Hypo-osmolality and hyponatremia (principal)
CPT/HCPCS: 36415; 80048

== ENCOUNTER 2021-09-30 08:36 | Emergency (ER) | payer MEDICARE, MEDICAID, SELFPAY ==
[2021-09-30] VITALS (8 sets, daily range): BP systolic 130–150; BP diastolic 81–87; PULSE 76–101; RESP 14–24; TEMP 36.6; O2SAT 97–100
--- NOTE | ~2021-09-30 | XR_ITS ---
XR chest 1V portable DATE: 09/30/2021 09:21 INDICATION: Increasing shortness of breath for past month. History of COPD. TECHNIQUE: Portable AP chest on 09/30/2021 at 0920 hours COMPARISON: 08/17/2021 PA and lateral chest FINDINGS: Normal heart size. Left coronary artery stent.. No hilar or mediastinal enlargement. Minimal atelectasis or infiltrate at the lung bases. The lungs otherwise appear clear. There is no ev idence of pneumothorax. There is minimal if any pleural fluid. Pulmonary vascularity appears within n ormal limits. IMPRESSION: Minimal infiltrate or atelectasis at lung bases Reviewed, dictated and finalized at location A.
--- NOTE | 2021-09-30 08:44 | ED.SOB ---
HPI - SOB/Dyspnea General Chief Complaint: Shortness of Breath/Dyspnea Stated Complaint: SOB Time Seen by Provider: 09/30/21 08:45 Source: patient Mode of arrival: EMS History of Present Illness HPI Narrative: 66-year-old male, smoker, history of BPH,alcohol use, hypertension, dyslipidemia, GERD, coronary artery disease status post stent, COPD presents to the with -- worsening shortness of breath for the past few days -- cough with mucoid sputum -- wheezing the patient ran out of his inhalers Denied fever. Denied chest pain MD elicited complaint: shortness of breath and cough Pertinent past history: COPD Onset (ago): week(s) Timing: constant Severity: severe Exacerbating factors: exertion Relieving factors: nothing Known history of: COPD Associated symptoms: denies other symptoms Treatment prior to arrival: none Related Data Home Medications Medication Instructions Recorded Confirmed aripiprazole 5 mg tablet 2 mg PO DAILY 09/16/19 09/30/21 atorvastatin 40 mg tablet 40 mg PO HS 09/16/19 09/30/21 famotidine 20 mg tablet 20 mg PO BID 09/16/19 09/30/21 mirtazapine 15 mg tablet 15 mg PO DAILY 09/16/19 09/30/21 omeprazole 40 mg capsule,delayed 40 mg PO DAILY 09/16/19 09/30/21 release quetiapine 200 mg tablet 400 mg PO HS 09/16/19 09/30/21 tamsulosin 0.4 mg capsule 0.4 mg PO DAILY 09/16/19 09/30/21 aspirin 81 mg tablet,delayed 81 mg PO DAILY 09/27/19 09/30/21 release folic acid 1 mg tablet 1 mg PO DAILY 09/27/19 09/30/21 dutasteride 0.5 mg capsule 0.5 mg PO DAILY 03/20/20 09/30/21 lamotrigine 200 mg tablet 200 mg PO DAILY 03/20/20 09/30/21 clopidogrel 75 mg tablet 75 mg PO DAILY 03/15/21 09/30/21 meclizine 25 mg chewable tablet 25 mg PO DAILY 03/15/21 09/30/21 naproxen 500 mg tablet 500 mg PO BID 05/18/21 09/30/21 escitalopram oxalate 20 mg tablet 20 tablet PO DAILY 08/17/21 09/30/21 Allergies Allergy/AdvReac Type Severity Reaction Status Date / Time No Known Allergies Allergy Verified 09/30/21 08:47 Review of Systems Review of Systems: All systems reviewed & are unremarkable except as noted in HPI and below Constitutional: Constitutional: Reports as per HPI and Reports no additional constitutional complaints Eyes: Eyes: Reports as per HPI and Reports no additional eye complaints ENT: Reports system reviewed and no additional complaints, except as documented and Reports as per HPI Cardiovascular: Cardiovascular: Reports as per HPI and Reports no additional cardiovascular complaints Respiratory: Respiratory: Reports as per HPI, Reports no additional respiratory complaints, Reports chest congestion, Reports cough, Reports dyspnea and Reports wheezing Gastrointestinal: Gastrointestinal: Reports as per HPI and Reports no additional gastrointestinal complaints Genitourinary: Genitourinary: Reports no additional male genitourinary complaints and Reports as per HPI Musculoskeletal: Musculoskeletal: Reports no additional musculoskeletal complaints and Reports as per HPI Integumentary/Breasts: Skin/Breast: Reports system reviewed and no additional complaints, except as docu and Reports as per HPI Neurologic: Reports system reviewed and no additional complaints, except as documented and Reports as per HPI Psychiatric: Psychiatric: Reports no additional psychiatric complaints and Reports as per HPI Endocrine: Endocrine: Reports no additional endocrine complaints and Reports as per HPI Hematologic/Lymphatic: Hematologic/Lymphatic: Reports no additional hematologic/lymphatic complaints and Reports as per HPI Allergic/Immunologic: Allergic/Immunologic: Reports no additional allergic/immunologic complaints and Reports as per HPI [facility] Past Medical History Medical History Anemia CAD (coronary artery disease) GERD (gastroesophageal reflux disease) Hyperlipidemia Hypertension Postural hypotension Surgical History Surgical History (Reviewed 09/30/21 @ 0
--- NOTE | 2021-09-30 08:48 | ECG_ITS ---
Measurements Intervals [place] Rate: 91 P: 26 CT: 185 QRS: 46 QRSD: 130 T: 18 QT: 381 QTc: 471 Interpretive Statements SINUS RHYTHM RIGHT BUNDLE BRANCH BLOCK BASELINE ARTIFACT- I, III, AVR, AVL, AVF ABNORMAL ECG Electronically Signed On 09-30-2021 10:10:38 CDT by Jim Ruiz D.O.
[2021-09-30 09:02] LABS: Basophils Absolute Auto 0.05 K/mm3 (0.00-0.10); Eosinophils Absolute Auto 0.23 K/mm3 (0.02-0.50); Eosinophils Percent Auto 4.4 % (1.0-6.0); Hematocrit 33.1 % (37.0-46.0); Hemoglobin 11.1 g/dL (12.4-15.3); Immature Granulocyte Absolute 0.01 K/mm3 (0.00-0.00); Immature Granulocyte Percent A 0.2 % (0.0-0.0); Lymphocytes Absolute Auto 1.98 K/mm3 (1.10-4.50); Mean Corpuscular HGB Conc 33.5 g/dL (32.0-36.0); Mean Corpuscular Volume 86.4 fL (78.0-102.0); Mean Platelet Volume 8.2 fl (8.7-11.0); Monocytes Absolute Auto 0.64 K/mm3 (0.10-0.90); Monocytes Percent Auto 12.3 % (2.0-11.0); Neutrophils Absolute Auto 2.3 K/mm3 (1.7-7.2); Neutrophils Percent Auto 44.1 % (50.0-70.0); Platelet Count Result 276 K/mm3 (150-420); Red Blood Count 3.83 M/mm3 (4.70-6.10); Red Cell Distribution Width 14.8 % (11.6-14.4); White Blood Count 5.2 K/mm3 (4.8-10.8)
[2021-09-30] MEDS: IPRATROPIUM 0.5 MG/ALBUTEROL SULFATE 2.5 MG AMPUL.NEB 3 ML INHALATION (09:09)
[2021-09-30] MEDS: methylPREDNISolone SOD SUCC 125 MG VIAL IM (09:13)
[2021-09-30 09:15] LABS: Prothrombin Time 10.7 Seconds (9.50-12.10)
[2021-09-30 09:24] LABS: Alanine Aminotransferase 29 U/L (16-63); Albumin Level 3.8 g/dL (3.4-5.0); Alkaline Phosphatase 66 U/L (46-116); Anion Gap 7 mmol/L (8-16); Aspartate Amino Transferase 15 U/L (15-37); Bilirubin,Total 0.4 mg/dL (0.00-1.00); Blood Urea Nitrogen 5 mg/dL (7-18); Calcium 8.3 mg/dL (8.5-10.1); Carbon Dioxide 28 mmol/L (21-32); Chloride 97 mmol/L (98-108); Estimated CRCL calculation 62 ml/min; Estimated Glomerular Filt Rate > 60; Glucose 122 mg/dL (70-99); NT Pro B Type Natriuretic Pept 24 pg/mL (0-125); Osmolality Calculated 272 mOsm/kg (285-295); Potassium 3.9 mmol/L (3.5-5.1); Sodium 132 mmol/L (136-145); Total Protein 6.7 g/dL (6.4-8.2); Troponin I 6.9 ng/L (0.00-60.4)
[2021-09-30 09:38] LABS: SARS-CoV-2 RNA PCR Negative (Negative)
[2021-09-30 09:43] LABS: Influenza A QL RT-PCR Negative (Negative); Influenza B QL RT-PCR Negative (Negative)
[2021-09-30] MEDS: AZITHROMYCIN 250 MG TABLET 500 MG PO (10:01)
[2021-09-30] MEDS: ALBUTEROL SULFATE NEB 2.5 MG/3 ML INH INHALATION (10:08)
== END 2021-09-30 10:24 | disposition home or self-care (01) ==
PROVIDERS: Emergency Provider Internal Medicine Critical Care Medicine; PCP Nurse Practitioner
DX: J44.1 Chronic obstructive pulmonary disease with (acute) exacerbation (principal); I10 Essential (primary) hypertension; I25.10 Atherosclerotic heart disease of native coronary artery without angina pectoris; E78.5 Hyperlipidemia, unspecified; K21.9 Gastro-esophageal reflux disease without esophagitis; N40.0 Benign prostatic hyperplasia without lower urinary tract symptoms; F17.210 Nicotine dependence, cigarettes, uncomplicated; Z95.5 Presence of coronary angioplasty implant and graft; Z20.822 Contact with and (suspected) exposure to COVID-19
CPT/HCPCS: 71045; 80053; 83880; 84484; 85025; 85610; 87502; 93005; 94640; 96372; 99284; A9270; C9803; J2930; U0003; U0005

== ENCOUNTER 2022-01-10 06:33 | Emergency (ER) | payer MEDICARE, MEDICAID, SELFPAY ==
--- NOTE | ~2022-01-10 | CT_ITS ---
EXAMINATION: CTA chest PE protocol DATE: 01/10/2022 08:57 INDICATION: Shortness of breath. Acute chest tightness. TECHNIQUE: Computed tomography angiography (CTA) of the chest was performed with 100 mL Omnipaque-350 intravenous contrast timed to evaluate the pulmonary arteries. Coronal maximum intensity projection 3D-reconstructions were created by the technologist. Automated exposure control and iterative reconst ruction technique were employed. The dose-length product was 686.25 mGy-cm. COMPARISON: Chest CT 05/18/2021 FINDINGS: The lungs demonstrate mild atelectasis. There is smooth septal thickening in the lungs, con sistent with mild pulmonary edema. No pleural effusion. There is no pulmonary embolus. There are webster ges of cholecystectomy. There is severe thoracic spondylosis. IMPRESSION: 1. No pulmonary embolus. 2. Mild pulmonary edema. Reviewed, dictated and finalized at location A.
[2022-01-10 06:35] VITALS: BP 131/82; PULSE 94; RESP 20; TEMP 36.1; O2SAT 97
--- NOTE | 2022-01-10 07:03 | ECG_ITS ---
Measurements Intervals [place] Rate: 84 P: 23 [place]: 176 QRS: 106 QRSD: 142 T: 33 QT: 389 QTc: 461 Interpretive Statements SINUS RHYTHM RIGHT AXIS DEVIATION RIGHT BUNDLE BRANCH BLOCK ABNORMAL ECG COMPARED TO ECG 09/30/2021 09:08:10 NO SIGNIFICANT CHANGES Electronically Signed On 01-10-2022 16:19:46 CDT by Rakan Herrmann M.D.
--- NOTE | 2022-01-10 07:03 | PC.NURSE ---
Pt resting comfortably, no SOB at this time. Report given to JACKLYN Prabhakar.
--- NOTE | 2022-01-10 07:05 | ED.GENADULT ---
HPI - General Adult General Chief complaint: Shortness of Breath/Dyspnea Stated complaint: Ambulance Time Seen by Provider: 01/10/22 07:03 History of Present Illness HPI narrative: Omero is a 66M with a PMH of tobacco abuse, CAD, GERD, HTN, HLD and anemia that prestented to the ED via EMS for SOB. He was pouring a cup of coffee when all of a sudden he had some dyspnea and called EMS. It resolved when EMS arrived. There were no fevers, chills, N/V CP or syncope. Related Data Home Medications Medication Instructions Recorded Confirmed aripiprazole 5 mg tablet 2 mg PO DAILY 09/16/19 01/10/22 atorvastatin 40 mg tablet 40 mg PO HS 09/16/19 01/10/22 famotidine 20 mg tablet 20 mg PO BID 09/16/19 01/10/22 omeprazole 40 mg capsule,delayed 40 mg PO DAILY 09/16/19 01/10/22 release quetiapine 200 mg tablet 400 mg PO HS 09/16/19 01/10/22 tamsulosin 0.4 mg capsule 0.4 mg PO DAILY 09/16/19 01/10/22 aspirin 81 mg tablet,delayed 81 mg PO DAILY 09/27/19 01/10/22 release folic acid 1 mg tablet 1 mg PO DAILY 09/27/19 01/10/22 dutasteride 0.5 mg capsule 0.5 mg PO DAILY 03/20/20 01/10/22 lamotrigine 200 mg tablet 200 mg PO DAILY 03/20/20 01/10/22 clopidogrel 75 mg tablet 75 mg PO DAILY 03/15/21 01/10/22 meclizine 25 mg chewable tablet 25 mg PO DAILY 03/15/21 01/10/22 naproxen 500 mg tablet 500 mg PO BID 05/18/21 01/10/22 escitalopram oxalate 20 mg tablet 20 tablet PO DAILY 08/17/21 01/10/22 fluticasone 250 mcg-salmeterol 50 1 inh inhalation DAILY 01/10/22 01/10/22 mcg/dose blistr powdr for inhalation (Advair Diskus) Allergies Allergy/AdvReac Type Severity Reaction Status Date / Time No Known Allergies Allergy Verified 09/30/21 08:47 Review of Systems Review of Systems: All systems reviewed & are unremarkable except as noted in HPI and below PMFSH Past Medical History Medical History Anemia CAD (coronary artery disease) GERD (gastroesophageal reflux disease) Hyperlipidemia Hypertension Postural hypotension Surgical History Surgical History History of cholecystectomy Stented coronary artery Family History Family History Father Cancer Mother Cancer Social History Social History Smoking packs per day: 3 Smoking cigarettes per day: 60.0 Years smoked: 48 Smoking pack-years: 144.00 Smoking status: Current every day smoker Tobacco type: cigarettes Second hand tobacco smoke exposure: Yes Alcohol intake: former Alcohol use details: denies alcohol use Substance use: former Other substance usage details: No drinking x 1 month per patient report Gender identity (if verbalized by the patient): Male Spiritual care concerns: No Exam Const: General: healthy appearing and no acute distress Nutritional Appearance: well nourished Orientation/consciousness: patient oriented x3 HENMT: Head: normal to inspection Ears: external ears normal Face/Nose/Sinus: Normal external nose present Face and sinus: normal facial exam Eyes: Conjunctivae: conjunctivae normal Pupils: Equal, round and reactive pupils present Neck: Neck: normal visual inspection Chest: Chest palpation & inspection: normal inspection of the chest Resp: Effort & Inspection: normal respiratory effort Other: Diffuse wheezing with prolonged expiratory phase Cardio: Rate: regular rate Rhythm: regular rhythm GI: Auscultation: normal bowel sounds Skin: General skin exam: normal color Rashes: no rashes Neuro: General: patient oriented x3 Extrem: General: normal to inspection Psych: Mental Status: mental status grossly normal Course Course Emergency Course: EKG showed NSR witha a rarte of 84, RBBB but no ST elevation EXAMINATION: CTA chest PE protocol DATE: 01/10/2022 08:57 INDICATION: Fina
[2022-01-10] MEDS: IPRATROPIUM 0.5 MG/ALBUTEROL SULFATE 2.5 MG AMPUL.NEB 3 ML INHALATION (07:14)
[2022-01-10 07:15] VITALS: PULSE 85; RESP 16; O2SAT 98
[2022-01-10 07:23] VITALS: PULSE 83; RESP 16; O2SAT 100
[2022-01-10 07:23] LABS: Basophils Absolute Auto 0.05 K/mm3 (0.00-0.10); Basophils Percent Auto 0.8 % (0.0-1.0); Eosinophils Absolute Auto 0.26 K/mm3 (0.02-0.50); Eosinophils Percent Auto 4.2 % (1.0-6.0); Hematocrit 32.1 % (37.0-46.0); Hemoglobin 10.8 g/dL (12.4-15.3); Immature Granulocyte Absolute 0.02 K/mm3 (0.00-0.00); Immature Granulocyte Percent A 0.3 % (0.0-0.0); Lymphocytes Absolute Auto 1.74 K/mm3 (1.10-4.50); Lymphocytes Percent Auto 27.8 % (18.0-42.0); Mean Corpuscular HGB Conc 33.6 g/dL (32.0-36.0); Mean Corpuscular Volume 89.2 fL (78.0-102.0); Mean Platelet Volume 8.7 fl (8.7-11.0); Monocytes Absolute Auto 0.59 K/mm3 (0.10-0.90); Monocytes Percent Auto 9.4 % (2.0-11.0); Neutrophils Absolute Auto 3.6 K/mm3 (1.7-7.2); Neutrophils Percent Auto 57.5 % (50.0-70.0); Platelet Count Result 337 K/mm3 (150-420); Red Cell Distribution Width 14.4 % (11.6-14.4); White Blood Count 6.3 K/mm3 (4.8-10.8)
[2022-01-10 07:52] LABS: Alanine Aminotransferase 35 U/L (16-63); Albumin Level 4.3 g/dL (3.4-5.0); Alkaline Phosphatase 66 U/L (46-116); Anion Gap 9 mmol/L (8-16); Aspartate Amino Transferase 23 U/L (15-37); Bilirubin,Total 0.3 mg/dL (0.00-1.00); Blood Urea Nitrogen 12 mg/dL (7-18); Calcium 8.6 mg/dL (8.5-10.1); Carbon Dioxide 25 mmol/L (21-32); Chloride 99 mmol/L (98-108); Estimated CRCL calculation 55 ml/min; Estimated Glomerular Filt Rate > 60; Glucose 129 mg/dL (70-99); NT Pro B Type Natriuretic Pept 45 pg/mL (0-125); Osmolality Calculated 277 mOsm/kg (285-295); Potassium 3.8 mmol/L (3.5-5.1); Sodium 133 mmol/L (136-145); Troponin I 9.4 ng/L (0.00-60.4)
[2022-01-10 08:09] LABS: Influenza A QL RT-PCR Negative (Negative); Influenza B QL RT-PCR Negative (Negative); SARS-CoV-2 RNA PCR Negative (Negative)
[2022-01-10] MEDS: FUROSEMIDE INJ 40 MG/4 ML VIAL IV PUSH (09:38)
[2022-01-10] MEDS: predniSONE 20 MG TABLET 40 MG PO (09:38)
[2022-01-10] MEDS: AZITHROMYCIN 250 MG TABLET 500 MG PO (09:38)
[2022-01-10 09:48] VITALS: BP 118/76; PULSE 79; RESP 16; TEMP 37.6; O2SAT 98
== END 2022-01-10 09:48 | disposition home or self-care (01) ==
PROVIDERS: Emergency Provider Family Medicine; PCP Nurse Practitioner
DX: J44.1 Chronic obstructive pulmonary disease with (acute) exacerbation (principal); J81.1 Chronic pulmonary edema; Z20.822 Contact with and (suspected) exposure to COVID-19; I25.10 Atherosclerotic heart disease of native coronary artery without angina pectoris; K21.9 Gastro-esophageal reflux disease without esophagitis; E78.5 Hyperlipidemia, unspecified; I10 Essential (primary) hypertension; F17.200 Nicotine dependence, unspecified, uncomplicated
CPT/HCPCS: 71275; 80053; 83880; 84484; 85025; 87502; 93005; 94640; 96374; 99284; A9270; J1940; J7512; Q9967; U0003; U0005

== ENCOUNTER 2022-01-17 08:28 | Outpatient (CLI) | payer MEDICARE, SELFPAY ==
--- NOTE | ~2022-01-17 | US_ITS ---
EXAMINATION: US retroperitoneal limited DATE: 01/17/2022 09:32 INDICATION: Urinary retention TECHNIQUE: Multiple grayscale and Doppler ultrasound images of the bladder were obtained. COMPARISON: CT dated 11/23/2018 FINDINGS: There is mild diffuse bladder wall thickening with some trabeculation of the mucosal surface. Calcula alfonso prevoid bladder volume of 547 mL with postvoid residual calculated bladder volume of 254 mL. IMPRESSION: 1. 254 mL postvoid residual bladder volume and mild bladder wall thickening with some trabeculation w hich could be seen with chronic outlet obstruction or neurogenic bladder. Reviewed, dictated and finalized at location B. IMPRESSION: 1. 254 mL postvoid residual bladder volume and mild bladder wall thickening wit h some trabeculation which could be seen with chronic outlet obstruction or claudio rogenic bladder.
== END 2022-01-17 08:29 | disposition home or self-care (01) ==
LOC: CHSIMG 08:31
PROVIDERS: PCP Family Medicine; Visit Provider Nurse Practitioner
DX: R33.9 Retention of urine, unspecified (principal)
CPT/HCPCS: 76775

== ENCOUNTER 2022-05-06 14:51 | Emergency (ER) | payer MEDICARE, MEDICAID, SELFPAY ==
[2022-05-06] VITALS (14 sets, daily range): BP systolic 138–157; BP diastolic 72–95; PULSE 87–108; RESP 13–31; TEMP 36.6–36.7; O2SAT 94–98
--- NOTE | ~2022-05-06 | XR_ITS ---
EXAMINATION: XR chest 1V portable Exam Date/Time: 05/06/2022 15:50 DIRECTOR OF PARKS AND RECREATION HISTORY: wheezing, increased weakness x 2 days hx cad, htn, stents Comparison: 09/30/2021. RESULT: Lines, tubes, and devices: None. Lungs and pleura: Low volumes with crowding, otherwise clear. Cardiomediastinal silhouette: Stable. Other: No acute osseous or upper abdominal finding. IMPRESSION: No acute cardiopulmonary process. Reviewed, dictated and finalized at location K. CTOR OF PARKS AND RECREATION
--- NOTE | ~2022-05-06 | CT_ITS ---
EXAMINATION: CT brain wo con DATE: 05/06/2022 16:05 INDICATION: AMS, INCREASED WEAKNESS . TECHNIQUE: Computed tomography (CT) of the head was performed without intravenous contrast. The mA wa s adjusted according to patient size. Iterative reconstruction technique was employed. The dose-lengt h product was 832.33 mGy-cm. COMPARISON: 03/25/2021. FINDINGS: No acute intracranial hemorrhage or extra-axial fluid collection. No hydrocephalus, mass, or herniation. No acute ischemic infarct. Unremarkable dural venous sinus attenuation. No acute osseous abnormality. The aerated spaces are clear. Mild atrophy and chronic white matter change. Atherosclerotic intracranial calcification. IMPRESSION: No acute intracranial process. Reviewed, dictated and finalized at location K. NCIAL SERVICES COUNSELOR
--- NOTE | 2022-05-06 15:15 | ED.GENADULT ---
HPI - General Adult General Chief complaint: Neuro Symptoms/Deficit Stated complaint: amb Time Seen by Provider: 05/06/22 15:02 History of Present Illness HPI narrative: Omero is a 67M with a PMH of confusion, frequent falls, alcohol abuse, hyponatremia, CAD, GERD, HTN, and HLD that came to the ED via EMS with a couple days of dizziness. He is poor historian and has trouble giving well defined answers but can answer simple questions. From the best information we can gather, when he stands up he gets dizzy and the world spins. (per EMS he was orthostatic and his BP dropped 30 pts). However, he also reports subjective weakness on the right side (lower greater than upper extremity) and blurry vision out of his left eye. He denies CP, fevers, chills, N/V, cough and dyspnea worse than usual. Related Data Home Medications Medication Instructions Recorded Confirmed atorvastatin 40 mg tablet 40 mg PO HS 09/16/19 01/10/22 famotidine 20 mg tablet 20 mg PO BID 09/16/19 01/10/22 omeprazole 40 mg capsule,delayed 40 mg PO DAILY 09/16/19 01/10/22 release quetiapine 200 mg tablet 400 mg PO HS 09/16/19 01/10/22 aspirin 81 mg tablet,delayed 81 mg PO DAILY 09/27/19 01/10/22 release dutasteride 0.5 mg capsule 0.5 mg PO DAILY 03/20/20 01/10/22 clopidogrel 75 mg tablet 75 mg PO DAILY 03/15/21 01/10/22 meclizine 25 mg chewable tablet 25 mg PO DAILY 03/15/21 01/10/22 naproxen 500 mg tablet 500 mg PO BID 05/18/21 01/10/22 escitalopram oxalate 20 mg tablet 20 tablet PO DAILY 08/17/21 01/10/22 Allergies Allergy/AdvReac Type Severity Reaction Status Date / Time No Known Allergies Allergy Verified 05/06/22 15:04 Review of Systems Review of Systems: All systems reviewed & are unremarkable except as noted in HPI and below PMFSH Past Medical History Medical History Anemia CAD (coronary artery disease) GERD (gastroesophageal reflux disease) Hyperlipidemia Hypertension Postural hypotension Surgical History Surgical History History of cholecystectomy Stented coronary artery Family History Family History Father Cancer Mother Cancer Social History Social History Smoking packs per day: 3 Smoking cigarettes per day: 60.0 Years smoked: 48 Smoking pack-years: 144.00 Smoking status: Current every day smoker Tobacco type: cigarettes Second hand tobacco smoke exposure: Yes Alcohol intake: former Alcohol use details: denies alcohol use Substance use: former Other substance usage details: No drinking x 1 month per patient report Living arrangements: alone Gender identity (if verbalized by the patient): Male Spiritual care concerns: No Exam Const: General: healthy appearing and no acute distress Nutritional Appearance: well nourished Orientation/consciousness: patient oriented x3 HENMT: Head: normal to inspection Ears: external ears normal Face/Nose/Sinus: Normal external nose present Eyes: Conjunctivae: conjunctivae normal Pupils: Equal, round and reactive pupils present EOM: EOMs intact bilaterally Neck: Neck: normal visual inspection Chest: Chest palpation & inspection: normal inspection of the chest Resp: Effort & Inspection: normal respiratory effort Other: Diffuse wheezing with prolonged expiratory phase Cardio: Rate: regular rate Rhythm: regular rhythm GI: Inspection: non-distended : General: Yes no CVA tenderness Back/Spine/Pelvis: Back: no CVA tenderness Skin: General skin exam: normal color Neuro: General: patient oriented x3 and moves all extremities Extrem: General: normal to inspection Psych: Other: Slightly confused Course Course Emergency Course: Ordered labs, CXR, EKG, breathing treatment, CT brain and fluids EKG showed NSR with a rate
[2022-05-06] MEDS: IPRATROPIUM 0.5 MG/ALBUTEROL SULFATE 2.5 MG AMPUL.NEB 3 ML INHALATION (15:20)
--- NOTE | 2022-05-06 15:28 | ECG_ITS ---
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
[2022-05-06] MEDS: SODIUM CHLORIDE 0.9% IV 1,000 ML 999 ML IV CONT (15:38)
[2022-05-06 15:45] LABS: Basophils Absolute Auto 0.03 K/mm3 (0.00-0.10); Basophils Percent Auto 0.5 % (0.0-1.0); Eosinophils Absolute Auto 0.21 K/mm3 (0.02-0.50); Eosinophils Percent Auto 3.2 % (1.0-6.0); Hematocrit 37.5 % (37.0-46.0); Hemoglobin 12.6 g/dL (12.4-15.3); Immature Granulocyte Absolute 0.02 K/mm3 (0.00-0.00); Immature Granulocyte Percent A 0.3 % (0.0-0.0); Lymphocytes Absolute Auto 1.74 K/mm3 (1.10-4.50); Lymphocytes Percent Auto 26.7 % (18.0-42.0); Mean Corpuscular HGB Conc 33.6 g/dL (32.0-36.0); Mean Corpuscular Hemoglobin 29.7 pg (27.0-31.0); Mean Corpuscular Volume 88.4 fL (78.0-102.0); Mean Platelet Volume 8.8 fl (8.7-11.0); Monocytes Absolute Auto 0.68 K/mm3 (0.10-0.90); Monocytes Percent Auto 10.4 % (2.0-11.0); Neutrophils Absolute Auto 3.8 K/mm3 (1.7-7.2); Neutrophils Percent Auto 58.9 % (50.0-70.0); Platelet Count Result 321 K/mm3 (150-420); Red Blood Count 4.24 M/mm3 (4.70-6.10); White Blood Count 6.5 K/mm3 (4.8-10.8)
[2022-05-06 16:04] LABS: Alanine Aminotransferase 32 U/L (16-63); Albumin Level 4.4 g/dL (3.4-5.0); Alkaline Phosphatase 91 U/L (46-116); Anion Gap 7 mmol/L (8-16); Aspartate Amino Transferase 17 U/L (15-37); Bilirubin,Total 0.3 mg/dL (0.00-1.00); Blood Urea Nitrogen 15 mg/dL (7-18); Carbon Dioxide 30 mmol/L (21-32); Chloride 98 mmol/L (98-108); Estimated Glomerular Filt Rate > 60; Glucose 126 mg/dL (70-99); Lactic Acid Reflex 1.2 mmol/L (0.4-2.0); NT Pro B Type Natriuretic Pept 25 pg/mL (0-125); Osmolality Calculated 282 mOsm/kg (285-295); Sodium 135 mmol/L (136-145); Total Protein 7.7 g/dL (6.4-8.2)
[2022-05-06 16:09] LABS: Ethanol < 3 mg/dL (0-6); Magnesium 1.9 mg/dL (1.8-2.4)
[2022-05-06 16:10] LABS: Lipase 34 U/L (16-77); Troponin I 4.5 ng/L (0.00-60.4)
== END 2022-05-06 17:25 | disposition home or self-care (01) ==
PROVIDERS: Emergency Provider Family Medicine; PCP Family Medicine
DX: E86.0 Dehydration (principal); R06.2 Wheezing; I25.10 Atherosclerotic heart disease of native coronary artery without angina pectoris; E78.5 Hyperlipidemia, unspecified; I10 Essential (primary) hypertension; F17.210 Nicotine dependence, cigarettes, uncomplicated; Z79.899 Other long term (current) drug therapy
CPT/HCPCS: 36415; 70450; 71045; 80053; 80307; 83605; 83690; 83735; 83880; 84484; 85025; 93005; 94640; 96360; 99284; J7030

== ENCOUNTER 2022-10-19 19:03 | Emergency (ER) | payer MEDICARE, MEDICAID, SELFPAY ==
--- NOTE | ~2022-10-19 | CT_ITS ---
EXAMINATION: CT abdomen pelvis w con INDICATION: Abdominal and left groin pain TECHNIQUE: Computed tomographic images of the abdomen and pelvis were obtained after the administrati on of 100 cc of Omnipaque 350 intravenous contrast. The dose-length product (DLP) was 1413.44 mGy-cm. Automated exposure control and iterative reconstruction technique were employed. COMPARISON: 11/23/2018 FINDINGS: The lung bases are clear. The heart size is normal. There are changes of cholecystectomy. T he liver, spleen, pancreas, and adrenal glands are normal. The right kidney is unremarkable. There is a 3.8 cm cyst of the left kidney. No pathologically enlarged abdominal or pelvic lymph nodes are veronique ntified. No free intraperitoneal gas or evidence of bowel obstruction. The appendix is normal. There are small inguinal hernias containing fat. There is severe lower thoracic and lumbar spondylosis. IMPRESSION: 1. Small inguinal hernias containing fat. Reviewed, dictated and finalized at location F.
[2022-10-19 19:07] VITALS: BP 143/93; PULSE 117; RESP 20; TEMP 37.1; O2SAT 96
--- NOTE | 2022-10-19 19:07 | ED.ABDPAIN ---
HPI - Abdominal Pain General Chief Complaint: Abdominal Pain Stated Complaint: Groin pain/knot Time Seen by Provider: 10/19/22 19:06 Source: patient Mode of arrival: EMS Limitations: no limitations History of Present Illness HPI narrative: Patient is a 67-year-old male with left lower quadrant groin pain. This has been going on for the past week. MD elicited complaint: abdominal pain Pertinent past history: none Onset (ago): week(s) (1) Pain Consistency: intermittent Location: LLQ and groin Severity: moderate Pain scale (0-10): 5 Quality: sharp Radiation: none Migration to: no migration Exacerbating factors: nothing Relieving factors: nothing Associated symptoms: denies other symptoms Related Data Home Medications Medication Instructions Recorded Confirmed atorvastatin 40 mg tablet 40 mg PO HS 09/16/19 10/19/22 famotidine 20 mg tablet 20 mg PO BID 09/16/19 10/19/22 omeprazole 40 mg capsule,delayed 40 mg PO DAILY 09/16/19 10/19/22 release quetiapine 200 mg tablet 400 mg PO HS 09/16/19 10/19/22 aspirin 81 mg tablet,delayed 81 mg PO DAILY 09/27/19 10/19/22 release dutasteride 0.5 mg capsule 0.5 mg PO DAILY 03/20/20 10/19/22 clopidogrel 75 mg tablet 75 mg PO DAILY 03/15/21 10/19/22 meclizine 25 mg chewable tablet 25 mg PO DAILY 03/15/21 10/19/22 naproxen 500 mg tablet 500 mg PO BID 05/18/21 10/19/22 escitalopram oxalate 20 mg tablet 20 tablet PO DAILY 08/17/21 10/19/22 folic acid 1 mg tablet 1 mg PO DAILY 10/19/22 10/19/22 tamsulosin 0.4 mg capsule 0.4 mg PO DAILY 10/19/22 10/19/22 Allergies Allergy/AdvReac Type Severity Reaction Status Date / Time No Known Allergies Allergy Verified 10/19/22 19:12 Review of Systems Review of Systems: All systems reviewed & are unremarkable except as noted in HPI and below Constitutional: Constitutional: Reports no additional constitutional complaints Eyes: Eyes: Reports no additional eye complaints ENT: Reports system reviewed and no additional complaints, except as documented Cardiovascular: Cardiovascular: Reports no additional cardiovascular complaints Respiratory: Respiratory: Reports no additional respiratory complaints Gastrointestinal: Gastrointestinal: Reports no additional gastrointestinal complaints Genitourinary: Genitourinary: Reports no additional male genitourinary complaints Musculoskeletal: Musculoskeletal: Reports no additional musculoskeletal complaints Integumentary/Breasts: Skin/Breast: Reports system reviewed and no additional complaints, except as docu Neurologic: Reports system reviewed and no additional complaints, except as documented Psychiatric: Psychiatric: Reports no additional psychiatric complaints Endocrine: Endocrine: Reports no additional endocrine complaints Hematologic/Lymphatic: Hematologic/Lymphatic: Reports no additional hematologic/lymphatic complaints Allergic/Immunologic: Allergic/Immunologic: Reports no additional allergic/immunologic complaints PMFSH Past Medical History Medical History Anemia CAD (coronary artery disease) GERD (gastroesophageal reflux disease) Hyperlipidemia Hypertension Postural hypotension Surgical History Surgical History History of cholecystectomy Stented coronary artery Family History Family History Father Cancer Mother Cancer Social History Social History Smoking packs per day: 3 Smoking cigarettes per day: 60.0 Years smoked: 48 Smoking pack-years: 144.00 Smoking status: Current every day smoker Tobacco type: cigarettes Second hand tobacco smoke exposure: Yes Alcohol intake: former Alcohol use details: denies alcohol use Substance use: former Other substance usage details: No drinking x 1 month per patient report Living arrangements:
[2022-10-19 19:35] LABS: Basophils Absolute Auto 0.04 K/mm3 (0.00-0.10); Basophils Percent Auto 0.6 % (0.0-1.0); Eosinophils Absolute Auto 0.18 K/mm3 (0.02-0.50); Eosinophils Percent Auto 2.7 % (1.0-6.0); Hematocrit 36.1 % (37.0-46.0); Hemoglobin 12.5 g/dL (12.4-15.3); Immature Granulocyte Absolute 0.02 K/mm3 (0.00-0.00); Immature Granulocyte Percent A 0.3 % (0.0-0.0); Lymphocytes Percent Auto 29.7 % (18.0-42.0); Mean Corpuscular HGB Conc 34.6 g/dL (32.0-36.0); Mean Corpuscular Hemoglobin 31.8 pg (27.0-31.0); Mean Corpuscular Volume 91.9 fL (78.0-102.0); Mean Platelet Volume 8.5 fl (8.7-11.0); Monocytes Absolute Auto 0.67 K/mm3 (0.10-0.90); Monocytes Percent Auto 9.9 % (2.0-11.0); Neutrophils Absolute Auto 3.8 K/mm3 (1.7-7.2); Neutrophils Percent Auto 56.8 % (50.0-70.0); Platelet Count Result 317 K/mm3 (150-420); Red Blood Count 3.93 M/mm3 (4.70-6.10); Red Cell Distribution Width 13.8 % (11.6-14.4); White Blood Count 6.7 K/mm3 (4.8-10.8)
[2022-10-19 19:49] LABS: Partial Thromboplastin Time 25.6 SEC (23.90-30.70); Prothrombin Time 10.5 Seconds (9.50-12.10)
[2022-10-19 19:51] LABS: Alanine Aminotransferase 43 U/L (16-63); Albumin Level 3.9 g/dL (3.4-5.0); Alkaline Phosphatase 80 U/L (46-116); Anion Gap 6 mmol/L (8-16); Aspartate Amino Transferase 30 U/L (15-37); Bilirubin,Total 0.3 mg/dL (0.00-1.00); Blood Urea Nitrogen 14 mg/dL (7-18); Calcium 8.7 mg/dL (8.5-10.1); Carbon Dioxide 31 mmol/L (21-32); Chloride 103 mmol/L (98-108); Estimated CRCL calculation 58 ml/min; Estimated Glomerular Filt Rate 60; Glucose 140 mg/dL (70-99); Osmolality Calculated 292 mOsm/kg (285-295); Potassium 4.3 mmol/L (3.5-5.1); Sodium 140 mmol/L (136-145); Total Protein 6.8 g/dL (6.4-8.2)
--- NOTE | 2022-10-19 19:57 | PC.NURSE ---
1954-PT TRANSPORTED TO IMAGING VIA HOSP[facility] STRETCHER, ESCORTED BY PROFESSOR OF LITERACY.
[2022-10-19 20:13] VITALS: BP 176/97; PULSE 100; RESP 20; O2SAT 96
[2022-10-19 20:21] LABS: Appearance Urine Clear (Clear); Bilirubin Urine Negative (Negative); Blood Urine Negative (Negative); Color Urine Light Yellow (Yellow); Glucose Urine UA Negative (Negative); Ketones Urine Negative (Negative); Leukocyte Esterase Ur Negative (Negative); Nitrate Urine Negative (Negative); Protein Urine Negative (Negative); Urobilinogen Urine 0.2 mg/dL (0.2-1.0); pH Urine 7.5 (5.0-8.0)
[2022-10-19 20:22] LABS: Add Urine Microscopic? NO
[2022-10-19 21:10] VITALS: BP 164/96; PULSE 98; RESP 20; O2SAT 95
== END 2022-10-19 21:10 | disposition home or self-care (01) ==
PROVIDERS: Emergency Provider Emergency Medicine; PCP Family Medicine
DX: R10.32 Left lower quadrant pain (principal); I25.10 Atherosclerotic heart disease of native coronary artery without angina pectoris; E78.5 Hyperlipidemia, unspecified; I10 Essential (primary) hypertension; F17.210 Nicotine dependence, cigarettes, uncomplicated
CPT/HCPCS: 36415; 74177; 80053; 81003; 85025; 85610; 85730; 99284; Q9967